=== PATIENT | female | born 2000 | race African-American/Black ===

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

== ENCOUNTER 2023-11-17 08:25 | Emergency (ER) | payer BC, OTHER, SELFPAY ==
[2023-11-17] MEDS ORDERED: NA CHLORIDE 0.9% 1,000 ML ONE (09:22)
[2023-11-17] MEDS ORDERED: ONDANSETRON 4 MG/2 ML VIAL ONE (09:22)
[2023-11-17 09:38] LABS: Absolute Basophils 0.1 K/uL (0-0.5); Absolute Lymphocytes (CBC) 1.7 K/uL (0.7-4.9); Absolute Monocytes 0.8 K/uL (0.1-1.3); Absolute Neutrophil 21.3 K/uL (1.8-8.0); Basophils % 0.3 % (0-1.3); Eosinophils % 0.1 % (0-4.4); Hematocrit 38.7 % (36.0-45.0); Hemoglobin 12.3 g/dL (12.0-15.0); Lymphocytes % 7.1 % (15.3-44.8); MCH 29.6 pg (27.0-35.0); MCHC 31.8 g/dL (32.0-36.0); MCV 93.2 fL (80-100); Monocytes % 3.4 % (3.3-12.3); Neutrophils % 89.1 % (41.7-73.7); Platelets 292 thou/uL (152-406); RBC Red Blood Cell Count 4.15 M/uL (3.86-4.86); Red Cell Distribution Width 14.1 % (12.1-15.2)
[2023-11-17 09:39] LABS: Sqamous Epithelial <5 /HPF (None Seen); Urine Bacteria None Seen /HPF (<20); Urine Bilirubin NEGATIVE (Negative); Urine Blood Negative (Negative); Urine Clarity Clear (Clear); Urine Color Light-Yellow (Yellow); Urine Culture Reflex Order NOT NEEDED; Urine Glucose NEGATIVE (Negative); Urine Ketones 4+ (Negative); Urine Microscopic Reflex YN ORDER UMIC; Urine Mucus Slight /HPF (None Seen); Urine Nitrite NEGATIVE (Negative); Urine Protein 1+ (Negative); Urine RBC None Seen /HPF (None Seen); Urine Urobilinogen Normal (Normal); Urine WBC <5 /HPF (<5)
[2023-11-17 09:52] LABS: Albumin 4.1 g/dL (3.4-5.0); Albumin/Globulin Ratio 1.2 (1.1-1.8); Anion Gap 13.9 mEq/L (5.0-15.0); Bilirubin Total 0.6 mg/dL (0.2-1.0); Globulin 3.5 g/dL (2.3-3.5); Potassium 3.9 mEq/L (3.5-5.1); Protein, Total 7.6 g/dL (6.4-8.2)
[2023-11-17 10:04] LABS: SARS-CoV-2 Antigen CONTROL BLUE LINE VIS/BG OK; SARS-CoV-2 Antigen Rapid Res Negative (Negative)
[2023-11-17 10:18] LABS: Differential Total Cells Count 100
[2023-11-17 10:19] LABS: Blood Morphology Comment NOT SEEN (NOT SEEN); Eosinophils 1 % (0-3); Lymphocytes 7 % (15-42); Monocytes 4 % (0-10); Platelet Estimate ADEQ; Segmented Neutrophils 87 % (40-80)
--- NOTE | 2023-11-17 10:19 | RAD REPORT ---
EXAM DESCRIPTION: CT - Abdomen Pelvis W Contrast - 11/17/2023 9:52 am CLINICAL HISTORY: Abdominal pain COMPARISON: none. TECHNIQUE: Computed axial tomography of the abdomen pelvis was obtained. 100 cc Isovue-300 was admin istered intravenously. Oral contrast was not requested which limits evaluation of bowel and appendix All CT scans are performed using dose optimization technique as appropriate and may include automated exposure control or mA/KV adjustment according to patient size. FINDINGS: The liver, spleen, pancreas, adrenal and kidneys appear unremarkable. There is no evidence of diverticulitis. The appendix is not clearly visualized. 3.9 centimeter left ovarian cystic mass. Small amount of free fluid Diastases of the rectus abdominis muscles 3 centimeters. Laxity of the abdominal wall at this region. Small bowel abuts linea alba above the level of the iliac crests IMPRESSION: 3.9 centimeter left ovarian cystic mass probably an ovarian cyst. Small amount of free f luid. The appendix is not clearly visualized. If the patient has clinical symptoms to suggest appendicitis then a CT scan with oral contrast and opacification of terminal ileum/cecum would be recommended
[2023-11-17] MEDS ORDERED: PROMETHAZINE INJ 25 MG/ML AMP ONE (10:41)
--- NOTE | 2023-11-17 13:17 | RAD REPORT ---
EXAM DESCRIPTION: CT - Abdomen Pelvis Wo Contrast - 11/17/2023 1:07 pm CLINICAL HISTORY: Abdominal pain. rule out appendicitis;Abd pain COMPARISON: <Comparisons> TECHNIQUE: CT imaging of the abdomen and pelvis was performed without contrast. Solid organ, bowel a nd vascular assessment is limited due to lack of IV and oral contrast. All CT scans are performed using dose optimization technique as appropriate and may include automated exposure control or mA/KV adjustment according to patient size. FINDINGS: The lower lung pollack are clear. The liver, spleen, pancreas, adrenal glands and kidneys are within normal limits for a limited non-co ntrast examination. No bowel obstruction, free air, free fluid or abscess. The appendix is normal. 4 cm left ovarian cys t. The osseous structures are within normal limits. IMPRESSION: Normal appendix. 4 cm left ovarian cyst. A limited non-contrast examination was performed as detailed.
--- NOTE | 2023-11-17 13:26 | ER ---
Nurse's Notes [facility] Name: Federico Conway Age: 23 yrs Sex: Female : 2000 Arrival Date: 11/17/2023 Time: 08:25 Bed 17 Private MD: Diagnosis: Vomiting, unspecified;Dehydration Presentation: 11/16 08:43 Chief complaint: Patient states: n/v, and umbilical pain / since 0300. Coronavirus kc6 screen: At this time, the client does not indicate any symptoms associated with coronavirus-19. Ebola Screen: No symptoms or risks identified at this time. Risk Assessment: Do you want to hurt yourself or someone else? Patient reports no desire to harm self or others. Onset of symptoms was November 17, 2023. 08:43 Method Of Arrival: Wheelchair kc6 08:43 Acuity: BRINDA 3 kc6 08:43 Initial Sepsis Screen: Does the patient meet any 2 criteria? No. Patient's initial kc6 sepsis screen is negative. Does the patient have a suspected source of infection? No. Patient's initial sepsis screen is negative. Triage Assessment: 08:46 General: Appears in no apparent distress. uncomfortable, well groomed, well developed, kc6 Behavior is calm, cooperative, appropriate for age, quiet. Pain: Complains of pain in umbilical area and suprapubic area Pain does not radiate. Pain currently is 9 out of 10 on a pain scale. EENT: No signs and/or symptoms were reported regarding the EENT system. Neuro: Level of Consciousness is awake, alert, obeys commands, Oriented to person, place, time, situation, Appropriate for age Reports headache. Cardiovascular: Capillary refill < 3 seconds. Respiratory: Airway is patent Trachea midline Respiratory effort is even, unlabored, Respiratory pattern is regular, symmetrical. GI: Pt is actively vomiting clear fluid, Bowel sounds present X 4 quads. Abd is soft X 4 quads Abdomen is tender to palpation in umbilical area Reports lower abdominal pain, upper abdominal pain, nausea, vomiting, Patient currently denies diarrhea. : No signs and/or symptoms were reported regarding the genitourinary system. Derm: No signs and/or symptoms reported regarding the dermatologic system. Skin is intact, is healthy with good turgor, Skin is pink, warm \T\ dry. Musculoskeletal: No signs and/or symptoms reported regarding the musculoskeletal system. Circulation, motion, and sensation intact. Capillary refill < 3 seconds, Range of motion: intact in all extremities. 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 - Infectious Disease History:: Denies. - Social history:: Smoking status: Patient denies any tobacco usage or history of. Screenin:48 [facility] ED Fall Risk Assessment (Adult) History of falling in the last 3 months, kc6 including since admission No falls in past 3 months (0 pts) Confusion or Disorientation No (0 pts) Intoxicated or Sedated No (0 pts) Impaired Gait No (0 pts) Mobility Assist Device Used No (0 pt) Altered Elimination No (0 pt) Score/Fall Risk Level 0 - 2 = Low Risk. Abuse screen: Denies threats or abuse. Denies injuries from another. Nutritional screening: No deficits noted. Tuberculosis screening: No symptoms or risk factors identified. Assessment: 08:48 Reassessment: please see triage. [facility] 09:32 Reassessment: Patient appears in no apparent distress at this time. No changes from [facility] previously documented assessment. Patient and/or family updated on plan of care and expected duration. Pain level reassessed. Patient is alert, oriented x 3, equal unlabored respirations, skin warm/dry/pink. 10:50 Reassessment: Patient appears in no apparent distress at this time. No changes from [facility] previously documented assessment. Patient and/or family updated on plan of care and expected duration. Pain level reassessed. Patient is alert, oriented x 3, equal unlabored respirations, skin warm/dry/pink. 11:15 Reassessment: pt reports finishing PO contrast. CT notified. [facility] 13:50 General: Discharge delayed as mother verbalized concern for low bp of 98/51. informed me[address] Dr Davis and he asked for PO Challenge. Water and crackers given. . Vital Signs: 08:43 BP 118 / 67; Pulse 75; Resp 16 S; Temp 97.3(A); Pulse Ox 100% on R/A; Weight 67.13 kg kc6 (R); Height 5 ft. 5 in. (R); Pain 9/10; 10:50 BP 120 / 62; Pulse 72; Resp 19 S; Pulse Ox 100% on R/A; kc6 13:50 BP 95 / 51; me1 13:50 BP 100 / 53; Pulse 92; Resp 16; Pulse Ox 100% on R/A; me1 14:19 BP 100 / 53; Pulse 73; Pulse Ox 100% on R/A; ap3 08:43 Body Mass Index 24.63 (67.13 kg, 165.1 cm) kc6 08:43 Pain Scale: Adult kc6 ED Course: 08:27 Patient arrived in ED. ra3 08:37 Sandor Davis MD is Attending Physician. rn 08:38 Darby Spencer RN is Primary Nurse. kc6 08:46 Triage completed. kc6 08:46 Arm band placed on. kc6 08:48 Patient has correct armband on for positive identification. Bed in low position. Call kc6 light in reach. Side rails up X 1. Adult w/ patient. Pulse ox on. NIBP on. Door closed. Lights dimmed. Pillow given. 08:58 Inserted saline lock: 20 gauge in right antecubital area, using aseptic technique. kc6 Blood collected. Flushed with 10 mL NS. 08:59 Assisted to bathroom. kc6 09:52 CT Abd/Pelvis - IV Contrast Only In Process Unspecified. EDMS 12:09 Report given to Natalie Serrano kc6 13:08 Abdomen In Process Unspecified. EDMS 14:29 Provided Education on: POC. Verbalized understanding. . me1 14:29 No provider procedures requiring assistance completed. me1 14:31 IV discontinued, intact, bleeding controlled, No redness/swelling at site. Pressure me1 dressing applied. Administered Medications: 09:31 Drug: NS 0.9% IV 1000 ml IV at 1 bolus Per protocol; 1000 mL bolus Route: IV; Rate: 1 kc6 bolus; Site: right antecubital; 10:47 Follow up: Response: No adverse reaction; IV Status: Completed infusion; IV Intake: kc6 1000ml 09:31 Drug: Ondansetron IVP 4 mg IVP once; over 2 minutes Route: IVP; Site: right antecubital;kc6 10:47 Follow up: Response: No adverse reaction; Nausea is decreased; Vomiting decreased kc6 10:47 Drug: Promethazine IVP 6.25 mg IVP once Route: IVP; Site: right antecubital; kc6 13:49 Follow up: Response: No adverse reaction; Nausea is decreased me1 Medication: 14:29 VIS not applicable for this client. me1 Intake: 10:47 IV: 1000ml; Total: 1000ml. kc6 Outcome: 13:25 Discharge ordered by . rn 14:31 Discharged to home ambulatory, with family, [facility] 14:31 Condition: stable 14:31 Discharge instructions given to patient, family, Instructed on discharge instructions, follow up and referral plans. medication usage, Demonstrated understanding of instructions, follow-up care, medications, Prescriptions given X 2, 14:33 Patient left the ED. me1 Signatures: Dispatcher [employer] EDSandor Aguila MD MD rn Prokisch, Amanda, RN RN norris3 Darby Spencer RN RN 6 Petra Gonzalez RN RN me1 Anna Garcia 3
--- NOTE | 2023-11-17 13:26 | EDPHYS ---
Physician Documentation [facility] Name: Federico Conway Age: 23 yrs Sex: Female : 2000 Arrival Date: 11/17/2023 Time: 08:25 Bed 17 Private MD: ED Physician Sandor Davis HPI: 11/16 09:22 This 23 yrs old Black Female presents to ER via Wheelchair with complaints of Vomiting. rn 09:22 23-year-old female with no significant past medical history presents to the emergency rn department with complaints of vomiting. The patient reports that she awoke around 3 AM this morning due to abdominal pain and has vomited several times without relief. She states that she was in her usual state of health yesterday and has never experienced the symptoms before. She also reports nausea, chills, and 1 loose bowel movement this morning. Denies sick contacts. Denies chest pain, shortness of breath, dizziness, weakness, urinary symptoms.. 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 - Infectious Disease History:: Denies. - Social history:: Smoking status: Patient denies any tobacco usage or history of. ROS: 09:36 ENT: Negative for injury, pain, and discharge, Cardiovascular: Negative for chest pain, rn palpitations, and edema, Respiratory: Negative for shortness of breath, cough, wheezing, and pleuritic chest pain, Back: Negative for injury and pain, : Negative for injury, bleeding, discharge, and swelling, Neuro: Negative for weakness, numbness, tingling 09:36 Constitutional: Positive for chills, malaise, Negative for fever, 09:36 Abdomen/GI: Positive for abdominal pain, nausea, vomiting, Negative for diarrhea, abdominal distension, dysphagia, hematemesis, 09:42 All other systems are negative, rn Exam: 09:44 Constitutional: This is a well developed, well nourished patient who is awake and rn alert but appears uncomfortable lying in the lateral recumbent position in bed. ENT: Nares patent. No nasal discharge, no septal abnormalities noted. Oropharynx with no redness, swelling, or masses, exudates, or evidence of obstruction, uvula midline. Mucous membranes moist. Neck: No cervical lymphadenopathy. Supple, full range of motion without nuchal rigidity. Cardiovascular: Regular rate and rhythm with a normal S1 and S2. No pulse deficits. Respiratory: Lungs have equal breath sounds bilaterally, clear to auscultation and percussion. No rales, rhonchi or wheezes noted. No increased work of breathing, no retractions or nasal flaring. 09:44 Abdomen/GI: Inspection: abdomen appears normal, Bowel sounds: normal, Palpation: soft, mild abdominal tenderness, in the umbilical area, right upper quadrant and right lower quadrant, rebound tenderness, is not appreciated, 09:44 : Exam negative for dysuria, CVA tenderness, bladder tenderness, Vital Signs: 08:43 BP 118 / 67; Pulse 75; Resp 16 S; Temp 97.3(A); Pulse Ox 100% on R/A; Weight 67.13 kg kc6 (R); Height 5 ft. 5 in. (R); Pain 9/10; 10:50 BP 120 / 62; Pulse 72; Resp 19 S; Pulse Ox 100% on R/A; kc6 13:50 BP 95 / 51; me1 13:50 BP 100 / 53; Pulse 92; Resp 16; Pulse Ox 100% on R/A; me1 14:19 BP 100 / 53; Pulse 73; Pulse Ox 100% on R/A; ap3 08:43 Body Mass Index 24.63 (67.13 kg, 165.1 cm) kc6 08:43 Pain Scale: Adult kc6 MDM: 08:37 Patient medically screened. rn 10:28 ED course: Radiologist unable to visualize appendix. Recommends oral contrast study and rn repeat CT abdomen pelvis. Patient with 23,000 white blood cell count, will obtain CT to definitively rule out appendicitis.. 13:25 Differential diagnosis: Nonspecific abd pain, gastritis, cholecystitis, pancreatitis, rn appendicitis, diverticulitis, viral gastroenteritis, gastroenteritis. Data reviewed: vital signs, nurses notes, lab test result(s), radiologic studies, CT scan, and as a result, I will discharge patient. Counseling: I had a detailed discussion with the patient and/or guardian regarding the historical points, exam findings, and any diagnostic results supporting the discharge/admit diagnosis, lab results, radiology results, the need for outpatient follow up, to return to the emergency department if symptoms worsen or persist or if there are any questions or concerns that arise at home. Response to treatment: the patient's symptoms have markedly improved after treatment, and as a result, I will discharge patient. 11/16 09:18 Order name: SARS RAPID; Complete Time: 10:08 rn 11/16 09:18 Order name: Flu; Complete Time: 10: rn 11/16 09:18 Order name: Urinalysis w/ reflexes; Complete Time: 09:52 rn 11/16 09:18 Order name: Test, Urine; Complete Time: 09:52 rn 11/16 09:18 Order name: CBC with Diff; Complete Time: 10:26 rn 11/16 09:18 Order name: CMP; Complete Time: 10: rn 11/16 09:18 Order name: Lipase; Complete Time: 10: rn 11/16 09:45 Order name: Manual Differential; Complete Time: 10:26 EDMS 11/16 09:18 Order name: CT Abd/Pelvis - IV Contrast Only; Complete Time: 10:26 rn 11/16 11:21 Order name: Abdomen ; Complete Time: 13:17 EDMS 11/16 09:18 Order name: IV Saline Lock; Complete Time: 09:20 rn 11/16 09:18 Order name: Labs collected and sent; Complete Time: 09:20 rn Administered Medications: 09:31 Drug: NS 0.9% IV 1000 ml IV at 1 bolus Per protocol; 1000 mL bolus Route: IV; Rate: 1 kc6 bolus; Site: right antecubital; 10:47 Follow up: Response: No adverse reaction; IV Status: Completed infusion; IV Intake: kc6 1000ml 09:31 Drug: Ondansetron IVP 4 mg IVP once; over 2 minutes Route: IVP; Site: right antecubital;kc6 10:47 Follow up: Response: No adverse reaction; Nausea is decreased; Vomiting decreased kc6 10:47 Drug: Promethazine IVP 6.25 mg IVP once Route: IVP; Site: right antecubital; kc6 13:49 Follow up: Response: No adverse reaction; Nausea is decreased me1 Disposition Summary: 11/17/23 13:25 Discharge Ordered Notes: Location: Home rn Problem: new rn Symptoms: have improved rn Condition: Stable rn Diagnosis - Vomiting, unspecified rn - Dehydration rn Followup: rn - With: Private Physician - When: As needed - Reason: Recheck today's complaints, Re-evaluation by your physician Discharge Instructions: - Discharge Summary Sheet rn - Dehydration, Adult rn - Nausea and Vomiting, Adult rn Forms: - Medication Reconciliation Form rn - Antibiotic improvement rn - Prescription Opioid Use rn - Patient Portal Instructions rn - Leadership Thank You Letter rn Prescriptions: - ondansetron 4 mg Oral Tablet,disintegrating - take 1 tablet ORAL route every 8 to 12 hours As needed as needed for nausea and rn vomiting; 12 tablet; Refills: 0, Product Selection Permitted - Augmentin 875-125 mg Oral Tablet - take 1 tablet ORAL route every 12 hours for 10 days; 20 tablet; Refills: 0, rn Product Selection Permitted Signatures: Dispatcher [employer] EDAL Sandor Davis MD MD rn Campbell, Kaitlyn, RN RN kc6 Petra Gonzalez RN me1 Corrections: (The following items were deleted from the chart) 09:19 09:19 CBC+H.LAB.BRZ ordered. EDAL EDAL 09:19 09:19 COMPREHENSIVE METABOLIC PANEL+C.LAB.BRZ ordered. EDAL EDAL 09:19 09:19 LIPASE+C.LAB.BRZ ordered. [facility] EDAL 09:44 09:36 ENT: Negative for injury, pain, and discharge, Cardiovascular: Negative for chest rn pain, palpitations, and edema, Respiratory: Negative for shortness of breath, cough, wheezing, and pleuritic chest pain, Back: Negative for injury and pain, : Negative for injury, bleeding, discharge, and swelling, Neuro: Negative for weakness, numbness, tingling rn 09:44 09:36 Abdomen/GI: Positive for abdominal pain, nausea, vomiting, Negative for abdominal rn distension, dysphagia, hematemesis, rn 11:21 10:28 Abdomen Pelvis W Con+CT.RAD.BRZ ordered. [facility] EDAL
[2023-11-17 15:00] VITALS: O2SAT 100
[2023-11-17 15:02] VITALS: TEMP 97.3
[2023-11-17 15:04] VITALS: BP 100/53
== END 2023-11-17 14:33 | disposition home or self-care (01) ==
LOC: ER 08:25
DX: E86.0 Dehydration (principal); Z11.52 Encounter for screening for COVID-19
CPT/HCPCS: 36415; 74176; 74177; 80053; 81001; 81025; 83690; 85025; 87804; 87811; 96361; 96374; 96375; 99284; J2405; J2550; J7030; Q9967

== ENCOUNTER 2024-03-14 18:23 | Emergency (ER) | payer OTHER, SELFPAY ==
[2024-03-14 19:17] LABS: Absolute Eosinophils 0.5 K/uL (0-0.5); Absolute Lymphocytes (CBC) 1.1 K/uL (0.7-4.9); Absolute Monocytes 0.5 K/uL (0.1-1.3); Absolute Neutrophil 10.6 K/uL (1.8-8.0); Basophils % 0.2 % (0-1.3); Eosinophils % 3.7 % (0-4.4); Hemoglobin 12.5 g/dL (12.0-15.0); Lymphocytes % 8.9 % (15.3-44.8); MCH 31.5 pg (27.0-35.0); MCHC 33.8 g/dL (32.0-36.0); MCV 93.3 fL (80-100); MPV 7.9 fL (7.6-11.3); Monocytes % 4.1 % (3.3-12.3); Neutrophils % 83.1 % (41.7-73.7); Platelets 281 thou/uL (152-406); RBC Red Blood Cell Count 3.96 M/uL (3.86-4.86); Red Cell Distribution Width 13.8 % (12.1-15.2)
[2024-03-14 19:36] LABS: SARS-CoV-2 Antigen CONTROL BLUE LINE VIS/BG OK; SARS-CoV-2 Antigen Rapid Res Negative (Negative)
[2024-03-14 19:51] LABS: Anion Gap 8.9 mEq/L (5.0-15.0); Potassium 3.9 mEq/L (3.5-5.1)
[2024-03-14] MEDS ORDERED: NA CHLORIDE 0.9% 1,000 ML ONE (19:57)
--- NOTE | 2024-03-14 20:12 | RAD REPORT ---
EXAM:OB Limited CLINICAL HISTORY: with vaginal bleeding TECHNIQUE: Limited OB ultrasound performed FINDINGS: Single live intrauterine in transverse presentation. Femur length 2 cm The placenta is anterior. No subchorionic/retroplacental bleed seen. Amniotic fluid normal Cervix 4.7 cm. The right and left adnexa are unremarkable. Cardiac activity 155 bpm. A myometrial contraction is suspected IMPRESSION: Single live intrauterine in transverse presentation. Estimated gestational 15 weeks 6 days JIMYM 08/30/2024. Normal amniotic fluid. If a survey is desired it should be performed in approximately 2-3 weeks
--- NOTE | 2024-03-14 20:29 | EDPHYS ---
Physician Documentation [facility] Name: Federico Conway Age: 23 yrs Sex: Female : 2000 Arrival Date: 03/14/2024 Time: 18:23 Bed 7 Private MD: ED Physician Elba Bell HPI: 03/14 18:51 This 23 yrs old Black Female presents to ER via Ambulatory with complaints of 15 wks dr5 , vomiting blood. 18:51 Patient is a 23-year-old female with no past medical history coming in with 1 episode dr5 of vomiting with small amount of blood in it. Patient also reports that she wiped once earlier with small amount of blood in it that has since resolved. Patient denies any pain. Patient reports that she has not vomited for 2 months. Patient currently denies any nausea, vomiting, diarrhea. Patient reports that her son at home was sent home from daycare with a fever. Patient reports she had a fever earlier this morning for approximately 2 hours that has resolved.. 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 - Infectious Disease History:: Denies. - Social history:: Smoking status: Patient denies any tobacco usage or history of. ROS: 18:51 Constitutional: as per hpi dr5 Exam: 18:51 Constitutional: This is a well developed, well nourished patient who is awake, alert, dr5 and in no acute distress. Head/Face: Normocephalic, atraumatic. Eyes: Pupils equal round and reactive to light, extra-ocular motions intact. Lids and lashes normal. Conjunctiva and sclera are non-icteric and not injected. Cornea within normal limits. Periorbital areas with no swelling, redness, or edema. Neck: Trachea midline, no thyromegaly or masses palpated, and no cervical lymphadenopathy. Supple, full range of motion without nuchal rigidity, or vertebral point tenderness. No Meningismus. Chest/axilla: Normal chest wall appearance and motion. Nontender with no deformity. No lesions are appreciated. Cardiovascular: Regular rate and rhythm with a normal S1 and S2. Normal PMI, no JVD. No pulse deficits. Respiratory: Lungs have equal breath sounds bilaterally, clear to auscultation. No rales, rhonchi or wheezes noted. No increased work of breathing, no retractions or nasal flaring. Abdomen/GI: Soft, non-tender, non-distended Skin: Warm, dry with normal turgor. Normal color with no rashes, no lesions, and no evidence of cellulitis. Neuro: Awake and alert, GCS 15, oriented to person, place, time, and situation. Cranial nerves II-XII grossly intact. Motor strength 5/5 in all extremities. Sensory grossly intact. Cerebellar exam normal. Normal gait. Vital Signs: 18:40 BP 122 / 84; Pulse 106; Resp 16; Temp 99.1; Pulse Ox 98% ; Weight 58.97 kg; Height 5 db ft. 5 in. ; 19:27 BP 117 / 82; Pulse 99; Resp 16; Pulse Ox 100% on R/A; al5 19:30 BP 117 / 75; Pulse 91; Resp 16; Pulse Ox 100% on R/A; al5 20:00 BP 108 / 71; Pulse 93; Resp 15; Pulse Ox 100% on R/A; al5 20:30 BP 104 / 73; Pulse 95; Resp 15; Pulse Ox 97% ; al5 18:40 Body Mass Index 21.63 (58.97 kg, 165.1 cm) db MDM: 18:35 Medical Screening Exam initiated dr5 03/15 00:09 Differential diagnosis: viral Infection, Spontaneous , Threatened . dr5 Data reviewed: vital signs, nurses notes. I considered the following discharge prescriptions or medication management in the emergency department Medications were administered in the Emergency Department. See MAR. Care significantly affected by the following Social Determinants of Health: Poor access to healthcare and/or lack of insurance, Poor access to transportation, Problems related to employment. Counseling: I had a detailed discussion with the patient and/or guardian regarding the historical points, exam findings, and any diagnostic results supporting the discharge/admit diagnosis, lab results, radiology results, the need for outpatient follow up, for definitive care, a family practitioner, an OB/Gyne specialist, to return to the emergency department if symptoms worsen or persist or if there are any questions or concerns that arise at home. Medication response: Improved pain. ED course: Explained all blood work and ultrasound results to patient. Printed out all results and handed to patient to take to OB. All questions answered. Patient is feeling much better. Negative COVID, flu. Increase hydration and take Tylenol every 6 hours as needed for pain.. 03/14 18:45 Order name: Influenza Screen (a \T\ B); Complete Time: 20:03 [facility] 03/14 18:45 Order name: SARS RAPID; Complete Time: 20:03 [facility] 03/14 18:45 Order name: Abo/rh Typing; Complete Time: 20:03 [facility] 03/14 18:45 Order name: Basic Metabolic Panel; Complete Time: 20:03 dr5 03/14 18:45 Order name: CBC with Diff; Complete Time: 20:03 [facility] 03/14 18:45 Order name: Quantitative Hcg; Complete Time: 20:03 [facility] 03/14 18:45 Order name: US OB Limited; Complete Time: 20:24 [facility] 03/14 18:45 Order name: IV Saline Lock; Complete Time: 19:27 [facility] 03/14 18:45 Order name: Labs collected and sent; Complete Time: 18:57 [facility] 03/14 18:45 Order name: NPO; Complete Time: 18:57 dr5 Administered Medications: 03/14 19:59 Drug: NS 0.9% IV 1000 ml IV at 1000 ml once; to be given as a bolus over 60 minutes al5 Route: IV; Rate: 1000 ml; Site: left antecubital; 20:36 Follow up: Response: No adverse reaction; IV Status: Order to discontinue infusion; IV al5 Intake: 200ml 20:36 Drug: Acetaminophen PO 1000 mg PO once Route: PO; al5 20:42 Follow up: Response: No adverse reaction; Medication administered at discharge. al5 Disposition Summary: 03/14/24 20:29 Discharge Ordered Notes: Location: Home dr5 Condition: Stable dr5 Diagnosis - Vomiting dr5 - 15 weeks gestation of dr5 Followup: dr5 - With: Emergency Department - When: As needed - Reason: Worsening of condition Followup: dr5 - With: Private Physician - When: 1 - 2 days - Reason: Recheck today's complaints, Continuance of care, Re-evaluation by your physician Discharge Instructions: - Discharge Summary Sheet dr5 - Vaginal Bleeding During , Second Trimester dr5 Forms: - Medication Reconciliation Form dr5 - Patient Portal Instructions dr5 - Leadership Thank You Letter dr5 Signatures: Dispatcher [employer] EDMS Jennifer Gipson, RN RN db Sherry Alcantara RN RN al5 Ilda Florence cc6 Benson Avila, BRADLEY-C JUDICIAL ASSISTANT-Cdr5 Corrections: (The following items were deleted from the chart) 18:45 18:45 OB Limited+US.RAD.BRZ ordered. EDMS EDMS 18:59 18:59 Urinalysis+U.LAB.BRZ ordered. EDMS EDMS 19:12 19:07 Misc. Order ordered. cc6 cc6
--- NOTE | 2024-03-14 20:29 | ER ---
Nurse's Notes [facility] Name: Federico Conway Age: 23 yrs Sex: Female : 2000 Arrival Date: 03/14/2024 Time: 18:23 Bed 7 Private MD: Diagnosis: Vomiting;15 weeks gestation of Presentation: 03/14 18:40 Chief complaint: Patient states: 15 WEEKS VOMITING A LOT THEN STARTED VOMITING db BLOOD. STARTED SPOTTING TODAY. Coronavirus screen: Client denies travel out of the [place] in the last 14 days. At this time, the client does not indicate any symptoms associated with coronavirus-19. Ebola Screen: Patient negative for fever greater than or equal to 101.5 degrees Fahrenheit, and additional compatible Ebola Virus Disease symptoms Patient denies exposure to infectious person. Patient denies travel to an Ebola-affected area in the 21 days before illness onset. No symptoms or risks identified at this time. Initial Sepsis Screen: Does the patient meet any 2 criteria? No. Patient's initial sepsis screen is negative. Does the patient have a suspected source of infection? No. Patient's initial sepsis screen is negative. Risk Assessment: Do you want to hurt yourself or someone else? Patient reports no desire to harm self or others. Onset of symptoms was March 14, 2024. 18:40 Method Of Arrival: Ambulatory db 18:40 Acuity: BRINDA 3 db Triage Assessment: 18:40 General: Appears in no apparent distress. comfortable, Behavior is calm, cooperative. db Neuro: Level of Consciousness is awake, alert, obeys commands, Oriented to person, place, time, situation. Respiratory: Airway is patent Respiratory effort is even, unlabored, Respiratory pattern is regular, symmetrical. GI: Reports nausea, vomiting. : Reports vaginal bleeding that is. 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 - Infectious Disease History:: Denies. - Social history:: Smoking status: Patient denies any tobacco usage or history of. Screenin:00 [facility] ED Fall Risk Assessment (Adult) History of falling in the last 3 months, ll1 including since admission No falls in past 3 months (0 pts) Confusion or Disorientation No (0 pts) Intoxicated or Sedated No (0 pts) Impaired Gait No (0 pts) Mobility Assist Device Used No (0 pt) Altered Elimination No (0 pt) Score/Fall Risk Level 0 - 2 = Low Risk Maintained a safe environment, Hourly rounding (assess needs \T\ fall precautionary measures) done. Abuse screen: Denies threats or abuse. Nutritional screening: No deficits noted. Tuberculosis screening: No symptoms or risk factors identified. Assessment: 19:00 General: Appears in no apparent distress. Behavior is calm, cooperative, appropriate ll1 for age. Pain: Denies pain. Respiratory: Reports cough that is. GI: Reports nausea, vomiting. EENT: Reports nasal congestion. 19:26 General: Appears in no apparent distress. comfortable, Behavior is calm, cooperative. al5 Pain: Denies pain. Neuro: Level of Consciousness is awake, alert, obeys commands, Oriented to person, place, time, situation. Cardiovascular: Capillary refill < 3 seconds Patient's skin is warm and dry. Respiratory: Airway is patent Respiratory effort is even, unlabored, Respiratory pattern is regular, symmetrical. GI: Reports nausea. : No signs and/or symptoms were reported regarding the genitourinary system. EENT: No signs and/or symptoms were reported regarding the EENT system. Derm: Skin is intact, is healthy with good turgor, Skin is pink, warm \T\ dry. normal. Musculoskeletal: No signs and/or symptoms reported regarding the musculoskeletal system. 20:43 Reassessment: Patient appears in no apparent distress at this time. Patient and/or al5 family updated on plan of care and expected duration. Pain level reassessed. Patient is alert, oriented x 3, equal unlabored respirations, skin warm/dry/pink. Patient states feeling better. Vital Signs: 18:40 BP 122 / 84; Pulse 106; Resp 16; Temp 99.1; Pulse Ox 98% ; Weight 58.97 kg; Height 5 db ft. 5 in. ; 19:27 BP 117 / 82; Pulse 99; Resp 16; Pulse Ox 100% on R/A; al5 19:30 BP 117 / 75; Pulse 91; Resp 16; Pulse Ox 100% on R/A; al5 20:00 BP 108 / 71; Pulse 93; Resp 15; Pulse Ox 100% on R/A; al5 20:30 BP 104 / 73; Pulse 95; Resp 15; Pulse Ox 97% ; al5 18:40 Body Mass Index 21.63 (58.97 kg, 165.1 cm) db ED Course: 18:25 Patient arrived in ED. mr 18:34 Benson Avila, METAL CONTROL COORDINATOR-C [facility]. dr5 18:34 Elba Bell MD is Attending Physician. dr5 18:40 Matt Aguila, RONNY is Primary Nurse. ll1 18:40 Arm band placed on Patient placed in an exam room, on a stretcher. ll1 18:46 Triage completed. db 18:57 SARS RAPID Sent. hb 18:57 Influenza Screen (a \T\ B) Sent. hb 18:59 Missed attempt(s): 22 gauge in left antecubital area. Bleeding controlled, band aid ll1 applied, catheter tip intact. 18:59 Initial lab(s) drawn, by va, sent to lab. Urine collected: clean catch specimen, ll1 cloudy, tea colored, Amount Voided: 200mL COVID swab sent to lab. Flu and/or RSV swab sent to lab. 19:26 Patient has correct armband on for positive identification. Bed in low position. Call al5 light in reach. Side rails up X 1. Provided Education on: plan of care. 19:27 No provider procedures requiring assistance completed. Inserted saline lock: 22 gauge al5 in left antecubital area, using aseptic technique. Flushed with 10 mL NS. 19:36 US OB Limited In Process Unspecified. EDMS 20:43 IV discontinued, intact, bleeding controlled, No redness/swelling at site. Pressure al5 dressing applied. Administered Medications: 19:59 Drug: NS 0.9% IV 1000 ml IV at 1000 ml once; to be given as a bolus over 60 minutes al5 Route: IV; Rate: 1000 ml; Site: left antecubital; 20:36 Follow up: Response: No adverse reaction; IV Status: Order to discontinue infusion; IV al5 Intake: 200ml 20:36 Drug: Acetaminophen PO 1000 mg PO once Route: PO; al5 20:42 Follow up: Response: No adverse reaction; Medication administered at discharge. al5 Medication: 19:26 VIS not applicable for this client. al5 Intake: 20:36 IV: 200ml; Total: 200ml. al5 Outcome: 20:29 Discharge ordered by . frida 20:43 Discharged to home ambulatory, with family, al5 20:43 Condition: good 20:43 Discharge instructions given to patient, Instructed on discharge instructions, follow up and referral plans. Demonstrated understanding of instructions, follow-up care, 20:43 Patient left the ED. al5 Signatures: Dispatcher [employer] EDAK Samantha Kelly, Reg Reg mr VillarrealCarlene, RN RN hb Matt Aguila RN RN ll1 Jennifer Gipson, RONNY RN db Sherry Alcantara RN RN al5 Benson Avila, METAL CONTROL COORDINATOR-C METAL CONTROL COORDINATOR-Cdr5 Corrections: (The following items were deleted from the chart) 18:47 18:40 BP 122 / 84; Pulse 106bpm; Resp 16bpm; Pulse Ox 98%; Temp 99.1F; 58.97 kg; Height db 5 ft. 5 in.; BMI: 21.6; db
[2024-03-14] MEDS ORDERED: ACETAMINOPHEN 500 MG TAB ONE (20:34)
[2024-03-14 21:40] VITALS: TEMP 99.1
[2024-03-14 21:47] VITALS: BP 104/73; O2SAT 97
== END 2024-03-14 20:43 | disposition home or self-care (01) ==
LOC: ER 18:23
DX: O21.9 Vomiting of pregnancy, unspecified (principal); Z3A.15 15 weeks gestation of pregnancy; Z11.52 Encounter for screening for COVID-19
CPT/HCPCS: 85025; 80048; 36415; 86900; 86901; 84702; 87804 ×2; 76815; 96360; 99284; 87811; J7030

== ENCOUNTER 2024-04-09 19:17 | Emergency (ER) | payer OTHER ==
[2024-04-09 20:32] LABS: Specific Gravity 1.024 (1.005-1.030)
[2024-04-09 20:39] LABS: Specific Gravity 1.025 (1.005-1.030); Sqamous Epithelial <5 /HPF (None Seen); Urine Bacteria <20 /HPF (<20); Urine Bilirubin NEGATIVE (Negative); Urine Blood Negative (Negative); Urine Clarity Clear (Clear); Urine Color Light-Yellow (Yellow); Urine Culture Reflex Order NOT NEEDED; Urine Glucose NEGATIVE (Negative); Urine Ketones NEGATIVE (Negative); Urine Micro Reflex YN NO BILL MICROSCOPIC; Urine Mucus Slight /HPF (None Seen); Urine Nitrite NEGATIVE (Negative); Urine Protein NEGATIVE (Negative); Urine RBC <5 /HPF (None Seen); Urine Urobilinogen Normal (Normal); Urine WBC <5 /HPF (<5); Urine pH 6.5 (5.0-7.0)
--- NOTE | 2024-04-09 22:30 | EDPHYS ---
Physician Documentation [facility] Name: Federico Conway Age: 23 yrs Sex: Female : 2000 Arrival Date: 04/09/2024 Time: 19:17 Bed 19 Private MD: ED Physician Dilshad Ruelas HPI: 04/09 20:05 This 23 yrs old Black Female presents to ER via Unassigned with complaints of Headache, sp4 Fever, 10 weeks . 20:16 23-year-old female presents with complaint of acute onset of fever 104 at home, sp4 starting at 10 AM today. Patient reported headache. Patient states she took Tylenol 2 hours prior to arrival. Patient is -0-0-1 at 18 weeks 6 days by LMP. LMP 11/29/2023. Patient is getting her obstetrical care at [place].. 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 - Infectious Disease History:: Denies. - Social history:: Smoking status: Patient denies any tobacco usage or history of. - Family history:: not pertinent. ROS: 20:16 Constitutional: Positive fever and hedache sp4 20:16 All other systems are negative, Exam: 20:16 Constitutional: This is a well developed, well nourished patient who is awake, alert, sp4 and in no acute distress. Head/Face: Normocephalic, atraumatic. Eyes: Pupils equal round and reactive to light, extra-ocular motions intact. Lids and lashes normal. Conjunctiva and sclera are not injected. Cornea within normal limits. Periorbital areas with no swelling, redness, or edema. ENT: Nares patent. No nasal discharge, no septal abnormalities noted. Tympanic membranes are normal and external auditory canals are clear. Oropharynx with no redness, swelling, or masses, exudates, or evidence of obstruction, uvula midline. Mucous membranes moist. Neck: Trachea midline, no thyromegaly or masses palpated, and no cervical lymphadenopathy. Supple, full range of motion without nuchal rigidity, or vertebral point tenderness. Chest/axilla: Normal chest wall appearance and motion. Nontender with no deformity. No lesions are appreciated. Cardiovascular: Regular rate and rhythm with a normal S1 and S2. No gallops, murmurs, or rubs. Normal PMI, no JVD. No pulse deficits. Respiratory: Lungs have equal breath sounds bilaterally, clear to auscultation and percussion. No rales, rhonchi or wheezes noted. No increased work of breathing, no retractions or nasal flaring. Abdomen/GI: Soft, with normal bowel sounds. No distension or tympany. No guarding or rebound. No evidence of tenderness throughout. Back: No spinal tenderness. No costovertebral tenderness. Skin: Warm, dry with normal turgor. Normal color with no rashes, no lesions, and no evidence of cellulitis. MS/ Extremity: Pulses equal, no cyanosis. Neurovascular intact. Full, normal range of motion. Neuro: Awake and alert, GCS 15, oriented to person, place, time, and situation. Cranial nerves II-XII grossly intact. Motor strength 5/5 in all extremities. Sensory grossly intact. Psych: Awake, alert, with orientation to person, place and time. Behavior, mood, and affect are within normal limits Vital Signs: 20:08 BP 109 / 66; Pulse 62; Resp 15; Temp 98.4(O); Pulse Ox 96% on R/A; Weight 63.05 kg; cm10 Height 5 ft. 5 in. ; Pain 7/10; 22:34 BP 118 / 72; Pulse 70; Resp 18; Temp 98; Pulse Ox 100% on R/A; kj2 20:08 Body Mass Index 23.13 (63.05 kg, 165.1 cm) cm10 20:08 Pain Scale: Adult cm10 [place] Coma Score: 20:16 Eye Response: spontaneous(4). Motor Response: obeys commands(6). Verbal Response: sp4 oriented(5). Total: 15. 20:16 Eye Response: spontaneous(4). Motor Response: obeys commands(6). Verbal Response: sp4 oriented(5). Total: 15. MDM: 20:06 Medical Screening Exam initiated sp4 20:16 Differential diagnosis: migraine, sinusitis, tension headache, vasomotor headache. Data sp4 reviewed: vital signs, nurses notes, old medical records, lab test result(s), Flu:. 04/09 20:06 Order name: Urinalysis W/Microscopic; Complete Time: 20:42 sp4 04/09 20:06 Order name: Test, Urine; Complete Time: 20:42 sp4 04/09 20:06 Order name: Influenza Screen (a \T\ B); Complete Time: 22:25 sp4 Administered Medications: No medications were administered Disposition Summary: 04/09/24 22:30 Discharge Ordered Notes: Location: Home sp4 Problem: new sp4 Symptoms: have improved sp4 Condition: Stable sp4 Diagnosis - Acute Viral Illness, Acute Fever sp4 Followup: sp4 - With: Private Physician - When: 7 - 10 days - Reason: Recheck today's complaints Discharge Instructions: - Discharge Summary Sheet sp4 - Viral Illness, Adult sp4 Forms: - Patient Portal Instructions sp4 - Work release form [facility] Prescriptions: - promethazine 25 mg Oral tablet - take 1 tablet ORAL route every 8 hours As needed PRN nausea; 30 tablet; sp4 Refills: 0, Product Selection Permitted Signatures: Dispatcher [employer] Dilshad Fernandez MD MD sp4 Lora Chua RN RN cm10 Corrections: (The following items were deleted from the chart) 20:14 20:08 Respiratory Syncytial Virus Ag+BA.LAB.BRZ ordered. EDMS EDMS 20:14 20:08 SARS-COV-2 Antigen Rapid+I.LAB.BRZ ordered. EDMS EDMS
--- NOTE | 2024-04-09 22:30 | ER ---
Nurse's Notes [facility] Name: Federico Conway Age: 23 yrs Sex: Female : 2000 Arrival Date: 04/09/2024 Time: 19:17 Bed 19 Private MD: Diagnosis: Acute Viral Illness, Acute Fever Presentation: 04/09 20:08 Chief complaint: Patient states: fever and headache onset today. 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 Coronavirus screen: Client denies travel out of the [place] in the last 14 days. Ebola Screen: Patient denies travel to an Ebola-affected area in the 21 days before illness onset. Initial Sepsis Screen: Does the patient meet any 2 criteria? No. Patient's initial sepsis screen is negative. Does the patient have a suspected source of infection? No. Patient's initial sepsis screen is negative. Risk Assessment: Do you want to hurt yourself or someone else? Patient reports no desire to harm self or others. Onset of symptoms was April 09, 2024. 20:08 Method Of Arrival: Ambulatory cm10 20:08 Acuity: BRINDA 4 cm10 Triage Assessment: 20:09 Headache History: Denies prior headaches. General: Appears in no apparent distress. cm10 uncomfortable, Behavior is calm, cooperative, appropriate for age. Neuro: No deficits noted. Level of Consciousness is awake, alert, obeys commands, Oriented to person, place, time, situation, Appropriate for age. Respiratory: No deficits noted. Airway is patent Respiratory effort is even, unlabored, Respiratory pattern is regular, symmetrical. 22:35 Pain: Pain began 1 day ago. Also complains of no other associated symptoms. 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 - Infectious Disease History:: Denies. - Social history:: Smoking status: Patient denies any tobacco usage or history of. - Family history:: not pertinent. Screenin:00 [facility] ED Fall Risk Assessment (Adult) History of falling in the last 3 months, kj2 including since admission No falls in past 3 months (0 pts) Confusion or Disorientation No (0 pts) Intoxicated or Sedated No (0 pts) Impaired Gait No (0 pts) Mobility Assist Device Used No (0 pt) Altered Elimination No (0 pt) Score/Fall Risk Level 0 - 2 = Low Risk Maintained a safe environment, Hourly rounding (assess needs \T\ fall precautionary measures) done. Abuse screen: Denies threats or abuse. Denies injuries from another. Nutritional screening: No deficits noted. Tuberculosis screening: No symptoms or risk factors identified. Assessment: 22:00 Reassessment: Patient appears in no apparent distress at this time. Patient and/or kj2 family updated on plan of care and expected duration. Pain level reassessed. Patient is alert, oriented x 3, equal unlabored respirations, skin warm/dry/pink. General: Appears Behavior is calm, cooperative. Pain: Complains of pain in headache Pain currently is 4 out of 10 on a pain scale. Neuro: Level of Consciousness is awake, alert, obeys commands, Oriented to person, place, time, situation. Cardiovascular: Patient's skin is warm and dry. Respiratory: Airway is patent Respiratory effort is even, unlabored. GI: No signs and/or symptoms were reported involving the gastrointestinal system. : No signs and/or symptoms were reported regarding the genitourinary system. 22:36 Reassessment: Patient appears in no apparent distress at this time. Patient and/or kj2 family updated on plan of care and expected duration. Pain level reassessed. Patient is alert, oriented x 3, equal unlabored respirations, skin warm/dry/pink. Vital Signs: 20:08 BP 109 / 66; Pulse 62; Resp 15; Temp 98.4(O); Pulse Ox 96% on R/A; Weight 63.05 kg; cm10 Height 5 ft. 5 in. ; Pain 7/10; 22:34 BP 118 / 72; Pulse 70; Resp 18; Temp 98; Pulse Ox 100% on R/A; kj2 20:08 Body Mass Index 23.13 (63.05 kg, 165.1 cm) cm10 20:08 Pain Scale: Adult cm10 [place] Coma Score: 20:16 Eye Response: spontaneous(4). Motor Response: obeys commands(6). Verbal Response: sp4 oriented(5). Total: 15. 20:16 Eye Response: spontaneous(4). Motor Response: obeys commands(6). Verbal Response: sp4 oriented(5). Total: 15. ED Course: 19:37 Patient arrived in ED. im 20:05 Dilshad Ruelas MD is Attending Physician. sp4 20:09 Triage completed. cm10 20:09 Arm band placed on right wrist. Patient placed in waiting room. cm10 22:00 Patient has correct armband on for positive identification. Call light in reach. Adult kj2 w/ patient. Provided Education on: call light. 22:32 Maryann Mora, RONNY is Primary Nurse. kj2 22:36 No provider procedures requiring assistance completed. Patient did not have IV access kj2 during this emergency room visit. Administered Medications: No medications were administered Medication: 22:35 VIS not applicable for this client. kj2 Outcome: 22:30 Discharge ordered by . sp4 22:36 Discharged to home kj2 22:36 Condition: stable 22:36 Discharge instructions given to patient, Instructed on discharge instructions, follow up and referral plans. 22:44 Patient left the ED. kj2 Signatures: Dilshad Ruelas MD MD sp4 Kusum Bingham Clarissa RN RN cm10 Maryann Mora RN RN kj2
[2024-04-12 01:46] VITALS: BP 118/72; TEMP 98; O2SAT 100
== END 2024-04-09 22:44 | disposition home or self-care (01) ==
LOC: ER 19:17
DX: O98.512 Other viral diseases complicating pregnancy, second trimester (principal); Z3A.18 18 weeks gestation of pregnancy
CPT/HCPCS: 81001; 81025; 87804; 99283

== ENCOUNTER 2024-05-29 21:08 | Emergency (ER) | payer OTHER ==
[2024-05-29 23:23] LABS: Absolute Basophils 0.1 K/uL (0-0.5); Absolute Eosinophils 0.4 K/uL (0-0.5); Absolute Lymphocytes (CBC) 2.1 K/uL (0.7-4.9); Absolute Monocytes 0.9 K/uL (0.1-1.3); Absolute Neutrophil 6.9 K/uL (1.8-8.0); Basophils % 0.6 % (0-1.3); Hematocrit 26.3 % (36.0-45.0); Hemoglobin 8.9 g/dL (12.0-15.0); MCH 31.7 pg (27.0-35.0); MCHC 33.7 g/dL (32.0-36.0); MPV 8.8 fL (7.6-11.3); Monocytes % 8.4 % (3.3-12.3); Platelets 182 thou/uL (152-406); Red Cell Distribution Width 13.7 % (12.1-15.2)
[2024-05-29 23:45] LABS: Albumin 2.7 g/dL (3.4-5.0); Albumin/Globulin Ratio 0.7 (1.1-1.8); Alkaline Phosphatase 79 U/L (45-117); Anion Gap 8.7 mEq/L (5.0-15.0); BUN Blood Urea Nitrogen 5 mg/dL (7-18); Bicarbonate 25 mEq/L (21-32); Glomerular Filtration Rate 131 ml/min (=/>90); Glucose Level 72 mg/dL (74-106); Magnesium 1.9 mg/dL (1.6-2.4); Potassium 3.7 mEq/L (3.5-5.1); Protein, Total 6.7 g/dL (6.4-8.2); Sodium Level 139 mEq/L (136-145)
[2024-05-29] MEDS ORDERED: NA CHLORIDE 0.9% 1,000 ML ONE (23:46)
[2024-05-29 23:51] LABS: ALT/SGPT < 14 U/L (13-56); AST/SGOT < 10 U/L (15-37); Bilirubin Direct < 0.2 mg/dL (0-0.2); Bilirubin Total < 0.2 mg/dL (0.2-1.0); Troponin High Sensitivity < 3.0 pg/mL (<58.9)
[2024-05-30 00:06] LABS: Specific Gravity 1.018 (1.005-1.030); Sqamous Epithelial <5 /HPF (None Seen); Urine Bacteria None Seen /HPF (<20); Urine Bilirubin NEGATIVE (Negative); Urine Blood Negative (Negative); Urine Clarity Turbid (Clear); Urine Color Light-Yellow (Yellow); Urine Culture Reflex Order NOT NEEDED; Urine Glucose NEGATIVE (Negative); Urine Ketones TRACE (Negative); Urine Microscopic Reflex YN ORDER UMIC; Urine Mucus Slight /HPF (None Seen); Urine Nitrite NEGATIVE (Negative); Urine Protein NEGATIVE (Negative); Urine RBC <5 /HPF (None Seen); Urine Urobilinogen Normal (Normal); Urine WBC <5 /HPF (<5)
--- NOTE | 2024-05-30 00:26 | ER ---
Nurse's Notes [facility] Name: Federico Conway Age: 23 yrs Sex: Female : 2000 Arrival Date: 05/29/2024 Time: 21:08 Bed 5 Private MD: Diagnosis: Headache Presentation: 05/29 21:26 Chief complaint: Patient states: Headache onset this morning. Pt states that around cm10 1800 today she felt light headed and stumbled. Pt states that her headache is now worse. pt is approximately 25 weeks . Coronavirus screen: Client denies travel out of the [place] in the last 14 days. Ebola Screen: Patient denies travel to an Ebola-affected area in the 21 days before illness onset. Initial Sepsis Screen: Does the patient meet any 2 criteria? No. Patient's initial sepsis screen is negative. Does the patient have a suspected source of infection? No. Patient's initial sepsis screen is negative. Risk Assessment: Do you want to hurt yourself or someone else? Patient reports no desire to harm self or others. Onset of symptoms was May 29, 2024. 21:26 Method Of Arrival: Ambulatory cm10 21:26 Acuity: BRINDA 3 cm10 Triage Assessment: 21:29 Headache History: Denies prior headaches. General: Appears in no apparent distress. cm10 comfortable, Behavior is calm, cooperative. Pain: Complains of pain in back of head Pain currently is 7 out of 10 on a pain scale. Quality of pain is described as throbbing, Pain began suddenly. Neuro: No deficits noted. Level of Consciousness is awake, alert, obeys commands, Oriented to person, place, time, situation, Appropriate for age. Respiratory: No deficits noted. Airway is patent Respiratory effort is even, unlabored, Respiratory pattern is regular, symmetrical. 23:50 Pain: Also complains of no other associated symptoms. 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 - Infectious Disease History:: Denies. - Social history:: Smoking status: Patient denies any tobacco usage or history of. Screenin:50 [facility] ED Fall Risk Assessment (Adult) History of falling in the last 3 months, al5 including since admission No falls in past 3 months (0 pts) Confusion or Disorientation No (0 pts) Intoxicated or Sedated No (0 pts) Impaired Gait No (0 pts) Mobility Assist Device Used No (0 pt) Altered Elimination No (0 pt) Score/Fall Risk Level 0 - 2 = Low Risk Oriented to surroundings, Maintained a safe environment, Hourly rounding (assess needs \T\ fall precautionary measures) done. Abuse screen: Denies threats or abuse. Denies injuries from another. Nutritional screening: No deficits noted. Tuberculosis screening: No symptoms or risk factors identified. Assessment: 23:50 Reassessment: assumed care of patient at this time. patient about 26 weeks al5 with 2nd child. General: Appears in no apparent distress. comfortable, Behavior is calm, cooperative. Pain: Denies pain. Neuro: Level of Consciousness is awake, alert, obeys commands, Oriented to person, place, time, situation. Cardiovascular: Capillary refill < 3 seconds Patient's skin is warm and dry. Respiratory: Airway is patent Respiratory effort is even, unlabored, Respiratory pattern is regular, symmetrical. GI: No signs and/or symptoms were reported involving the gastrointestinal system. : No signs and/or symptoms were reported regarding the genitourinary system. EENT: No signs and/or symptoms were reported regarding the EENT system. Derm: Skin is intact, is healthy with good turgor, Skin is pink, warm \T\ dry. normal. Musculoskeletal: No signs and/or symptoms reported regarding the musculoskeletal system. 05/30 01:00 Reassessment: Patient appears in no apparent distress at this time. Patient and/or al5 family updated on plan of care and expected duration. Pain level reassessed. Patient is alert, oriented x 3, equal unlabored respirations, skin warm/dry/pink. Patient states feeling better. Vital Signs: 05/29 21:26 BP 107 / 68; Pulse 80; Resp 16; Temp 97.9(O); Pulse Ox 100% ; Weight 63.5 kg; Height 5 cm10 ft. 5 in. ; Pain 7/10; 23:48 BP 96 / 51; Pulse 74; Resp 16; Pulse Ox 99% on R/A; al5 05/30 00:00 BP 94 / 57; Pulse 71; Resp 15; Pulse Ox 99% on R/A; al5 00:30 BP 96 / 56; Pulse 73; Resp 16; Pulse Ox 98% on R/A; al5 01:15 BP 91 / 58; Pulse 75; Resp 15; Pulse Ox 99% ; al5 05/29 21:26 Body Mass Index 23.30 (63.50 kg, 165.1 cm) cm10 05/29 21:26 Pain Scale: Adult cm10 Vitals: 00:30 Heart Tones FHT 152 bpm. al5 ED Course: 05/29 21:10 Patient arrived in ED. jj6 21:16 Kiley Marques FNP-C is PHCP. kb 21:16 Kris Jimenes MD is Attending Physician. kb 21:16 Dilshad Ruelas MD is Attending Physician. kb 21:28 Triage completed. cm10 21:30 Arm band placed on left wrist. Patient placed in waiting room. cm10 23:12 Inserted saline lock: 20 gauge in left antecubital area, using aseptic technique. Blood hw collected. Flushed with 10 mL NS. 23:50 Sherry Alcantara, RONNY is Primary Nurse. al5 23:50 Patient has correct armband on for positive identification. Bed in low position. Call al5 light in reach. Side rails up X2. Provided Education on: plan of care. 23:50 No provider procedures requiring assistance completed. al5 05/30 01:32 IV discontinued, intact, bleeding controlled, No redness/swelling at site. Pressure al5 dressing applied. Administered Medications: 05/29 23:50 Drug: NS 0.9% IV 1000 ml IV at 1000 ml once; to be given as a bolus over 60 minutes al5 Route: IV; Rate: 1000 ml; Site: left antecubital; 05/30 01:24 Follow up: Response: No adverse reaction; IV Status: Completed infusion; IV Intake: al5 1000ml Medication: 05/29 23:50 VIS not applicable for this client. al5 Intake: 05/30 01:24 IV: 1000ml; Total: 1000ml. al5 Outcome: 00:25 Discharge ordered by . mariam 01:32 Discharged to home ambulatory, with family, al5 01:32 Condition: good 01:32 Discharge instructions given to patient, Instructed on discharge instructions, follow up and referral plans. Demonstrated understanding of instructions, follow-up care, :32 Patient left the ED. al5 Signatures: Kiley Marques, CHEF INSTRUCTOR-C CHEF INSTRUCTOR-Ckb EladiaEduarda martinez jj6 Lora Chua, RN RN cm10 Sherry Alcantara RN RN al5 Nancy Devlin Corrections: (The following items were deleted from the chart) : 00:23 General: Appears in no apparent distress. comfortable, Behavior is calm, al5 cooperative, al5 00: Pain: Denies pain. al5 al5 : 00: Neuro: Level of Consciousness is awake, alert, obeys commands, Oriented to al5 person, place, time, situation, al5 00:23 Cardiovascular: Capillary refill < 3 seconds Patient's skin is warm and dry. al5 al5 : 00: Respiratory: Airway is patent Respiratory effort is even, unlabored, Respiratory al5 pattern is regular, symmetrical, al5 00: GI: No signs and/or symptoms were reported involving the gastrointestinal system. al5 al5 : 00: : No signs and/or symptoms were reported regarding the genitourinary system. al5al5 : 00:23 EENT: No signs and/or symptoms were reported regarding the EENT system. al5 al5 :: Derm: Skin is intact, is healthy with good turgor, Skin is pink, warm \T\ dry. al5 normal, al5 00:23 Musculoskeletal: No signs and/or symptoms reported regarding the musculoskeletal al5 system. al5 00:23 Reassessment: assumed care of patient at this time. patient about 26 weeks al5 with 2nd child al5
--- NOTE | 2024-05-30 00:26 | EDPHYS ---
Physician Documentation [facility] Name: Federico Conway Age: 23 yrs Sex: Female : 2000 Arrival Date: 05/29/2024 Time: 21:08 Bed 5 Private MD: ED Physician Dilshad Ruelas HPI: 05/29 21:24 This 23 yrs old Black Female presents to ER via Unassigned with complaints of kb Dizziness, Headache. 21:24 Pt is a 23 year old female who presents for headache and lightheadedness. Reports kb headache started this morning. States she was getting ready for work at 1800, got lightheaded and has had worsening headache since then. Denies nausea, vomiting. . 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 - Infectious Disease History:: Denies. - Social history:: Smoking status: Patient denies any tobacco usage or history of. ROS: 21:26 Constitutional: As per HPI kb Exam: 21:26 Constitutional: This is a well developed, well nourished patient who is awake, alert, kb and in no acute distress. Head/Face: Normocephalic, atraumatic. Eyes: Pupils equal round and reactive to light, extra-ocular motions intact. Lids and lashes normal. Conjunctiva and sclera are non-icteric and not injected. Cornea within normal limits. Periorbital areas with no swelling, redness, or edema. ENT: Moist Mucous membranes Cardiovascular: Regular rate Respiratory: Respirations even and unlabored. No increased work of breathing. Talking in full sentences Abdomen/GI: Soft, non-tender. No distention Skin: Warm, dry with normal turgor. Normal color. MS/ Extremity: Pulses equal, no cyanosis. Neurovascular intact. Full, normal range of motion. Neuro: Awake and alert, GCS 15, oriented to person, place, time, and situation. 05/30 00:22 ECG was reviewed by the Attending Physician. Vital Signs: 05/29 21:26 BP 107 / 68; Pulse 80; Resp 16; Temp 97.9(O); Pulse Ox 100% ; Weight 63.5 kg; Height 5 cm10 ft. 5 in. ; Pain 7/10; 23:48 BP 96 / 51; Pulse 74; Resp 16; Pulse Ox 99% on R/A; al5 05/30 00:00 BP 94 / 57; Pulse 71; Resp 15; Pulse Ox 99% on R/A; al5 00:30 BP 96 / 56; Pulse 73; Resp 16; Pulse Ox 98% on R/A; al5 01:15 BP 91 / 58; Pulse 75; Resp 15; Pulse Ox 99% ; al5 05/29 21:26 Body Mass Index 23.30 (63.50 kg, 165.1 cm) cm10 05/29 21:26 Pain Scale: Adult cm10 MDM: 05/29 21:16 Medical Screening Exam initiated 05/30 00:25 Differential diagnosis: cardiac arrhythmia, generalized weakness, idiopathic dizziness, kb near-syncope, . Data reviewed: vital signs, nurses notes. Counseling: I had a detailed discussion with the patient and/or guardian regarding the historical points, exam findings, and any diagnostic results supporting the discharge/admit diagnosis, lab results, the need for outpatient follow up, a family practitioner, an OB/Gyne specialist, to return to the emergency department if symptoms worsen or persist or if there are any questions or concerns that arise at home. 00:26 ED course: Pt reports headache has improved after IV fluids. Reports good kb movement.. 05/29 21:29 Order name: Basic Metabolic Panel; Complete Time: 23:51 kb 05/29 21:29 Order name: CBC with Diff; Complete Time: 23:47 kb 05/29 21:29 Order name: Hepatic Function; Complete Time: 23:51 kb 05/29 21:29 Order name: Magnesium; Complete Time: 23:51 kb 05/29 21:29 Order name: Troponin High Sensitivity; Complete Time: 23:51 kb 05/29 21:29 Order name: Urinalysis w/ reflexes; Complete Time: 00:09 kb 05/29 21:29 Order name: EKG; Complete Time: 21:29 kb 05/29 21:29 Order name: EKG - Nurse/Tech; Complete Time: 00:22 kb 05/29 21:29 Order name: IV Saline Lock; Complete Time: 23:41 kb 05/29 21:29 Order name: Labs collected and sent; Complete Time: 23:41 kb 05/29 21:29 Order name: NPO; Complete Time: 23:41 kb 05/29 21:29 Order name: O2 Per Protocol; Complete Time: 23:41 kb 05/29 21:29 Order name: O2 Sat Monitoring; Complete Time: 23:41 kb 05/29 21:29 Order name: FHT's; Complete Time: 00:30 kb EC:22 Rate is 59 beats/min. Rhythm is regular. QRS Basco is Normal. OH interval is normal at kb 164 msec. QRS interval is normal at 76 msec. QT interval is normal at 388 msec. Administered Medications: 05/29 23:50 Drug: NS 0.9% IV 1000 ml IV at 1000 ml once; to be given as a bolus over 60 minutes al5 Route: IV; Rate: 1000 ml; Site: left antecubital; 05/30 01:24 Follow up: Response: No adverse reaction; IV Status: Completed infusion; IV Intake: al5 1000ml Disposition: 22:32 Co-signature as Attending Physician, Dilshad Ruelas MD I agree with the assessment sp4 and plan of care. I reviewed the patient's care provided by the Advanced Practice Provider and agree with the diagnosis and treatment plan. Disposition Summary: 05/30/24 00:25 Discharge Ordered Notes: Location: Home kb Condition: Stable kb Diagnosis - Headache kb Followup: kb - With: Emergency Department - When: As needed - Reason: Worsening of condition Followup: kb - With: Private Physician - When: 2 - 3 days - Reason: Recheck today's complaints, Continuance of care, Re-evaluation by your physician Discharge Instructions: - Discharge Summary Sheet kb - General Headache Without Cause, [id number] kb Forms: - Medication Reconciliation Form kb - Antibiotic Education kb - Prescription Opioid Use kb - Patient Portal Instructions kb - Leadership Thank You Letter kb - Work release form al5 Signatures: Dispatcher [employer] EDKiley Robles FNP-C FNP-Ckb Potepalov, Sergey, MD MD sp4 Lora Chua RN RN cm10 Sherry Alcantara, RN RN al5
[2024-05-30 01:47] VITALS: TEMP 97.9
[2024-05-30 02:00] VITALS: BP 91/58; O2SAT 99
== END 2024-05-30 01:32 | disposition home or self-care (01) ==
LOC: ER 21:08
DX: O26.892 Other specified pregnancy related conditions, second trimester (principal); R51.9 Headache, unspecified; Z3A.26 26 weeks gestation of pregnancy
CPT/HCPCS: 96361; 93005; 85025; 81001; 80048; 36415; 83735; 80076; 84484; 96360; 99284; J7030

== ENCOUNTER 2024-11-13 16:08 | Emergency (ER) | payer BC, OTHER ==
[2024-11-13] MEDS ORDERED: ACETAMINOPHEN 500 MG TAB ONE (16:13)
--- OUTSIDE RECORDS SUMMARY | 2024-11-13 16:16 | XMS REPORT | Continuity of Care Document ---
Author Name Unknown Address [address] [facility] [place] [address] [facility] Address [address] [facility] [place] [address] Care Team Providers Care Smokehouse Operator Name Role Phone PCP, NO Primary Care Physician Unavailab DR FREDI Read Attending Clinician Unavailabl e [phone] Attending Clinician Unavailable LOYD PERALTA Attending Clinician Unavaila LOYD Cruz Attending Clinician Unavailable PAUL FERGUSON Attending Clinician Unavailab le LAB90 Attending Clinician Unavailable Steve Hughes Attending Clinician Resource, V Ecg Gen Ecg Attending Clinician U sammy Guerrero MD, Olaf Lopez Attending Clinician +- [phone] OLAF GUERRERO Attending Clinician Unavailabl e Doctor Unassigned, [place] Attending Clinician U RAINA Mcfarland Attending Clinician Unavaila TE Bryan Attending Clinician Unavailabl Julianna French Attending Clinician Unavailable MICHELLE DAMIAN Attending Clinician Unavailable Emergency, Pl Ecg Attending Clinician Unavailabl Jeanne Agudelo Attending Clinician Unavailable Gamaliel RUIZ, Raina Gallo Attending Clinician [phone] XIN MORRIS Attending Clinician Unavail able KELSI PARISH Attending Clinician Unavailable Carol Ann Calles APRN Attending Cli nician Nguyen_Tho Attending Clinician Unavailable JOSIE Attending Clinician Unavailable LORRAINE, DR NEAL Attending Clinician Unavailable Layne De La O RN Attending Clinician Unavailab MATILDE GarciaA Carlos Attending Clinician Unavailab ron Brown AIR QUALITY CONSULTANT, Roshunda R Attending Clinician + [phone] LUIS FERNANDO, DR CANO Attending Clinician Unavailable JORDI, DR CESAR Jesus Attending Clinician Unavailabl e JORDI, DR ARTIS Attending Clinician Unavailable ALEN, DR FORD Attending Clinician Unavailable MALDONADO YU Attending Clinician Shaila BREWER, DR HITCHCOCK Attending Clinician Unavailable DR NEGRITO DOWLING Attending Clinician Unavailable DR ANNITA NEFF Attending Clinician Unava nabila BACON, DR RAI Admitting Clinician Unavailabl LOYD Conroy Admitting Clinician Unavaila ayanna Guerrero MD, Olaf Lopez Admitting Clinician [phone]- [phone] OLAF GUERRERO Admitting Clinician Unavailabl andreas WOODRUFF Admitting Clinician Unavailable Nguyen_Tho Admitting Clinician Unavailable JOSIE Admitting Clinician Unavailable DR VAL PETERS Admitting Clinician Unavailable DR JEROME GOULD Admitting Clinician Unavailable DR CESAR BACON Admitting Clinician Unavaildebra BACON, DR ARTIS Admitting Clinician Unavailable ALEN, DR FORD Admitting Clinician Unavailable MALDONADO YU Admitting Clinician DR NALDO Rasmussen Admitting Clinician Unavailable DR NEGRITO DOWLING Admitting Clinician DR ANNITA Perry Admitting Clinician Annamarie dahl Payers Payer Name Policy Type Policy Number Effective Date Expirati on Date Source [facility] CHIP [id number] 2015 00:00:00 2021 00:00:00 [facility] [id number] BCBS 2 [id number] 2024 00:00:00 BCBS COMM [id number] 2024 00:00:00 [facility] Medicaid [id number] 2023 00:00:00 [facility]LY [facility] [id number] 2024 00:00:00 [facility] [place] [facility] [id number] 00:00:00 [facility] (ERS-BCBS CAPITATED) 9 [id number] 2023 00:00:00 [facility] [place]ICA[place] [id number] 2022 00:00:00 [facility] [place] [facility] [id number] 2022 00:00:00 [facility] [id number] 0732 [id number] 2022 00:00:00 [facility] [id number] 00:00:00 0775 [id number] 2018 00:00:00 Problems Condition Name Condition Details Condition Category Status Onset Date Resolution Date Last Treatment Date Treating Clinician Comments Source Well adult exam Well adult exam Disease Active 11-07 00:00: 00 Kristen Seybold - Externa l Coccygeal pain Coccygeal pain Disease Active 11-07 00:00: 00 Kristen Seybold - Externa l Preeclamps ia in period Preeclamps ia in period Disease Active 08-26 00:00: 00 Rossi Naidu [facility] Encounter for visit Encounter for visit Disease Active 08-26 00:00: 00 [facility] Encounter for care or examinatio n of mother immediatel y after delivery Encounter for care or examinatio n of mother immediatel y after delivery Disease Active 5-23 00:00: 00 Rossi Trujillo Flu vaccine refused Flu vaccine refused Disease Active 2023-03 030 00:00: 00 [facility] History of anxiety and depression History of anxiety and depression Disease Active 2023-03 0 00:00: 00 [facility] Iron deficiency anemia Iron deficiency anemia Disease Active 2022-03 1 00:00: 00 Kristen Combs - Licoa karlee Vulvar lesion Vulvar lesion Disease Active 2021-03 0-13 00:00: 00 [facility] ANATOMY US ANATOMY US Active 09/01/2021 [place] Diagnosis Active 6-08 00:00: 00 2021-09-02 11:25:00 Rossi Naidu Supervisio n of normal first teen , unspecifie d trimester Supervisio n of normal first teen , unspecifie d trimester Disease Active 3-21 00:00: 00 [facility] VAGINAL VAGINAL Active 01/25/2021 [place] Diagnosis Active 2020-03 1 08:00: 00 2021-10-19 21:27:00 Rossi Naidu Delivery normal (disorder) Delivery normal (disorder) Active Problem 12/11/2021 [facility] [place] Problem Active 2021-12-11 23:02:48 Rossi Naidu Current moderate episode of major depressive disorder without prior episode Current moderate episode of major depressive disorder without prior episode Disease Resolve d 2022-03 00:00: 00 2024-11-07 00:00:00 2024-11-07 09:46:43 Kristen desir Encounter for vaginal delivery Encounter for vaginal delivery Disease Resolve d 5- 00:00: 00 2024-08-16 00:00:00 2024-08-16 10:08:06 Rossi Trujillo Maternal varicella, non-immune Maternal varicella, non-immune Disease Resolve d 2-02 00:00: 00 2024-01-24 00:00:00 2024-01-24 08:48:01 Overview: Formatsophia g of this note might be different from the original. Address in PP [facility] Supervisio n of high risk , antepartum Supervisio n of high risk , antepartum Disease Resolve d 2- 00:00: 00 2024-01-24 00:00:00 2024-01-24 08:48:03 [facility] High risk teen in second trimester High risk teen in second trimester Disease Resolve d 2- 00:00: 00 2024-01-24 00:00:00 2024-01-24 08:48:04 [facility] Primigravi da in first trimester Primigravi da in first trimester Disease Resolve d 2- 00:00: 00 2024-01-24 00:00:00 2024-01-24 08:48:05 [facility] Patient currently (finding) Patient currently (finding) Resolved 01/18/2021 Problem 12/11/2021 [facility] [place] Problem Resolve d 2020-03 0 00:00: 00 2021-12-11 23:02:48 2021-12-11 23:02:48 Rossi Naidu History of Past Illness Condition Name Condition Details Condition Category Status Onset Date Resolution Date Last Treatment Date Treating Clinician Comments Source state, incidental state, incidental 2 10/25/2021 [place] Problem 7-30 14:39: 00 2021-10-25 22:39:35 2021-10-25 22:39:35 Rossi Naidu Allergies, Adverse Reactions, Alerts Allergy Name Allergy Type Status Severity Reaction(s) Onset Date Inactive Date Treating Clinician Comments Source No Known Allergie s DA Active U 08-16 00:00: 00 [facility] No Known Allergie s DA Active U 08-16 00:00: 00 [facility] No Known Drug Allergie s DA Active Unknown 15 00:00: 00 [facility] NO KNOWN ALLERGIE S Drug Class Active [facility] Social History Social Habit Start Date Stop Date Quantity Comments Source Sexual orientation 2024-08-15 04:00:21 Heterosexual (finding) [facility] History of tobacco use Passive smoker [facility] ASSERTION Not Kristen Combs - External Gender identity Tracy kiersten Combs - External History SDOH Alcohol Std Drinks [facility] History SDOH Alcohol Binge [facility] History SDOH Alcohol Comment [facility] Alcoholic beverage intake 2024-11-07 00:00:00 2024-11-07 00:00:00 Lifetime non-drinker (finding) Kristen Combs - External History of Social function 2024-08-26 00:00:00 2024-08-26 00:00:00 [facility] Tobacco use and exposure 2024-08-14 00:00:00 2024-08-14 00:00:00 Smokeless tobacco non-user [facility] Alcohol intake 2023-02-20 00:00:00 2023-02-20 00:00:00 Lifetime non-drinker (finding) Kristen Combs - External Sex 2023-01-31 09:05:47 2023-01-31 09:05:47 Female (finding) Kristen Combs - External Social History 2021-10-20 04:26:59 2021-10-20 04:26:59 [facility] History SDOH Alcohol Frequency 2021-06-14 00:00:00 2021-06-14 00:00:00 1 [facility] Exposure to SARS-CoV-2 (event) 2021-03-28 00:00:00 2021-04-27 10:12:00 Not sure [facility] Sex assigned at 2002 00:00:00 2000 00:00:00 F [facility] Smoking Status Start Date Stop Date Source Never smoked tobacco Kristen Combs - External Medications Ordered Medication Name Filled Medication Name Start Date Stop Date Current Medication? Ordering Clinician Indication Dosage Frequency Signature (SIG) Comments Components Source Ferrous Sulfate 27 MG oral Tablet Ferrous Sulfate 27 MG oral Tablet 11-07 09:33: 05 11-07 00:00 :00 No [id number] Take by mouth. Kristen Combs - Externa l ibuprofen tablet 600 mg ibuprofen tablet 600 mg 08-26 16:15: 00 08-26 16:28 :00 No 600mg 600 mg, Oral, Once, On Mon08/26/24 at 1615, For 1 dose Rossi Trujillo acetaminoph en (Tylenol) tablet 1,000 mg acetaminoph en (Tylenol) tablet 1,000 mg 08-26 16:15: 00 08-26 16:28 :00 No 1000mg 1,000 mg, Oral, Once, On Mon08/26/24 at 1615, For 1 dose Rossi Trujillo ferrous sulfate 27 MG tablet ferrous sulfate 27 MG tablet 08-16 18:38: 44 08-16 00:00 :00 No 27mg Take 27 mg by mouth 1 time. Rossi Trujillo VIT-DSS-FE FUM-FA PO VIT-DSS-FE FUM-FA PO 08-16 18:38: 40 Yes 1{tbl} Take 1 tablet by mouth 1 time. Rossi Trujillo acetaminoph en (Tylenol) 500 MG tablet acetaminoph en (Tylenol) 500 MG tablet 08-16 00:00: 00 08-26 23:59 :00 No 1000mg Q6H Take 2 tablets by mouth in the morning and 2 tablets at noon and 2 tablets in the evening and 2 tablets before bedtime. Do all this for 10 days. Rossi Trujillo ibuprofen 600 MG tablet ibuprofen 600 MG tablet 08-16 00:00: 00 08-26 23:59 :00 No 600mg Q6H Take 1 tablet by mouth in the morning and 1 tablet at noon and 1 tablet in the evening and 1 tablet before bedtime. Do all this for 10 days. Rossi Trujillo hydrocortis one 1 % cream hydrocortis one 1 % cream 08-15 10:30: 00 Yes Q.5D Topical, 2 times daily, First dose on Mon08/15/24 at 1030 Rossi Trujillo multivitami n () 1 tablet multivitami n () 1 tablet 08-15 09:00: 00 Yes 1{tbl} QD 1 tablet, Oral, Daily, First dose on Mon08/15/24 at 0900, - Vaginal, provides 0.8 mg folic acid Rossi Trujillo acetaminoph en (Tylenol) tablet 1,000 mg acetaminoph en (Tylenol) tablet 1,000 mg 08-14 22:15: 00 Yes 1000mg Q6H 1,000 mg, Oral, Every 6 hours, First dose on Mon08/14/24 at 2215, - Vaginal, DO NOT GIVE IF PATIENT HAS RECEIVED ACETAMINOP HEN IN THE PAST SIX HOURS. Max acetaminop hen from all sources = 4 grams in 24 hours Rossi Trujillo ibuprofen tablet 600 mg ibuprofen tablet 600 mg 08-14 22:15: 00 Yes 600mg Q6H 600 mg, Oral, Every 6 hours, First dose on Mon08/14/24 at 2215, - Vaginal, Not to be given within 6 hours of Ketorolac. Maximum ibuprofen from all sources = 3,200 mg in 24 hours Rossi Trujillo lactated Ringer's infusion lactated Ringer's infusion 08-14 22:15: 00 Yes 125mL/h 125 mL/hr, Intravenou s, Continuous , Starting on Mon08/14/24 at 2215, - Vaginal, Decrease rate to 30 ml/hr while infusing the post delivery 20 Units of Oxytocin Rossi Trujillo naloxone (Narcan) injection 0.1 mg naloxone (Narcan) injection 0.1 mg 08-14 22:00: 51 Yes .1mg Q6H 0.1 mg, Subcutaneo us, Every 6 hours PRN, itching, Starting on Mon08/14/24 at 2200, - Vaginal, Administer Naloxone for itching/pr uritus only if Nalbuphine is unavailabl e Rossi Trujillo nalbuphine (Nubain) injection 2 mg nalbuphine (Nubain) injection 2 mg 08-14 22:00: 51 Yes 2mg 2 mg, Intravenou s, Every 2 hour PRN, moderate pain (4-6), itching, Starting on Mon08/14/24 at 2200, For 5 doses, - Vaginal, Primary medication to be used for itching/ pruritus Rossi Trujillo ondansetron (Zofran) injection 4 mg ondansetron (Zofran) injection 4 mg 08-14 22:00: 51 Yes 4mg Q8H 4 mg, Intravenou s, Every 8 hours PRN, nausea, vomiting, Starting on Mon08/14/24 at 2200, - Vaginal, (Slow IV push over 2-5 minutes). If nausea and vomiting uncontroll ed with Ondansetro n, give Promethazi ne Rossi Trujillo tranexamic acid (Cyklokapro n) 1,000 mg in sodium chloride 0.9 % 100 mL IVPB-MB+ tranexamic acid (Cyklokapro n) 1,000 mg in sodium chloride 0.9 % 100 mL IVPB-MB+ 08-14 22:00: 51 Yes 1000mg 1,000 mg, Intravenou s, at 660 mL/hr, Administer over 10 Minutes, Oncall, Starting on Mon08/14/24 at 2200, For 1 dose, - Vaginal, For OB hemorrhage per physician direction: ? 1 gm in 100 mL NS and infuse over 10 mins. Give within 3 hrs of delivery. Mini-Bag Plus bag. Break seal and mix before use, as follows: For liquid drug vials, skip to step 2. 1. Hold bag with vial down. Squeeze solution into vial until half-full. Shake to suspend drug in solution. 2. Hold bag with vial upside down. Squeeze bag to force air into vial, then release to drain suspended drug from vial into bag. 3. Repeat above until vial is empty of drug and solution is thoroughly mixed. Ensure drug is completely dissolved. Do not remove drug vial. 4. Remove port protector, attach admin set per its instructio ns, then hang container from IV pole and prime set per directions . Do not use in series connection s. 5. Ensure the vial is empty of drug and in solution, then administer medication as ordered. Use within specified BUD., Tranexamic Acid Indication : Hemorrhage : BODY HANGER Rossi Trujillo carboprost (Hemabate) injection 250 mcg carboprost (Hemabate) injection 250 mcg 08-14 22:00: 51 Yes 250ug 250 mcg, Intramuscu lar, Oncall, Starting on Mon08/14/24 at 2200, For 1 dose, - Vaginal, For post hemorrhage ONLY per physician direction. Hold for Asthmatic patients Rossi Trujillo diphenoxyla te-atropine (Lomotil) 2.5-0.025 MG per tablet 2 tablet diphenoxyla te-atropine (Lomotil) 2.5-0.025 MG per tablet 2 tablet 08-14 22:00: 51 Yes 2{tbl} 2 tablet, Oral, Oncall, Starting on Mon08/14/24 at 2200, For 1 dose, - Vaginal, GIVE WITH Carboprost Rossi Trujillo methylergon ovine (Methergine ) injection 200 mcg methylergon ovine (Methergine ) injection 200 mcg 08-14 22:00: 51 Yes [id number] 200ug 200 mcg, Intramuscu lar, Oncall, Starting on Mon08/14/24 at 2200, For 1 dose, - Vaginal, For post hemorrhage ONLY per physician direction. Hold if BP > 140/90 mmHg Hazardous Drug Group 3: Reproducti ve risk Hazardous Drug -- Refer to safe handling procedure PPE Matrix, Indication s: Hemorrhage Rossi Trujillo miSOPROStol (Cytotec) tablet 1,000 mcg miSOPROStol (Cytotec) tablet 1,000 mcg 08-14 22:00: 51 Yes 1000ug 1,000 mcg, Rectal, Oncall, Starting on Mon08/14/24 at 2200, For 1 dose, - Vaginal, For post hemorrhage per physician direction up to 1000 micrograms Hazardous Drug Group 3: Reproducti ve risk Hazardous Drug -- Refer to safe handling procedure PPE Matrix Rossi Trujillo lactated Ringer's bolus 1,000 mL lactated Ringer's bolus 1,000 mL 08-14 22:00: 51 Yes 1000mL 1,000 mL, Intravenou s, at 1,000 mL/hr, Administer over 1 Hours, Oncall, Starting on Mon08/14/24 at 2200, For 1 dose, - Vaginal, For OB hemorrhage per physician direction Rossi Trujillo witch kalpana-glyce rin (Tucks) pad witch kalpana-glyce rin (Tucks) pad 08-14 22:00: 51 Yes Topical, As needed, irritation , Perineal Care, Starting on Mon08/14/24 at 2200, - Vaginal, Keep at bedside Rossi Trujillo simethicone (Mylicon) chewable tablet 160 mg simethicone (Mylicon) chewable tablet 160 mg 08-14 22:00: 51 Yes 160mg Q8H 160 mg, Oral, Every 8 hours PRN, flatulence , Gas prior to discharge, Starting on Mon08/14/24 at 2200, - Vaginal Rossi Trujillo benzocaine- menthol (Dermoplast ) 20-0.5 % topical spray 1 spray benzocaine- menthol (Dermoplast ) 20-0.5 % topical spray 1 spray 08-14 22:00: 51 Yes 1{spray } Topical, As needed, mild pain (1-3), to Perineal area; Leave with patient, Starting on Mon08/14/24 at 220, - Vaginal Rossi Trujillo lanolin (Lansinoh) cream 1 Application lanolin (Lansinoh) cream 1 Application 08-14 22:00: 51 Yes 1{appli cation} 1 Applicatio n, Topical, As needed, dry skin, for nipples, Starting on Mon08/14/24 at 2200, - Vaginal, Patient to apply to nipples after feeding to prevent cracking or for nipple soreness if breast feeding. Leave at bedside. It can be given on the floor. Rossi Trujillo sodium phosphate (Fleets) enema 133 mL sodium phosphate (Fleets) enema 133 mL 08-14 22:00: 51 Yes 1{enema } Q24H 133 mL (1 enema), Rectal, Daily PRN, Constipati on, Starting on Mon08/14/24 at 2200, - Vaginal Rossi Trujillo bisacodyl (Dulcolax) suppository 10 mg bisacodyl (Dulcolax) suppository 10 mg 08-14 22:00: 51 Yes 10mg Q24H 10 mg, Rectal, Daily PRN, constipati on, no flatus, or no bowel movement, Starting on Mon08/14/24 at 2200, - Vaginal, Use if PO med unsuccessf ul Rossi Trujillo bisacodyl (Dulcolax) EC tablet 15 mg bisacodyl (Dulcolax) EC tablet 15 mg 08-14 22:00: 51 Yes 15mg Q24H 15 mg, Oral, Daily PRN, constipati on, constipati on no flatus, or no bowel movement, Starting on Mon08/14/24 at 2200, - Vaginal, Do not give within 1 hour of antacids, milk, or dairy products. Do not crush, chew, or split. Rossi Trujillo oxytocin (Pitocin) injection 10 Units oxytocin (Pitocin) injection 10 Units 08-14 22:00: 51 08-16 21:59 :51 No [id number] 10U 10 Units, Intramuscu lar, Oncall, Starting on Mon08/14/24 at 2200, For 1 dose, - Vaginal, For post HEMORRHAGE ONLY per physician direction Hazardous Drug Group 3: Reproducti ve risk Hazardous Drug -- Refer to safe handling procedure PPE Matrix, Indication s: Hemorrhage Rossi Trujillo oxytocin (Pitocin) 30 units in sodium chloride 0.9 % 500 mL 20 Units oxytocin (Pitocin) 30 units in sodium chloride 0.9 % 500 mL 20 Units 08-14 19:15: 00 08-15 19:18 :00 No 20U 20 Units, Intravenou s, Continuous , Starting on Mon08/14/24 at 1915, For 1 day, Recovery & On Unit, POST OXYTOCIN INFUSION ---?20?uni ts/333 mL to be infused over 3.5 hours. Set infusion pump to 95 ml/hr. decrease LR to 30 ml/hr during this infusion time. [facility] 3: Reproducti ve risk Hazardous Drug -- Refer to safe handling procedure PPE Matrix, Infusion Type: Non-titrat e Rossi desir Lostine Epic measles, mumps and rubella (MMR) vaccine 0.5 mL measles, mumps and rubella (MMR) vaccine 0.5 mL 08-14 19:02: 51 Yes .5mL 0.5 mL, Subcutaneo us, Oncall, Starting on Mon08/14/24 at 1902, For 1 dose, Prior to discharge, IF patient rubella non-immune , developmental training counselor before vaccinatio n. Record lot number and manufactur er name on medication record. Vaccine is a vial of powder. Reconstitu te with the available diluent for this vaccine. Barcode scan vaccine vial for Vaccine Record Rossi Trujillo miSOPROStol (Cytotec) tablet 50 mcg 08-14 12:15: 00 Yes 50ug Q4H 50 mcg, Oral, Every 4 hours, First dose on Mon08/14/24 at 1215, Up to a maximum of 400 micrograms . Do not administer further misoprosto l after the patient enters active phase of labor, or if there is uterine hyperstimu lation, tachysysto le or non-reassu ring heart tracing. [facility] Group 3: Reproducti ve risk Hazardous Drug -- Refer to safe handling procedure PPE Matrix Rossi Trujillo lactated Ringer's infusion lactated Ringer's infusion 08-14 08:45: 00 08-14 21:05 :08 No 125mL/h 125 mL/hr, Intravenou s, Continuous , Starting on Mon08/14/24 at 0845, Delivery, Decrease rate to 30 ml/hr while infusing the post delivery 20 Units of Oxytocin Rossi desir Evangelistarob Trujillo oxytocin (Pitocin) 30 units in sodium chloride 0.9 % 500 mL 30 Units oxytocin (Pitocin) 30 units in sodium chloride 0.9 % 500 mL 30 Units 08-14 08:41: 58 08-14 21:05 :08 No 30U 30 Units, Intravenou s, Oncall, Starting on Mon08/14/24 at 0841, For 1 day, Delivery, For post HEMORRHAGE ONLY per physician direction -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 Each applicator has ~5g of medication . [facility] metroNIDAZO LE (Flagyl) 500 MG tablet 2025-0 4-28 00:00: 00 07-30 04:59 :00 No [id number] 500mg Q.5D Take 1 tablet (500 mg total) by mouth in the morning and 1 tablet (500 mg total) in the evening. Do all this for 7 days. [facility] hydrocortis one 1 % ointment 07-16 00:00: 00 Yes [id number] Q.5D Apply topically 2 (two) times a day. [facility] ursodiol (Actigall) 250 MG tablet ursodiol (Actigall) 250 MG tablet 07-15 00:00: 00 08-16 00:00 :00 No 250mg Q.5D Take 250 mg by mouth in the morning and 250 mg in the evening. Rossi Naidu [facility] hydrocortis one 1 % ointment 07-10 00:00: 00 07-16 00:00 :00 No [id number] Q.5D Apply topically 2 (two) times a day. [facility] PNV 67-iron ps-folate no.1-dha (VITAFOL ULTRA) 29 mg iron- 1 mg-200 mg Cap 2023-03 00:00: 00 Yes [id number] 1{capsu le} Take 1 capsule by mouth in the morning. [facility] proMETHazin e 25 mg tablet 2023-03 00:00: 00 Yes [id number] 25mg Take 1 tablet by mouth every 4 (four) hours as needed for Nausea and Vomiting (N/V). [facility] Prenat-Fe Poly-Methfo l-FA-DHA (Vitafol Ultra) 29-0.6-0.4- 200 MG capsule 2023-03 00:00: 00 Yes 1{capsu le} Take 1 capsule by mouth every morning. [facility] Ferrous Sulfate 27 MG oral Tablet 2022-03 15:30: 10 Yes [id number] Take by mouth. Kristen desir Sertraline HCl 50 MG oral Tablet Sertraline HCl 50 MG oral Tablet 12-14 00:00: 00 11-07 00:00 :00 No [id number] 50mg QD Take 1 tablet (50 mg total) by mouth daily. Kristen desir Ferrous Sulfate (IRON PO) 05-16 10:39: 16 Yes Take by mouth. [facility] medroxyPROG ESTERone (Provera) 5 MG tablet 05-16 00:00: 00 06-16 04:59 :00 No [id number] 100 5mg QD Take 1 tablet (5 mg total) by mouth 1 (one) time each day. [facility] etonogestre l-eluting contracepti ve implant 12-06 16:00: 00 12-06 16:04 :00 No [id number] 1{each} [facility] medroxyPROG ESTERone (Depo-Prove ra) injection syringe 150 mg 11-22 16:00: 00 Yes [id number] 150mg [facility] Vit-Fe Fumarate-FA ( VITAMIN PO) 11-22 10:41: 15 Yes Take by mouth. [facility] ibuprofen 600 mg oral tablet 10-22 14:04: 00 Yes 600 mg = 1 tab, PO, Q6H, PRN Pain, take with food, X 30 day, # 20 tab, 0 Refill(s), Pharmacy: [facility], 165.1, cm, 10/19/21 21:55:00 CDT, Height, 75, kg, 10/19/21 21:55:00 CDT, Weight Rossi Naidu Multivitami ns oral tablet 10-22 14:00: 00 No 1 tab, Route: PO, Drug Form: TAB, Dosing Weight 75, kg, Daily, Start date: 10/22/21 9:00:00 CDT, Duration: 30 day, Stop date: 11/20/21 9:00:00 CDT, 0 Rossi Naidu M-M-R II subcutaneou s injection 10-21 15:00: 00 No Notes: (Same as: M-M-R II) (measles-m umps-rubel la virus vaccine 0.5 ml INJ VL) WASTE: F/P - Red; E -Red GIVE PRIOR TO DISCHARGE Rossi Naidu Saline Flush 0.9% 10-21 14:56: 00 No Notes: (Same as: BD Posiflush) Rossi Naidu naloxone 10-21 14:56: 00 No Notes: Same as Narcan Rossi Naidu Lactated Ringers IV 1,000 mL 10-21 14:56: 00 No 1,000 mL, Rate: 125 ml/hr, Infuse over: 8 hr, Route: IV, Dosing Weight 75 kg, Total Volume: 1,000, see special instructio n for rate while completing infusion from recovery for the 20 Units of Oxytocin., Start date: 10/21/21 9:56:00 CDT, Duration: 30 d... Rossi Naidu bisacodyl 10-21 14:56: 00 No Notes: (Same As: Dulcolax, Correctol) (Do Not Crush) "Do Not Crush" Rossi Naidu lanolin topical 10-21 14:56: 00 No Notes: (Same as:Lanolin ) Rossi Naidu oxytocin 30 units in NS 500 mL (Titrate) IV 30 unit 10-21 14:56: 00 No Notes: Hazardous Drug Group 3:Reproduc tive risk Hazardous Drug -- Refer to safe handling procedure PPE Matrix Rossi Naidu promethazin e 10-21 14:56: 00 No Notes: Do not give IV push. (Same as: Phenergan) Rossi Naidu metoclopram shu 10-21 14:56: 00 No Notes: (Same as: Reglan) Rossi Naidu nalbuphine 10-21 14:56: 00 No Notes: (Same As: Nubain) Rossi Naidu Ropivacaine 0.2% + fentaNYL 2 mcg/ml Epidural CADD 100 mL 10-21 09:59: 00 No Notes: Same as Sublimaze- Naropin Rossi Naidu Ropivacaine 0.2% Epidural CADD 200 mL 10-21 09:59: 00 No Route: EPIDURAL, Continuous Rate: 8, ml/hr, Infusion site: Lumbar, [employer] [employer] dose 3 mL, [employer] dose lockout: 15 minutes, 1 Hour limit: 20 mL, 200, mL, Start date: 10/21/21 4:59:00 CDT, Duration: 30, day, Total volume: 200, mL, Weight 75, kg, Stop date: ... Rossi Naidu oxytocin 30 units in NS 500 mL (Titrate) IV 30 unit 10-21 06:21: 00 No Notes: Hazardous Drug Group 3:Reproduc tive risk Hazardous Drug -- Refer to safe handling procedure PPE Matrix Rossi Naidu Cervidil 10 mg vaginal insert 10-20 17:19: 00 No Notes: (Same as: Cervidil) Hazardous Drug Group 3:Reproduc tive risk Hazardous Drug -- Refer to safe handling procedure PPE Matrix Rossi Naidu Remove - dinoproston e (Cervidil) insert 10-20 15:00: 00 No Notes: Vaginal insert: to be removed 1 hour prior to oxytocin administra tion or 12 hours after insertion. Hazardous Drug Group 3:Reproduc tive risk Hazardous Drug -- Refer to safe handling procedure PPE Matrix Rossi Naidu penicillin G potassium 10-20 13:00: 00 No 2,500,000 unit, 50 mL, Route: IVPB, Drug form: INJ, [id number], Dosing Weight 75, kg, Start date: 10/20/21 8:00:00 CDT, Duration: 30 day, Stop date: 11/19/21 4:00:00 CDT, Infuse over: 30 minutes, 0 Rossi karlee Naidu penicillin G potassium 5,000,000 units injection + Sodium Chloride 0.9% IV 100 mL 10-20 09:00: 00 No Notes: (Same as: Pfizerpen) MEDICATION WASTE Product Size: 5,000,000 unit Product Wasted: ___ unit Rossi Naidu Cervidil 10-20 03:27: 00 No Notes: (Same as: Cervidil) [facility] Group 3:Reproduc tive risk Hazardous Drug -- Refer to safe handling procedure PPE Matrix Rossi Penaann acetaminoph en 10-20 03:00: 00 No Notes: Max acetaminop hen 4000 mg/day (4 gm/day). (Same as: Tylenol Extra Strength) Karissayifan karlee Naidu ibuprofen 10-20 03:00: 00 No Notes: (Same as: Motrin) "Do Not Crush" Take with food. Rossi Naidu misoprostol 10-20 03:00: 00 No Notes: (Same as:Cytotec ) Hazardous Drug Group 3:Reproduc tive risk Hazardous Drug -- Refer to safe handling procedure PPE Matrix Take with food Rossi Naidu methylergon ovine 10-20 03:00: 00 No Notes: (Same as:Metherg ine) Hazardous Drug Group 3:Reproduc tive risk Hazardous Drug -- Refer to safe handling procedure PPE Matrix Rossi Naidu atropine-di phenoxylate 0.025 mg-2.5 mg oral tablet 10-20 03:00: 00 No Notes: (Same As: Lomotil) MAX Adult dose = 8 tabs/day Rossi Naidu carboprost 10-20 03:00: 00 No Notes: (Same As: Hemabate) Rossi Naidu tranexamic acid + Sodium Chloride 0.9% IV 100 mL 10-20 03:00: 00 No Notes: (Same As: Cyklokapro n) Rossi Naidu Lactated Ringers (Bolus) IV 10-20 03:00: 00 No 1,000 mL, 1,000 ml/hr, Infuse Over: 1 hr, Route: IV, 1,000, Drug form: INJ, ONCALL, kg, Start date: 10/19/21 22:00:00 CDT, Duration: 1 doses or times, For OB hemorrhage per physician direction, 0 Rossi Naidu oxytocin 10-20 03:00: 00 No Notes: (Same as: Pitocin) Haz[facility]ous Drug Group 3:Reproduc tive risk Hazardous Drug -- Refer to safe handling procedure PPE Matrix Rossi Naidu Lactated Ringers Injection IV 1,000 mL 10-20 02:51: 00 No 1,000 mL, Rate: 125 ml/hr, Infuse over: 8 hr, Route: IV, Total Volume: 1,000, see special instructio ns when infusing 20 Units of Oxytocin., Start date: 10/19/21 21:51:00 CDT, Duration: 30 day, Stop date: 11/18/21 21:50:00 CDT, 0 Rossi Naidu oxytocin 30 units in NS 500 mL (Titrate) IV 30 unit 10-20 02:51: 00 No Notes: Hazardous Drug Group 3:Reproduc tive risk Hazardous Drug -- Refer to safe handling procedure PPE Matrix Rossi Naidu ondansetron 10-20 02:51: 00 No Notes: (Same as: Zofran) MEDICATION WASTE Product Size: 4 mg Product Wasted: ___ mg Rossi Naidu Dermoplast Pain Relieving 20%-0.5% topical spray 10-20 02:51: 00 No Notes: (Same As: Dermoplast ) WASTE: Aerosol - Return to Pharmacy FOR EXTERNAL USE ONLY Rossi Naidu oxyCODONE immediate release 10-20 02:51: 00 No Notes: (Same as: Roxicodone ) Rossi Naidu oxytocin 30 units in NS 500 mL IV 19.98 unit 10-20 02:51: 00 No Notes: Hazardous Drug Group 3:Reproduc tive risk Hazardous Drug -- Refer to safe handling procedure PPE Matrix Rossi Naidu butorphanol 10-20 02:51: 00 No Notes: (Same As: Stadol) Rossi Naidu lidocaine 1% 10-20 02:51: 00 No Notes: (Same as: Xylocaine) Rossi Naidu terbutaline 10-20 02:51: 00 No Notes: DO NOT USE IN BODY HANGER AREA (Same As: Brethine) Rossi Naidu Vit-FePoly- FA-DHA (Select-OB+ DHA) 29-1 & 250 MG misc 2- 00:00: 00 Yes 1{packe t} QD Take 1 packet by mouth 1 (one) time each day. [facility] Vit-FePoly- FA-DHA (Select-OB+ DHA) 29-1 & 250 MG misc 2- 00:00: 00 Yes 1{packe t} QD Take 1 packet by mouth 1 (one) time each day. [facility] vit 33-iron-fol ic-dha (SELECT-OB + DHA) 29 mg iron-1 mg -250 mg combo pack 2- 00:00: 00 01-23 00:00 :00 No [id number] 1{packe t} Take 1 Packet by mouth daily. [facility] ciprofloxac in 500 mg tablet Take 1 tablet every 12 hours by oral route as directed for 3 days. for infection. separate at least 4 hours from ondansetron ciprofloxac in 500 mg tablet Take 1 tablet every 12 hours by oral route as directed for 3 days. for infection. separate at least 4 hours from ondansetron No 1 Q12H ciprofloxa miriam 500 mg tablet Take 1 tablet every 12 hours by oral route as directed for 3 days. for infection. separate at least 4 hours from ondansetro n [facility] ondansetron 8 mg disintegrat ing tablet Place 1 tablet twice a day by translingua l route as needed for 7 days. for nausea and vomiting. separate at least 4 hours from Ciprofloxac in ondansetron 8 mg disintegrat ing tablet Place 1 tablet twice a day by translingua l route as needed for 7 days. for nausea and vomiting. separate at least 4 hours from Ciprofloxac in No 1 BID ondansetro n 8 mg disintegra ting tablet Place 1 tablet twice a day by translingu al route as needed for 7 days. for nausea and vomiting. separate at least 4 hours from Ciprofloxa miriam [place] Tubersol 5 tub. unit/0.1 mL intradermal injection solution Inject 0.1 mL by intradermal route. Tubersol 5 tub. unit/0.1 mL intradermal injection solution Inject 0.1 mL by intradermal route. No .1mL Tubersol 5 tub. unit/0.1 mL intraderma l injection solution Inject 0.1 mL by intraderma l route. [facility] ciprofloxac in 500 mg tablet Take 1 tablet every 12 hours by oral route as directed for 3 days. for infection. separate at least 4 hours from ondansetron ciprofloxac in 500 mg tablet Take 1 tablet every 12 hours by oral route as directed for 3 days. for infection. separate at least 4 hours from ondansetron No 1 Q12H ciprofloxa miriam 500 mg tablet Take 1 tablet every 12 hours by oral route as directed for 3 days. for infection. separate at least 4 hours from [facility]ro n [facility] ondansetron 8 mg disintegrat ing tablet Place 1 tablet twice a day by translingua l route as needed for 7 days. for nausea and vomiting. separate at least 4 hours from Ciprofloxac in ondansetron 8 mg disintegrat ing tablet Place 1 tablet twice a day by translingua l route as needed for 7 days. for nausea and vomiting. separate at least 4 hours from Ciprofloxac in No 1 BID ondansetro n 8 mg disintegra ting tablet Place 1 tablet twice a day by translingu al route as needed for 7 days. for nausea and vomiting. separate at least 4 hours from Ciprofloxa miriam [facility] Tubersol 5 tub. unit/0.1 mL intradermal injection solution Inject 0.1 mL by intradermal route. Tubersol 5 tub. unit/0.1 mL intradermal injection solution Inject 0.1 mL by intradermal route. No .1mL Tubersol 5 tub. unit/0.1 mL intraderma l injection solution Inject 0.1 mL by intraderma l route. [facility] clotrimazol e-betametha sone 1 %-0.05 % topical cream APPLY TO THE AFFECTED AND SURROUNDING AREAS OF SKIN BY TOPICAL ROUTE 2 TIMES PER DAY IN THE MORNING AND EVENING FOR 2 WEEKS clotrimazol e-betametha sone 1 %-0.05 % topical cream APPLY TO THE AFFECTED AND SURROUNDING AREAS OF SKIN BY TOPICAL ROUTE 2 TIMES PER DAY IN THE MORNING AND EVENING FOR 2 WEEKS No clotrimazo le-betamet hasone 1 %-0.05 % topical cream APPLY TO THE AFFECTED AND SURROUNDIN G AREAS OF SKIN BY TOPICAL ROUTE 2 TIMES PER DAY IN THE MORNING AND EVENING FOR 2 WEEKS [facility] Immunizations Ordered Immunization Name Filled Immunization Name Date Status Comments Source Tdap- (Boostrix, Adacel) Tdap- (Boostrix, Adacel) 2024-06-13 00:00:00 Completed Kristen Serimmaold - External Tdap 2024-06-13 00:00:00 [facility] 2024-06-13 00:00:00 Completed [facility] 2024-06-13 00:00:00 Completed [facility] 2024-06-13 00:00:00 Completed [facility] 2024-06-13 00:00:00 Completed [facility] T[facility] 2024-06-13 00:00:00 Completed [facility] 2024-06-13 00:00:00 Completed [facility] 2024-06-13 00:00:00 Completed [facility] Meningococcal Polysaccharide (Groups A, C, Y And W-135 TT) conjugate vaccine 2023-01-28 00:00:00 Completed MENINGOCOCCAL VACCINE-CONJUGATE(MEN QUADFI) MENINGOCOCCAL VACCINE-CONJUGATE(M ENQUADFI) 2023-01-28 00:00:00 Completed Kristen Prakashybold - External COVID-19, mRNA, LNP-S, PF, 30 mcg/0.3 mL dose (Proginet-Alma Johns) COVID-19, mRNA, LNP-S, PF, 30 mcg/0.3 mL dose (Proginet-Alma Johns) 2022-05-10 00:00:[address] [facility] COVID-19, mRNA, LNP-S, PF, 30 mcg/0.3 mL dose (Showbieech) COVID-19, mRNA, LNP-S, PF, 30 mcg/0.3 mL dose (Clear Advantage Collar) 2022-05-10 00:00:[address] [facility] COVID-19, mRNA, LNP-S, PF, 30 mcg/0.3 mL dose (Sol[employer]ice MedicalNTech) COVID-19, mRNA, LNP-S, PF, 30 mcg/0.3 mL dose (Solstice MedicalNTJIT Solaire) 2022-05-10 00:00:00 Completed [facility] Covid-19 Vaccine (Proginet), Mrna-lnp, Torres Protein, Pf, 30mcg/0.3ml,IM Covid-19 Vaccine (Pfizer), Mrna-lnp, Torres Protein, Pf, 30mcg/0.3ml,IM 2022-05-10 00:00:00 Completed Kristen Luciaold - External Tdap 2021-08-27 00:00:00 Completed [facility] Tdap 2021-08-27 00:00:00 Completed [facility] Tdap 2021-08-27 00:00:00 Completed [facility] Tdap 2021-08-27 00:00:00 Completed [facility] Tdap 2021-08-27 00:00:00 Completed [facility] Tdap 2021-08-27 00:00:00 Completed [facility] Tdap 2021-08-27 00:00:00 Completed [facility] Tdap 2021-08-27 00:00:00 Completed [facility] Tdap 2021-08-27 00:00:00 Completed [facility] Tdap 2021-08-27 00:00:00 Completed [facility] Tdap 2021-08-27 00:00:00 Completed [facility] Tdap 2021-08-27 00:00:00 Completed [facility] Tdap 2021-08-27 00:00:00 Completed [facility] Tdap 2021-08-27 00:00:00 Completed [facility] TDAP 2021-08-27 00:00:00 Completed Tdap- (Boostrix, Adacel) Tdap- (Boostrix, Adacel) 2021-08-27 00:00:00 Completed Kristen Luciaold - External Tdap 2021-08-27 00:00:00 Completed [facility] Tdap 2021-08-27 00:00:00 Completed [facility] Tdap 2021-08-27 00:00:00 Completed [facility] Tdap 2021-08-27 00:00:00 Completed [facility] Tdap 2021-08-27 00:00:00 Completed [facility] Tdap 2021-08-27 00:00:00 Completed [facility] Tdap 2021-08-27 00:00:00 Completed [facility] Tdap Tdap 2021-08-25 00:00:00 Completed [facility] Meningococcal,NOS 2021-07-19 00:00:00 Completed Meningococcal Acwy, Unspecified Meningococcal Acwy, Unspecified 2021-07-19 00:00:00 Completed Kristen Seybold - External Meningococcal Oligosaccharide (groups A, C, Y and W-135) conjugate vaccine (MCV4O) 2018-10-17 00:00:00 Completed Meningococcal Vaccine- Conjugate(Menveo) Meningococcal Vaccine- Conjugate(Menveo) 2018-10-17 00:00:00 Completed Kristen Luciaold - External HPV9 2015-11-25 00:00:00 Completed HPV 9 (Human Papillomavirus) HPV 9 (Human Papillomavirus) 2015-11-25 00:00:00 Completed Kristen Luciaold - External Meningococcal Vaccine- Conjugate(Menactra) Meningococcal Vaccine- Conjugate(Menactra) 2014-09-19 00:00:00 Completed Kristen Prakashybold - External Meningococcal Polysaccharide (groups A, C, Y and W-135) conjugate vaccine (MCV4P) 2014-09-19 00:00:00 Completed HPV 4 (Human Papillomavirus) HPV 4 (Human Papillomavirus) 2014-08-01 00:00:00 Completed Kristen Combs - External Tdap- (Boostrix, Adacel) Tdap- (Boostrix, Adacel) 2014-08-01 00:00:00 Completed Kristen Luciaold - External HPV 2014-08-01 00:00:00 Completed TDAP 2014-08-01 00:00:00 Completed HEPATITIS A- PEDI/ADOL HEPATITIS A- PEDI/ADOL 2007-11-22 00:00:00 Completed Kristen Combs - External MMR- Measles, Mumps, Rubella MMR- Measles, Mumps, Rubella 2007-11-22 00:00:00 Completed Kristen Hill External IPV- Inactivated Polio Vaccine IPV- Inactivated Polio Vaccine 2007-11-22 00:00:00 Completed Kristen Luciaold - External Varicella Vaccine Varicella Vaccine 2007-11-22 00:00:00 Completed Kristen Combs - External DTaP Unspecified DTaP Unspecified 2007-11-22 00:00:00 Completed Kristen Combs - External DTaP, Unspecified Formulation 2007-11-22 00:00:00 Completed HEPATITIS A 2007-11-22 00:00:00 Completed IPV 2007-11-22 00:00:00 Completed MMR 2007-11-22 00:00:00 Completed Varicella (varivax)(chicken pox) 2007-11-22 00:00:00 Completed HEPATITIS A- PEDI/ADOL HEPATITIS A- PEDI/ADOL 2005-12-30 00:00:00 Completed Kristen Luciaold - External HEPATITIS A 2005-12-30 00:00:00 Completed HEPATITIS A- PEDI/ADOL HEPATITIS A- PEDI/ADOL 2004-12-13 00:00:00 Completed Kristen Luciaold - External HEPATITIS A 2004-12-13 00:00:00 Completed HIB- Haemophilus Influenzae Type B HIB- Haemophilus Influenzae Type B 2004-05-06 00:00:00 Completed Kristen Luciaold - External MMR- Measles, Mumps, Rubella MMR- Measles, Mumps, Rubella 2004-05-06 00:00:00 Completed Kristen Combs - External Pneumococcal Vaccine, Conjugate 7 Pneumococcal Vaccine, Conjugate 7 2004-05-06 00:00:00 Completed Kristen Combs - External IPV- Inactivated Polio Vaccine IPV- Inactivated Polio Vaccine 2004-05-06 00:00:00 Completed Kristen Combs - External Varicella Vaccine Varicella Vaccine 2004-05-06 00:00:00 Completed Kristen Luciaold - External DTaP Unspecified DTaP Unspecified 2004-05-06 00:00:00 Completed Kristen Luciaold - External DTaP, Unspecified Formulation 2004-05-06 00:00:00 Completed Heamophilus Influenza B 2004-05-06 00:00:00 Completed IPV 2004-05-06 00:00:00 Completed MMR 2004-05-06 00:00:00 Completed Pneumococcal 7 Conjugate, PCV7 (Prevnar7) 2004-05-06 00:00:00 Completed Varicella (varivax)(chicken pox) 2004-05-06 00:00:00 Completed Hepatitis B, Adolescent Or Pediatric Hepatitis B, Adolescent Or Pediatric 2003-04-17 00:00:00 Completed Kristen Luciaold - External HIB- Haemophilus Influenzae Type B HIB- Haemophilus Influenzae Type B 2003-04-17 00:00:00 Completed Kristen Luciaold - External Pneumococcal Vaccine, Conjugate 7 Pneumococcal Vaccine, Conjugate 7 2003-04-17 00:00:00 Completed Kristen Luciaold - External DTaP Unspecified DTaP Unspecified 2003-04-17 00:00:00 Completed Kristen Luciaold - External DTaP, Unspecified Formulation 2003-04-17 00:00:00 Completed Hep B, Adol or Pedi Dosage 2003-04-17 00:00:00 Completed Heamophilus Influenza B 2003-04-17 00:00:00 Completed Pneumococcal 7 Conjugate, PCV7 (Prevnar7) 2003-04-17 00:00:00 Completed HIB- Haemophilus Influenzae Type B HIB- Haemophilus Influenzae Type B 2003-03-03 00:00:00 Completed Kristen Seybold - External Pneumococcal Vaccine, Conjugate 7 Pneumococcal Vaccine, Conjugate 7 2003-03-03 00:00:00 Completed Kristen Seybold - External IPV- Inactivated Polio Vaccine IPV- Inactivated Polio Vaccine 2003-03-03 00:00:00 Completed Kristen Seybold - External DTaP Unspecified DTaP Unspecified 2003-03-03 00:00:00 Completed Kristen Seybold - External DTaP, Unspecified Formulation 2003-03-03 00:00:00 Completed Heamophilus Influenza B 2003-03-03 00:00:00 Completed IPV 2003-03-03 00:00:00 Completed Pneumococcal 7 Conjugate, PCV7 (Prevnar7) 2003-03-03 00:00:00 Completed Hepatitis B, Adolescent Or Pediatric Hepatitis B, Adolescent Or Pediatric 2002 00:00:00 Completed Kristen Seybold - External HIB- Haemophilus Influenzae Type B HIB- Haemophilus Influenzae Type B 2002 00:00:00 Completed Kristen Seybold - External Pneumococcal Vaccine, Conjugate 7 Pneumococcal Vaccine, Conjugate 7 2002 00:00:00 Completed Kristen Seybold - External IPV- Inactivated Polio Vaccine IPV- Inactivated Polio Vaccine 2002 00:00:00 Completed Kristen Seybold - External DTaP Unspecified DTaP Unspecified 2002 00:00:00 Completed Kristen Seybold - External DTaP, Unspecified Formulation 2002 00:00:00 Completed Hep B, Adol or Pedi Dosage 2002 00:00:00 Completed Heamophilus Influenza B 2002 00:00:00 Completed IPV 2002 00:00:00 Completed Pneumococcal 7 Conjugate, PCV7 (Prevnar7) 2002 00:00:00 Completed Hepatitis B, Adolescent Or Pediatric Hepatitis B, Adolescent Or Pediatric 2002 00:00:00 Completed Kristen Seybold - External Hep B, Adol or Pedi Dosage 2002 00:00:00 Completed DTaP Unspecified Unknown Completed Duong Combs - External HEPATITIS A- PEDI/ADOL Unknown Completed Kristen Combs - External Hepatitis B, Adolescent Or Pediatric Unknown Completed Kristen Combs - External HIB- Haemophilus Influenzae Type B Unknown Completed Kristen mark - External HPV 4 (Human Papillomavirus) Unknown Completed Kristen patel - External HPV 9 (Human Papillomavirus) Unknown Completed Kristen patel - External Meningococcal Vaccine- Conjugate(Menveo) Unknown Completed Kristen mark - External Meningococcal Vaccine- Conjugate(Menactra) Unknown Completed Kristen burchboamanda - External MENINGOCOCCAL VACCINE-CONJUGATE(MEN QUADFI) Unknown Completed Kristen Combs - External Meningococcal Acwy, Unspecified Unknown Completed Kristen Combs - External MMR- Measles, Mumps, Rubella Unknown Completed Kristen Combs - External Pneumococcal Vaccine, Conjugate 7 Unknown Completed Kristen Combs - External IPV- Inactivated Polio Vaccine Unknown Completed Kristen Hill External Tdap- (Boostrix, Adacel) Unknown Completed Kristen Combs - External Tdap- (Boostrix, Adacel) Unknown Completed Kristen Combs - External Varicella Vaccine Unknown Completed David Combs - External Vital Signs Vital Name Observation Time Observation Value Comments S jenaece Systolic blood pressure 2024-11-07 09:25:00 109 mm[Hg] Kristen Marrufo ld - External Diastolic blood pressure 2024-11-07 09:25:00 76 mm[Hg] Kristen Marrufo ld - External Heart rate 2024-11-07 09:25:00 73 /min Jay beard oni - External Respiratory rate 2024-11-07 09:25:00 16 /min Kristen Combs - External Body height 2024-11-07 09:25:00 165.1 cm Tracy Combs - External Body weight 2024-11-07 09:25:00 68.947 kg Tracy burch Seybold - External BMI 2024-11-07 09:25:00 25.29 kg/m2 Tracy Combs - External Oxygen saturation in Arterial blood by Pulse oximetry 2024-11-07 09:25:00 100 /min Kristen Marrufo ld - External Heart rate 2024-08-26 17:00:00 44 /min [facility] [place] [facility] Oxygen saturation in Arterial blood by Pulse oximetry 2024-08-26 17:00:00 97 /min [facility] Systolic blood pressure 2024-08-26 16:55:00 123 mm[Hg] [facility] Diastolic blood pressure 2024-08-26 16:55:00 84 mm[Hg] [facility] Body temperature 2024-08-26 16:09:[address] [facility] Respiratory rate 2024-08-26 16:09:00 18 /min [facility] Body height 2024-08-26 16:09:00 165.1 cm [facility] Body weight 2024-08-26 16:09:00 69.9 kg [facility] BMI 2024-08-26 16:09:00 25.64 kg/m2 [facility] Heart rate 2024-08-26 17:00:00 44 /min [facility] Oxygen saturation in Arterial blood by Pulse oximetry 2024-08-26 17:00:00 97 /min [facility] Systolic blood pressure 2024-08-26 16:55:00 123 mm[Hg] [facility] Diastolic blood pressure 2024-08-26 16:55:00 84 mm[Hg] [facility] Body temperature 2024-08-26 16:09:[address] [facility] Respiratory rate 2024-08-26 16:09:00 18 /min [facility] Body height 2024-08-26 16:09:00 165.1 cm [facility] Body weight 2024-08-26 16:09:00 69.9 kg [facility] BMI 2024-08-26 16:09:00 25.64 kg/m2 [facility] Systolic blood pressure 2024-08-26 19:59:00 135 mm[Hg] [facility] Diastolic blood pressure 2024-08-26 19:59:00 92 mm[Hg] [facility] Heart rate 2024-08-26 19:59:00 56 /min [facility] Body height 2024-08-26 19:59:00 [facility] 2024-08-26 19:59:00 69.854 [facility] BMI 2024-08-26 19:59:00 25.63 kg/m2 [facility] Heart rate 2024-08-16 07:58:28 62 /min [facility] Respiratory rate 2024-08-16 07:58:28 18 /min [facility] Oxygen saturation in Arterial blood by Pulse oximetry 2024-08-16 07:58:28 95 /min [facility] Systolic blood pressure 2024-08-16 07:58:23 137 mm[Hg] [facility] Diastolic blood pressure 2024-08-16 07:58:23 82 mm[Hg] [facility] Body temperature 2024-08-16 07:58:10 36.61 [facility] Body height 2024-08-14 08:55:00 165.1 cm Tanner rial [facility] Body weight 2024-08-14 08:55:00 74.9 kg [facility]anner [facility] BMI 2024-08-14 08:55:00 27.48 kg/m2 [facility]anner [facility] [place] [facility] Heart rate 2024-08-16 07:58:28 62 /min [facility] Respiratory rate 2024-08-16 07:58:28 18 /min [facility] Oxygen saturation in Arterial blood by Pulse oximetry 2024-08-16 07:58:28 95 /min [facility] Systolic blood pressure 2024-08-16 07:58:23 137 mm[Hg] [facility] Diastolic blood pressure 2024-08-16 07:58:23 82 mm[Hg] [facility] Body temperature 2024-08-16 07:58:10 36.61 [facility] Body height 2024-08-14 08:55:00 165.1 cm Tanner rial [facility] Body weight 2024-08-14 08:55:00 74.9 kg Tanner rial [facility] BMI 2024-08-14 08:55:00 27.48 kg/m2 Tanner rial [facility] Systolic blood pressure 2024-08-02 19:02:00 109 mm[Hg] [facility] Diastolic blood pressure 2024-08-02 19:02:00 73 mm[Hg] [facility] Heart rate 2024-08-02 19:02:00 89 /min [facility] Body temperature 2024-08-02 19:02:00 36.72 [facility] Body weight 2024-08-02 19:02:00 [facility]256 [facility] BMI 2024-08-02 19:02:00 29.53 [facility]m2 [facility] Systolic blood pressure 2024-07-25 20:28:00 110 mm[Hg] [facility] Diastolic blood pressure 2024-07-25 20:28:00 73 mm[Hg] [facility] Heart rate 2024-07-25 20:28:00 69 /min [facility] Body temperature 2024-07-25 20:28:00 36.67 [facility] Body weight 2024-07-25 20:28:00 73.029 [facility] BMI 2024-07-25 20:28:00 29.44 kg/m2 [facility] Systolic blood pressure 2024-07-10 19:49:00 109 mm[Hg] [facility] Diastolic blood pressure 2024-07-10 19:49:00 72 mm[Hg] [facility] Heart rate 2024-07-10 19:49:00 79 /min [facility] Body temperature 2024-07-10 19:49:00 36.78 [facility] Body weight 2024-07-10 19:49:00 [facility].94 [facility] BMI 2024-07-10 19:49:00 29.00 kg/m2 [facility] Systolic blood pressure 2024-06-13 20:35:00 105 mm[Hg] [facility] [facility] Diastolic blood pressure 2024-06-13 20:35:00 70 mm[Hg] [facility] Heart rate 2024-06-13 20:35:00 77 /min [facility] Body temperature 2024-06-13 20:35:00 36.72 Constance [facility] Body weight 2024-06-13 20:35:00 70.308 [facility] BMI 2024-06-13 20:35:00 28.34 [facility]m2 [facility] Systolic blood pressure 2024-05-16 20:24:00 100 mm[Hg] [facility] Diastolic blood pressure 2024-05-16 20:24:00 67 mm[Hg] [facility] Heart rate 2024-05-16 20:24:00 82 /min [facility] Body temperature 2024-05-16 20:24:00 36.61 [facility]stance [facility] Body weight 2024-05-16 20:24:00 66.225 [facility] BMI 2024-05-16 20:24:00 24.30 kg/m2 [facility] Systolic blood pressure 2024-02-20 19:05:00 101 mm[Hg] [facility] Diastolic blood pressure 2024-02-20 19:05:00 60 mm[Hg] [facility] Heart rate 2024-02-20 19:05:00 72 /min [facility] Body temperature 2024-02-20 19:05:00 37.11 Constance [facility] Respiratory rate 2024-02-20 19:05:00 18 /min [facility] Body height 2024-02-20 19:05:00 165.1 cm [facility] Body weight 2024-02-20 19:05:00 60.867 kg [facility] BMI 2024-02-20 19:05:00 22.33 kg/m2 [facility] Systolic blood pressure 2024-01-24 13:56:00 99 mm[Hg] [facility] Diastolic blood pressure 2024-01-24 13:56:00 66 mm[Hg] [facility] Heart rate 2024-01-24 13:56:00 68 /min [facility] Body temperature 2024-01-24 13:56:00 36.56 Constance [facility] Respiratory rate 2024-01-24 13:56:00 18 /min [facility] Body height 2024-01-24 13:56:00 165.1 cm [facility] Body weight 2024-01-24 13:56:00 63.702 kg [facility] BMI 2024-01-24 13:56:00 23.37 kg/m2 [facility] Systolic blood pressure 2023-02-20 21:25:00 98 mm[Hg] Kristen Marrufo ld - External Diastolic blood pressure 2023-02-20 21:25:00 58 mm[Hg] Kristen Marrufo ld - External Body temperature 2023-02-20 21:25:00 36.22 Constance Kristen Combs - External Respiratory rate 2023-02-20 21:25:00 14 /min Kristen Combs - External Body height 2023-02-20 21:25:00 165.1 cm Tracy burch Seybold - External Body weight 2023-02-20 21:25:00 64.864 kg Tracy burch Seybold - External BMI 2023-02-20 21:25:00 23.80 kg/m2 Tracy Luciaold - External Systolic blood pressure 2022-10-20 14:50:00 115 mm[Hg] [facility] Diastolic blood pressure 2022-10-20 14:50:00 84 mm[Hg] [facility] Heart rate 2022-10-20 14:50:00 76 /min [facility] Body temperature 2022-10-20 14:50:00 36.67 Constance [facility] Body weight 2022-10-20 14:50:00 65.772 [facility] BMI 2022-10-20 14:50:00 24.13 kg/m2 [facility] BP Diastolic 2022-10-19 00:00:00 73 mm[Hg] [place] [facility] Height 2022-10-19 00:00:00 65 [in_i] [place] [facility] BMI (Body Mass Index) 2022-10-19 00:00:00 24.3 kg/m2 [place] [facility] BP Systolic 2022-10-19 00:00:00 104 mm[Hg] Crowe donna [facility] Body Weight 2022-10-19 00:00:00 2341 [oz_av] Sandra tagorda [facility] BP Diastolic 2022-06-17 00:00:00 65 mm[Hg] [place] [facility] Height 2022-06-17 00:00:00 65 [in_i] [place] [facility] BMI (Body Mass Index) 2022-06-17 00:00:00 25.1 kg/m2 Ana M [facility] BP Systolic 2022-06-17 00:00:00 105 mm[Hg] Sebastien thompson [facility] Body Weight 2022-06-17 00:00:00 2416 [oz_av] Sandra salazar [facility] Systolic blood pressure 2022-05-16 16:38:00 98 mm[Hg] [facility] Diastolic blood pressure 2022-05-16 16:38:00 66 mm[Hg] [facility] Heart rate 2022-05-16 16:38:00 51 /min [facility] Body temperature 2022-05-16 16:38:00 36.67 Constance [facility] Body height 2022-05-16 16:38:00 165.1 cm [facility] Body weight 2022-05-16 16:38:00 67.132 [facility] BMI 2022-05-16 16:38:00 24.63 kg/m2 [facility] Systolic blood pressure 2022-01-06 20:59:00 113 mm[Hg] [facility] Diastolic blood pressure 2022-01-06 20:59:00 82 mm[Hg] [facility] Heart rate 2022-01-06 20:59:00 75 /min [facility] Body temperature 2022-01-06 20:59:00 36.78 Constance [facility] Body height 2022-01-06 20:59:00 165.1 cm [facility] Body weight 2022-01-06 20:59:00 69.4 kg [facility] BMI 2022-01-06 20:59:00 25.46 kg/m2 [facility] Systolic blood pressure 2021-12-06 15:19:00 106 mm[Hg] [facility] Diastolic blood pressure 2021-12-06 15:19:00 76 mm[Hg] [facility] Heart rate 2021-12-06 15:19:00 72 /min [facility] Body temperature 2021-12-06 15:19:00 36.67 Constance [facility] Body height 2021-12-06 15:19:00 165.1 cm [facility] Body weight 2021-12-06 15:19:00 66.679 [facility] BMI 2021-12-06 15:19:00 24.46 kg/m2 [facility] Systolic blood pressure 2021-11-22 15:40:00 138 mm[Hg] [facility] Diastolic blood pressure 2021-11-22 15:40:00 90 mm[Hg] [facility] Heart rate 2021-11-22 15:40:00 67 /min [facility] Body temperature 2021-11-22 15:40:00 36.83 Constance [facility] Body height 2021-11-22 15:40:00 165.1 cm [facility] Body weight 2021-11-22 15:40:00 66.679 kg [facility] BMI 2021-11-22 15:40:00 24.46 kg/m2 [facility] Systolic blood pressure 2021-10-14 19:04:00 128 mm[Hg] [facility] Diastolic blood pressure 2021-10-14 19:04:00 76 mm[Hg] [facility] Heart rate 2021-10-14 19:04:00 95 /min [facility] Body temperature 2021-10-14 19:04:00 36.78 Constance [facility] Body weight 2021-10-14 19:04:00 74.844 kg [facility] Systolic blood pressure 2021-10-08 19:22:00 125 mm[Hg] [facility] Diastolic blood pressure 2021-10-08 19:22:00 85 mm[Hg] [facility] Heart rate 2021-10-08 19:22:00 86 /min [facility] Body temperature 2021-10-08 19:22:00 36.89 Constance [facility] Body weight 2021-10-08 19:22:00 74.844 [facility] Systolic blood pressure 2021-09-30 20:50:00 107 mm[Hg] [facility] Diastolic blood pressure 2021-09-30 20:50:00 78 mm[Hg] [facility] Heart rate 2021-09-30 20:50:00 83 /min [facility] Body temperature 2021-09-30 20:50:00 36.83 Constance [facility] Body weight 2021-09-30 20:50:00 73.846 [facility] Systolic blood pressure 2021-04-27 16:13:00 105 mm[Hg] [facility] Diastolic blood pressure 2021-04-27 16:13:00 71 mm[Hg] [facility] Heart rate 2021-04-27 16:13:00 91 /min [facility] Body temperature 2021-04-27 16:13:00 36.67 Constance [facility] Respiratory rate 2021-04-27 16:13:00 16 /min [facility] Body height 2021-04-27 16:13:00 165.1 cm [facility] Body weight 2021-04-27 16:13:00 65.681 kg [facility] BMI 2021-04-27 16:13:00 24.10 kg/m2 [facility] Body mass index (BMI) [Percentile] Per age and sex 2021-04-27 16:13:00 75.64 % [facility] Height 2021-03-19 15:40:00 165.1 CM Weight 2021-03-19 [...] 165.1 CM Weight 2019-04-24 16:41:00 58.4 KG Heart Rate 2021-10-23 13:34:16 Marc Penaann Respitory Rate 2021-10-23 13:34:16 [facility] Systolic (mm Hg) 2021-10-23 13:34:08 [facility] Diastolic (mm Hg) 2021-10-23 13:34:08 [facility] Heart Rate 2021-10-23 13:34:08 [facility] Temperature Oral (F) 2021-10-23 13:33:52 98.1 F [facility] Heart Rate 2021-10-23 04:15:00 [facility] Respitory Rate 2021-10-23 04:15:00 [facility] Systolic (mm Hg) 2021-10-23 04:15:00 [facility] Diastolic (mm Hg) 2021-10-23 04:15:00 [facility] Temperature Oral (F) 2021-10-23 04:15:00 97.8 F [facility] Temperature Oral (F) 2021-10-23 00:15:00 97.5 F [facility] Respitory Rate 2021-10-23 00:15:00 [facility] Systolic (mm Hg) 2021-10-23 00:15:00 [facility] Diastolic (mm Hg) 2021-10-23 00:15:00 [facility] Height 2021-10-20 02:55:00 165.1 cm [facility] Weight 2021-10-20 02:55:00 [facility] BMI Calculated 2021-10-20 02:55:00 [facility] Height 2021-10-20 02:52:00 165.1 cm [facility] Weight 2021-10-20 02:52:00 [facility] BMI Calculated 2021-10-20 02:52:00 [facility] Procedures Procedure Date / Time Performed Performing Clinician Source CBC WITH DIFFERENTIAL 2024-11-07 00:00:00 Kristen Combs - External LIPID PANEL 2024-11-07 00:00:00 Kristen almeida - External IRON AND TIBC 2024-11-07 00:00:00 Kristen Combs - External COMP. METABOLIC PANEL (14) 2024-11-07 00:00:00 Kristen Combs - External HEMOGLOBIN (HB) A1C 2024-11-07 00:00:00 Hanh Combs - External ECG 12-LEAD 2024-08-26 16:55:[address] [facility] COMPREHENSIVE METABOLIC PANEL 2024-08-26 16:17:[address] [facility] COMPLETE BLOOD COUNT W/DIFF AND PLATELET 2024-08-26 16:17:[address] [facility] COMPLETE BLOOD COUNT 2024-08-26 16:17:[address] [facility] AUTOMATED DIFFERENTIAL 2024-08-26 16:17:[address] [facility] ECG 12 lead 2024-08-26 00:00:00 [facility] HEMOGLOBIN AND HEMATOCRIT 2024-08-15 10:31:[address] [facility] BLOOD GAS, VENOUS, CORD 2024-08-14 18:51:[address] [facility] COMPREHENSIVE METABOLIC PANEL 2024-08-14 10:29:[address] [facility] ANTIBODY SCREEN 2024-08-14 09:47:00 [facility]LO[facility] W/DIFF AND PLATELET 2024-08-14 09:47:[address] [facility] (STAT) HEPATITIS B SURFACE ANTIGEN 2024-08-14 09:47:[address] [facility] ABORH BLOOD TYPE 2024-08-14 09:47:[address] [facility] HIV 4TH GEN WITH REFLEX 2024-08-14 09:47:[address] [facility] TREPONEMAL ANTIBODY W/REFLEXES 2024-08-14 09:47:[address] [facility] COMPLETE BLOOD COUNT 2024-08-14 09:47:[address] [facility] AUTOMATED DIFFERENTIAL 2024-08-14 09:47:[address] [facility] Bile Acids Fractionated 2024-08-14 00:00:00 [facility] DME/SUPPLY JUSTIFICATION 2024-08-08 12:36:46 Doc tor Unassigned, [place] [facility] DME/SUPPLY JUSTIFICATION 2024-07-29 14:31:25 Doc feli Unassigned, [place] [facility] DME/SUPPLY JUSTIFICATION 2024-06-27 19:57:30 Doc feli Unassigned, [place] [facility] FERRITIN 2024-05-16 22:17:00 JacquelinSteve newby [facility] HEMOGLOBINOPATHY EVALUATION 2024-05-16 22:17:00 [facility] AND DIFFERENTIAL 2024-05-16 22:17:00 Rhoda Peck [facility] IRON AND TIBC 2024-05-16 22:17:00 Dylon Peckfany [facility] GLUCOSE, 1HR PP 2024-05-16 22:17:00 Steve Peck [facility] VITAMIN B12 AND FOLATE PANEL, SERUM 2024-05-16 22:17:00 Steve Peck [facility] ECG 12-LEAD 2024-04-29 12:40:00 [facility] DME/SUPPLY JUSTIFICATION 2024-03-18 19:49:05 Doc tor Unassigned, [facility] DME/SUPPLY JUSTIFICATION 2024-03-18 19:48:28 Doc feli Unassigned, [facility] NIPT - NON-INVASIVE TEST RESULTS 2024-03-06 12:54:35 Doctor Unassigned, [facility] NIPT - NON-INVASIVE TEST RESULTS 2024-02-28 13:35:19 Doctor Unassigned, [facility] POCT URINALYSIS 2024-02-20 19:15:00 Raina Alston [facility] POCT URINALYSIS W/O SPECIFIC GRAVITY 2024-01-24 13:47:00 Raina Alston [facility] POCT TEST 2024-01-24 13:46:00 Vargas Alston [facility] POCT , URINE 2021-12-06 16:03:00 [facility] POCT TEST 2021-04-27 16:15:00 Shelley Brown [facility] POCT URINALYSIS W/O SPECIFIC GRAVITY 2021-04-27 16:15:00 Yolanda Brown [facility] ECG [facility] POCT glucose meter docked device [facility] [place] Plan of Care Planned Activity Planned Date Details Comments Source Diagnostic Test Pending 2022-10-19 00:00:00 TSH, ultra-sensitive, serum [code = TSH, ultra-sensitive, serum] [facility] Diagnostic Test Pending 2022-10-19 00:00:00 CBC w/ auto diff [code = CBC w/ auto diff] [facility] Diagnostic Test Pending 2022-10-19 00:00:00 lipid panel, serum [code = lipid panel, serum] [facility] Diagnostic Test Pending 2022-10-19 00:00:00 CMP, serum or plasma [code = CMP, serum or plasma] [facility] Diagnostic Test Pending 2022-10-19 00:00:00 urinalysis complete, reflex culture [code = urinalysis complete, reflex culture] [facility] Encounters Start Date/Time End Date/Time Encounter Type Admission Type Attending [facility] Care Facility Care Department Encounter ID Source 2022-10-20 09:40:35 Outpatient [facility] [id number] [facility] 2022-10-13 13:48:50 Outpatient [facility] [id number] [facility] 2022-05-17 14:16:33 Outpatient FREDI BACON [id number] [facility] [id number] [facility] 2022-02-24 10:20:41 Outpatient [facility] [id number] [facility] 2021-10-19 21:25:00 Inpatient LOYD PERALTA [id number] [facility] 2021-06-14 16:32:55 Outpatient LOYD PERALTA [facility] [id number] [facility] 2021-05-31 16:07:37 Outpatient LOYD PERALTA [facility] [id number] [facility] 2024-11-11 00:00:00 2024-11-11 00:00:00 Outpatient PAUL FERGUS[facility] [id number] [facility] 2024-11-07 10:15:00 2024-11-07 10:15:00 Outpatient LAB90 KRISTEN MOORE [id number] [facility] 2024-11-07 09:30:00 2024-11-07 09:30:00 Outpatient PAUL FERGUSON [id number] [facility] 2024-11-07 09:30:00 2024-11-07 09:30:00 Outpatient PAUL FERGUSON [id number] Kristen Prakashnicole 2024-07-31 00:00:00 2024-09-30 22:46:29 Results Follow-Up Steve Peck [facility] 4 1.2.840.114 350.1.13.58 9.2.7.2.686 [id number] [facility] 2024-07-12 00:00:00 2024-09-11 22:46:45 Results Follow-Up Steve Peck [facility] 4 1.2.840.114 350.1.13.58 9.2.7.2.686 [id number] [facility] 2024-07-10 00:00:00 2024-09-09 22:45:14 Results Follow-Up Steve Peck [facility] 4 1.2.840.114 350.1.13.58 9.2.7.2.686 [id number] [facility] 2024-08-27 07:08:16 2024-08-26 23:59:00 Emergency MHESW MHESW [id number] [facility] 2024-08-26 16:55:00 2024-08-26 23:59:00 Hospital Encounter Resource, Sw V Ecg Gen Ecg [facility] 1.2.840.114 350.1.13.70 8.2.7.2.686 [id number] [facility] 2024-08-26 15:51:00 2024-08-26 17:05:00 Hospital Encounter Jamal [facility] 1.2.840.114 350.1.13.70 8.2.7.2.686 [id number] Rossi desir [facility] 2024-08-26 15:51:00 2024-08-26 17:05:00 Emergency [facility] [id number] [facility] 2024-08-26 13:45:00 2024-08-26 15:31:33 Visit Steve Peck [facility] 4 1..840.114 350.1.13.58 9.2.7.2.686 [id number] [facility] 2024-08-23 14:30:00 2024-08-23 14:30:00 Outpatient STEVE PECK [facility] [id number] [facility] 2024-08-14 08:27:00 2024-08-16 17:55:00 Hospital Encounter Guerrero, [facility] 1.2.840.114 350.1.13.70 8.2.7.2.686 [id number] [facility] 2024-08-14 08:27:00 2024-08-16 17:55:00 Inpatient Elective [facility] [id number] [facility] 2024-08-09 14:00:00 2024-08-09 14:00:00 Outpatient STEVE PECK [facility] [id number] [facility] 2024-08-08 00:00:00 2024-08-09 02:04:10 Orders Only Doctor Unassigned, [place] Doctor Unassigned, [place] [facility] 1.2.840.114 350.1.13.10 4.2.7.2.686 [id number] [facility] 2024-08-05 15:00:00 2024-08-05 15:00:00 Outpatient [facility] [id number] [facility] 2024-08-02 14:00:00 2024-08-02 14:23:49 Routine Steve Peck [facility] 4 1.2.840.114 350.1.13.58 9.2.7.2.686 [id number] [facility] 2024-07-29 00:00:00 2024-07-30 02:04:50 Orders Only Doctor Unassigned, [place] Doctor Unassigned, [place] [facility] 1.2.840.114 350.1.13.10 4.2.7.2.686 [id number] [facility] 2024-07-29 15:00:00 2024-07-29 15:56:18 Outpatient [facility] [id number] [facility] 2024-07-25 15:00:00 2024-07-25 15:56:05 Routine Steve Peck [facility] 4 1.2840.114 350.1.13.58 9.2.7.2.686 [id number] [facility] 2024-05-22 00:00:00 2024-07-22 22:46:29 Results Follow-Up Steve Peck [facility] 4 1.2.840.114 350.1.13.58 9.2.7.2.686 [id number] [facility] 2024-07-22 15:00:00 2024-07-22 16:09:19 Outpatient [facility] [id number] [facility] 2024-07-15 15:00:00 2024-07-15 16:21:00 Outpatient [facility] [id number] [facility] 2024-07-10 14:45:00 2024-07-10 15:52:58 Routine Steve Peck [facility] 4 1.2.840.114 350.1.13.58 9.2.7.2.686 [id number] [facility] 2024-07-08 15:00:00 2024-07-08 15:23:00 Outpatient [facility] [id number] [facility] 2024-06-27 00:00:00 2024-06-28 02:04:54 Orders Only Doctor Unassigned, [place] Doctor Unassigned, [place] [facility] ([place]) 1.2840.114 350.1.13.10 4.2.7.2.686 [id number] [facility] 2024-06-27 15:00:00 2024-06-27 15:00:00 Outpatient JULIUSDYLONSTEVE [facility] [id number] [facility] 2024-06-17 13:05:24 2024-06-17 13:05:24 Outpatient BABITAMICHELLEADILENE RFAADARIUS [facility] [id number] [facility] 2024-06-13 15:00:00 2024-06-13 16:15:08 Routine Steve Peck [facility] 4 1.840.114 350.1.13.58 9.2.7.2.686 [id number] [facility] 2024-06-06 10:45:00 2024-06-06 12:42:11 Outpatient [facility] [id number] [facility] 2024-05-16 14:00:00 2024-05-16 15:17:36 Initial Steve Peck [facility] 4 1.2840.114 350.1.13.58 9.2.7.2.686 [id number] [facility] 2024-02-28 00:00:00 2024-05-11 06:32:06 Orders Only Doctor Unassigned, [place] Doctor Unassigned, [place] [facility] ([place]) 1.2840.114 350.1.13.10 4.2.7.2.686 [id number] [facility] 2024-03-06 00:00:00 2024-05-11 06:30:02 Orders Only Doctor Unassigned, [place] Doctor Unassigned, [place] [facility] ([place]) 1.2.840.114 350.1.13.10 4.2.7.2.686 [id number] [facility] 2024-03-18 00:00:00 2024-05-11 06:25:42 Orders Only Doctor Unassigned, [place] Doctor Unassigned, [place] [facility] ([place]) 1.2.840.114 350.1.13.10 4.2.7.2.686 [id number] [facility] 2024-03-18 00:00:00 2024-05-11 06:25:37 Orders Only Doctor Unassigned, [place] Doctor Unassigned, [place] [facility] ([place]) 1.2.840.114 350.1.13.10 4.2.7.2.686 [id number] [facility] 2024-05-09 00:00:00 2024-05-09 16:02:22 Patient Outreach [place] [id number] 1.2.840.114 350.1.13.70 8.2.7.2.686 [id number] Karissayifan karlee [facility] 2024-04-29 00:00:00 2024-04-29 21:48:33 Patient Outreach [place] [id number] 1.2.840.114 350.1.13.70 8.2.7.2.686 [id number] Rossi desir [facility] 2024-04-29 12:41:00 2024-04-29 15:45:00 Emergency Emergency FLORECITAADIAGENTRY MICHELLE [facility] General Medicine [id number] [facility] 2024-06-11 07:44:21 2024-04-29 12:40:[address] [facility] [id number] [facility] 2024-04-29 12:40:00 2024-04-29 12:40:00 Hospital Encounter Emergency, Pl Ecg [facility] 1..840.114 350.1.13.70 8.2.7.2.686 [id number] Rossi desir [facility] 2024-04-02 10:30:00 2024-04-02 10:30:00 Outpatient R RAINA ALSTON [facility] [id number] [facility] 2024-03-18 10:30:00 2024-03-18 10:30:00 Outpatient R RAINA ALSTON [facility] [id number] [facility] 2024-03-15 11:12:00 2024-03-15 12:23:00 Emergency EM Jeanne Basurto [facility] [id number] [facility] 2024-03-07 08:00:00 2024-03-07 08:00:00 Outpatient P [facility] [id number] [facility] 2024-02-26 00:00:00 2024-02-26 14:55:35 Telephone Raina Alston [facility]ILD [facility] 1..840.114 350.1.13.10 4.2.7.2.686 [id number] [facility] 2024-02-20 13:15:00 2024-02-20 13:58:46 Outpatient R RAINA ALSTON [facility] [id number] [facility] 2024-02-20 13:15:00 2024-02-20 13:58:46 Routine Visit Raina Alston [facility] 1..840.114 350.1.13.10 4.2.7.2.686 [id number] [facility] 2024-01-30 00:00:00 2024-01-31 08:45:44 Telephone Raina Alston [facility] 1.2.840.114 350.1.13.10 4.2.7.2.686 [id number] [facility] 2024-01-24 07:45:00 2024-01-24 09:41:53 Initial Visit Raina Alston [facility] 1.2.840.114 350.1.13.10 4.2.7.2.686 [id number] [facility] 2024-01-24 07:15:00 2024-01-24 08:44:27 Outpatient R GREGORIAVARGAS BEJARANONDA [facility] [id number] [facility] 2024-01-23 13:00:00 2024-01-23 13:00:00 Outpatient R XIN MORRIS [facility] [id number] [facility] 2024-01-22 08:00:00 2024-01-22 08:00:00 Outpatient R XIN MORRIS [facility] [id number] [facility] 2023-04-30 00:00:00 2023-04-30 00:00:00 Outpatient [facility] [id number] Kristen Combs 2023-02-24 11:45:00 2023-02-24 11:45:00 Outpatient LAB90 KRISTEN MOORE [id number] Kristen Combs 2023-02-20 16:30:00 2023-02-20 16:30:00 Outpatient [facility] [id number] Kristen Combs 2023-02-10 13:30:00 2023-02-10 13:30:00 Outpatient [facility] [id number] Kristen Combs 2022-10-20 09:30:00 2022-10-20 10:18:48 Office Visit Carol Ann Calles 1.2.840.114 350.1.13.58 9.2.7.2.686 [id number] [facility] 2022-10-19 00:00:00 2022-10-19 00:00:00 Marce Lucas PA: [address] [address] [place] [address] , Ph. [facility] [id number] [facility] 2022-07-12 15:45:00 2022-07-12 15:45:00 Outpatient LOYD PERALTA [facility] [id number] [facility] 2022-06-17 00:00:00 2022-06-17 00:00:00 FLAKITO RogerREPAIRER CYLINDER HEADSSergioC: 14763 [address] [place] [address] , Ph. [facility] [id number] [facility] 2022-05-30 00:00:00 2022-05-30 00:00:00 Maldonado Yu DO: 12283 [address] [place] [address] , Ph. [facility] [id number] [facility] 2022-05-16 10:15:00 2022-05-16 11:03:08 Office Visit Loyd Peralta [facility] 1.2.840.114 350.1.13.58 9.2.7.2.686 [id number] 1 [id number] [facility] 2022-05-16 14:17:00 2022-05-16 00:00:00 Outpatient FREDI WALTER [id number] [facility] [id number] [facility] 2022-02-03 08:35:00 2022-02-03 10:40:00 Outpatient VAL VIRK [facility] [id number] [facility] 2022-01-20 15:15:00 2022-01-20 15:15:00 Outpatient LOYD PERALTA [facility] [id number] [facility] 2022-01-06 15:45:00 2022-01-06 16:13:52 Office Visit Loyd Peralta 1.2.840.114 350.1.13.58 9.2.7.2.686 [id number] 1 [id number] [facility] 2022-01-03 14:30:00 2022-01-03 14:30:00 Outpatient LOYD PERALTA [facility] [id number] [facility] 2021-12-09 19:45:00 2021-12-09 19:45:00 Ambulatory Pre-Reg nullFlavo r [facility] Cardiology Dougherty [id number] Rossi Naidu 2021-12-06 09:45:00 2021-12-06 11:04:41 Office Visit Loyd Peralta 1.2.840.114 350.1.13.58 9.2.7.2.686 [id number] [facility] 2021-11-25 14:30:00 2021-11-25 14:30:00 Outpatient LOYD PERALTA [facility] [id number] [facility] 2021-11-22 10:15:00 2021-11-22 14:05:14 Visit Loyd Peralta 1.2.840.114 350.1.13.58 9.2.7.2.686 [id number] 1 [id number] [facility] 2021-10-20 02:25:00 2021-10-23 20:51:00 Inpatient nullFlavo r [facility] [id number] Rossi Naidu 2021-10-19 14:00:00 2021-10-19 14:00:00 Outpatient LOYD PERALTA [facility] [id number] [facility] 2021-10-18 00:00:00 2021-10-18 00:00:00 Telephone Jairon, Layne Jairon, Layne UTP DORA 1.2.840.114 350.1.13.58 9.2.7.2.686 [id number] 1 [id number] [facility] 2021-10-14 14:00:00 2021-10-14 14:37:00 Routine Loyd Peralta UTP DORA 1.2.840.114 350.1.13.58 9.2.7.2.686 [id number] 1 [id number] [facility] 2021-10-11 00:00:00 2021-10-11 00:00:00 Telephone Layne De La O Meagen UTP DORA 1.2.840.114 350.1.13.58 9.2.7.2.686 [id number] 1 [id number] [facility] 2021-10-08 14:30:00 2021-10-08 14:50:11 Routine Loyd Peralta UTP DORA 1.2.840.114 350.1.13.58 9.2.7.2.686 [id number] 1 [id number] [facility] 2021-10-08 00:00:00 2021-10-08 00:00:00 Telephone Layne De La O Meagen UTP DORA 1.2.840.114 350.1.13.58 9.2.7.2.686 [id number] 1 [id number] [facility] 2021-09-02 16:14:00 2021-10-02 04:59:00 Recurring Mario palomino [facility] [id number] Rossi desir Lostine 2021-09-02 11:14:00 2021-10-01 23:59:00 Outpatient THAIS LOYD FB MHFB [id number] FB 2021-09-30 15:00:00 2021-09-30 16:17:31 Routine Marli Carol Ann Snow UTP DORA 1.2.840.114 350.1.13.58 9.2.7.2.686 [id number] 1 [id number] [facility] 2021-09-22 00:00:00 2021-09-22 00:00:00 Telephone Layne De La O Meagen UTP DORA 1.2.840.114 350.1.13.58 9.2.7.2.686 [id number] 1 [id number] [facility] 2021-09-17 15:45:00 2021-09-17 16:57:35 Routine JimLoyd rao UTP DORA 1.2.840.114 350.1.13.58 9.2.7.2.686 [id number] 1 [id number] [facility] 2021-09-10 14:30:00 2021-09-10 15:24:14 Routine Vesely, Carol Ann Saalirezar Snow UTP DORA 1.2.840.114 350.1.13.58 9.2.7.2.686 [id number] 1 [id number] [facility] 2021-08-27 13:30:00 2021-08-27 13:55:24 Routine Vesely, Carol Ann Saalirezar Snow UTP DORA 1.2.840.114 350.1.13.58 9.2.7.2.686 [id number] 1 [id number] [facility] 2021-08-12 16:00:00 2021-08-12 16:07:26 Routine Vesely, Carol Ann Saalirezar Snow UTP DORA 1.2.840.114 350.1.13.58 9.2.7.2.686 [id number] 1 [id number] [facility] 2021-08-04 00:00:00 2021-08-04 00:00:00 Telephone Layne De La O Meagen UTP DORA 1.2.840.114 350.1.13.58 9.2.7.2.686 [id number] 1 [id number] [facility] 2021-07-30 10:30:00 2021-07-30 10:37:56 Routine Vesely, Carol Ann Saugar Snow UTP DORA 1.2.840.114 350.1.13.58 9.2.7.2.686 [id number] 1 [id number] [facility] 2021-07-30 00:00:00 2021-07-30 00:00:00 Telephone Layne De La O Meagen UTP DORA 1.2.840.114 350.1.13.58 9.2.7.2.686 [id number] 1 [id number] [facility] 2021-07-19 10:00:00 2021-07-19 10:17:18 Routine Carol Ann Calles UTP DORA 1.2.840.114 350.1.13.58 9.2.7.2.686 [id number] 1 [id number] [facility] 2021-07-05 13:45:00 2021-07-05 13:45:00 Outpatient YOLANDA DUBON [facility] [id number] [facility] 2021-06-15 15:45:00 2021-06-15 15:45:00 Outpatient YOLANDA DUBON [facility] [id number] [facility] 2021-06-14 15:30:00 2021-06-14 16:35:03 Initial Loyd Peralta UTP DORA 1.2.840.114 350.1.13.58 9.2.7.2.686 [id number] 1 [id number] [facility] 2021-06-02 11:00:00 2021-06-02 11:00:00 Outpatient P [facility] [id number] [facility] 2021-05-25 10:15:00 2021-05-25 10:15:00 Outpatient YOLANDA DUBON [facility] [id number] [facility] 2021-05-25 10:15:00 2021-05-25 10:15:00 Outpatient YOLANDA DUBON [facility] [id number] [facility] 2021-04-28 00:00:00 2021-04-28 00:00:00 Case Management Yolanda Brown [facility]3] 1.2.840.114 350.1.13.10 4.2.7.2.686 [id number] [facility] 2021-04-28 00:00:00 2021-04-28 00:00:00 Patient Secure Yolanda Souza [facility] CHILD [facility] 1.2.840.114 350.1.13.10 4.2.7.2.686 [id number] [facility] 2021-04-27 09:45:00 2021-04-27 11:34:15 Outpatient R YOLANDA BROWN [facility] [id number] [facility] 2021-04-27 09:45:00 2021-04-27 11:34:15 Initial Visit Yolanda Brown Carlos [facility]ILD [facility] 1.2.840.114 350.1.13.10 4.2.7.2.686 [id number] [facility] 2021-04-27 00:00:00 2021-04-27 00:00:00 Patient Secure Yolanda Souza [facility] 1.2.840.114 350.1.13.10 4.2.7.2.686 [id number] [facility] 2021-03-19 15:30:00 2021-03-19 16:50:00 Outpatient JEROME ABRAMS [facility] [id number] [facility] 2021-02-27 20:11:00 2021-02-27 20:45:00 Outpatient E JEROME GOULD [facility] [id number] [facility] 2021-01-11 18:31:00 2021-01-11 19:38:00 Outpatient JEROME ABRAMS [facility] [id number] [facility] 2020-12-05 11:30:00 2020-12-05 12:30:00 Outpatient E CESAR BACON [facility] [id number] [facility] 2020-10-22 09:37:00 2020-10-22 10:35:00 Outpatient E CHANDRA BACON [facility] [id number] [facility] 2020-05-30 19:46:02 2020-05-30 19:46:02 Inpatient HCAWU H[facility] [id number] [facility] 2019-06-29 21:10:00 2019-06-29 21:57:00 Outpatient E LOGAN LOWRY [facility] [id number] [facility] 2019-05-15 15:08:00 2019-05-15 23:59:00 Outpatient MALDONADO CLAROS [facility] [id number] [facility] 2019-05-15 15:41:00 2019-05-15 16:35:00 Outpatient E LOGAN LOWRY [facility] [id number] [facility] 2019-05-14 08:30:00 2019-05-14 23:59:00 Outpatient MALDONADO CLAROS [facility] [id number] [facility] 2019-04-30 19:08:00 2019-04-30 22:20:00 Outpatient E BREWERNALDO Moody [facility] [id number] [facility] 2019-04-24 16:30:00 2019-04-24 17:30:00 Outpatient E NEGRITO DOWLING [facility] [id number] [facility] 2018-11-21 09:54:00 2018-11-21 23:59:00 Outpatient MALDONADO CLAROS [facility] [id number] [facility] 2012-07-09 13:56:00 2012-07-09 15:18:00 Emergency E ANNITA NEFF [facility] [id number] [facility] Results Test Description Test Time Test Comments Results Resul t Comments Source DME/SUPPLY JUSTIFICATION 2024-07-25 5 12:36:46 Ordered by an unspecified provider. [facility] DME/SUPPLY JUSTIFICATION 5 14:31:25 Ordered by an unspecified provider. [facility] DME/SUPPLY JUSTIFICATION 3 19:57:30 Ordered by an unspecified provider. [facility] HealthVITAMIN B12 AND FOLATE PANEL, [id number] 12:10:51* Test Item Value Reference Range Interpretation Comme nts VITAMIN B12 (test code = 2132-9) 486 PG/ML 200-950 Folate (Folic Acid), Serum (test code = 2284-8) 6.6 SEE BELOW UG/L ?INTERPRETIVE RANGES ?DEFICIENCY . . . . . . . . . . . . . . . ?UG/L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 hematuria, pelvic pain, urgency, vaginal bleeding, vaginal discharge and vaginal pain. Musculoskeletal: Negative for arthralgias, back pain, joint swelling, myalgias and neck pain. Tail bone pain Skin: Negative for rash. Allergic/Immunologic: Negative for immunocompromised state. Neurological: Negative for dizziness, weakness, light-headedness and headaches. Hematological: Does not bruise/bleed easily. Psychiatric/Behavioral: Negative for confusion and dysphoric mood. The patient is not nervous/anxious. Physical Exam BP 109/76 (Side: Left Arm, Position: SITTING, Cuff Size: Medium Adult) | Pulse73 | Resp 16 | Ht 5' 5" (1.651 m) | Wt 152 lb (68.9 kg) | LMP 10/13/2024 (Exact Date) | SpO2 100% | BMI 25.29 kg/m? Physical ExamVitals and nursing note reviewed. Constitutional: General: She is not in acute distress. Appearance: Normal appearance. She is not toxic-appearing. HENT: Head: Normocephalic and atraumatic. Right Ear: Tympanic membrane and ear canal normal. There is no impacted cerumen. Left Ear: Ear canal normal. There is no impacted cerumen. Nose: Nose normal. No congestion or rhinorrhea. Mouth/Throat: Pharynx: Oropharynx is clear. No oropharyngeal exudate or posterior oropharyngeal erythema. Eyes: General: Right eye: No discharge. Left eye: No discharge. Extraocular Movements: Extraocular movements intact. Conjunctiva/sclera: Conjunctivae normal. Pupils: Pupils are equal, round, and reactive to light. Cardiovascular: Rate and Rhythm: Normal rate and regular rhythm. Pulses: Normal pulses. Heart sounds: Normal heart sounds. No murmur heard. No gallop. Pulmonary: Effort: Pulmonary effort is normal. No respiratory distress. Breath sounds: Normal breath sounds. No wheezing or rales. Abdominal: General: Bowel sounds are normal. There is no distension. Tenderness: There is no abdominal tenderness. There is no guarding. Genitourinary: Comments: deferred Musculoskeletal: General: No swelling. Normal range of motion. Cervical back: Normal range of motion. No rigidity. Right lower leg: No edema. Left lower leg: No edema. Lymphadenopathy: Cervical: No cervical adenopathy. Skin: General: Skin is warm and dry. Coloration: Skin is not jaundiced. Findings: No erythema. Neurological: Mental Status: She is alert. Motor: No weakness. Psychiatric: Mood and Affect: Mood normal. Behavior: Behavior normal. Thought Content: Thought content normal. Judgment: Judgment normal. Recent Labs No visits with results within 4 Week(s) from this visit.Latest known visit with results is: No results found for any previous visit. Assessment and Plan Federico was seen today for physical. Diagnoses and all orders for this visit: Well adult exam- CBC WITH DIFFERENTIAL; Future - LIPID PANEL; Future - IRON AND TIBC; Future - COMP. METABOLIC PANEL (14); Future - HEMOGLOBIN (HB) A1C; Future Iron deficiency anemia secondary to inadequate dietary iron intake- CBC WITH DIFFERENTIAL; Future - IRON AND TIBC; Future - Based on lab work, then will recommend supplements. Coccygeal pain- Recommend using a donut cushion and as needed Tylenol or ibuprofen for pain. Can make follow-up appointment if pain is worsening and uncontrolled. Return in about 1 year (around 11/07/2025) for physical, as needed for illness. BRADLEY Benitez-CSP: DO Kristen FongGarret Sutherland This document was completed using voice recognition software. This can produce yard engineer errors that can at times significantly distort words and phrases. Please interpret any aspect of the note that is nonsensical in light of this fact. [1]No current outpatient medications on file. No current facility-administered medications for this visit.[2] Past Medical History: Diagnosis Date Current moderate episode of major depressive disorder without prior episode ([facility]) 02/20/2023 Depression ALVAREZ (iron deficiency anemia) [3] Family History Problem Relation Name Age of Onset Seizure Disorder Maternal Grandmother Diabetes Mellitus Maternal Grandfather No Known Problems Paternal Grandmother No Known Problems Paternal Grandfather [4] Social History Tobacco Use Smoking status: Never Vaping Use Vaping status: Never Used Substance Use Topics Alcohol use: Never Drug use: Never T [facility]2025-08-14 09:49:59Upcoming Encounters Scheduled Orders Name Type Priority Associated Diagnoses Orde r Schedule CBC WITH DIFFERENTIAL Lab Routine Well adult exam Iron deficiency anemia secondary to inadequate dietary iron intake Expected: 11/07/2024 (Approximate), Expires: 01/06/2025 LIPID PANEL Lab Routine Well adult exam Expected : 11/07/2024 (Approximate), Expires: 02/05/2025 IRON AND TIBC Lab Routine Well adult exam Iron deficiency anemia secondary to inadequate dietary iron intake Expected: 11/07/2024 (Approximate), Expires: 02/05/2025 COMP. METABOLIC PANEL (14) Lab Routine Well adul t exam Expected: 11/07/2024, Expires: 01/06/2025 HEMOGLOBIN (HB) A1C Lab Routine Well adult exam Expected: 11/07/2024, Expires: 02/05/2025 Health Maintenance Due Date Last Done Comments Lipid Panel 2022 PAP SMEAR 21-30 10/04/2023 COVID-19 Vaccine ( season) 2023 05/10/2022 Influenza Vaccines (#1) 2024 Physical Exam 11/07/2026 11/07/2024, 10/25, 11/07/2024, Additional history exists Tdap Vaccines 06/13/2034 06/13/2024, 05/2021, 08/01/2014 RSV Vaccines (1 - 1-dose 75+ series) 2077 Pneumococcal Vaccine: Pediatrics (0 to 5 Years) and At-Risk Patients (6 to 64 Years) Aged Out 05/06/2004, 04/17/2003, 03/03/2003, Additional history exists No longer eligible based on patient's age to complete this topic HPV Vaccines Completed 11/25/2015, 08/01/2014 Meningococcal ACWY Vaccines Completed 06/2022, 07/19/2021, 10/17/2018, Additional history exists [facility]2025-08-14 09:49:59 Diagnosis Well adult exam - Primary Routine general medical examination at a health care facility Iron deficiency anemia secon nabila to inadequate dietary iron intake Coccygeal pain Other disorder of coccyx [facility]2025-08-14 09:49:59 [id number]:39[facility]56 [id number] 00:39:56* Calculated C-SSRS Risk Score (Lifetime/Recent) Answer Date of Assessment Author No Risk Indicated 08/26/2024 4:15 PM Jennie Malave RN * [place] Suicide Severity Rating Scale (Screener/Recent Self-Report) Question Answer Date of Assessment Author 1. Wish to be (Past 1 Month) No 025 4:15 PM Jennie Malave RN 2. Non-Specific Active Suici christine Thoughts (Past 1 Month) No 08/26/2024 4:15 PM HILLARYT Yoel Rodriguez RN 6. Suicidal Behavior (Lifetime) No 4:15 PM Jennie Malave RN [id number] 00:39:56 [facility] [id number] 00:39:56 [facility] [id number] 17:05:38* [id number] 17:05:38 [id number] 17:05:38* Calculated C-SSRS Risk Score (Lifetime/Recent) Answer Date of Assessment Author No Risk Indicated 08/26/2024 4:15 PM CDT Jennie Rodriguez RN * [place] Suicide Severity Rating Scale (Screener/Recent Self-Report) Question Answer Date of Assessment Author 1. Wish to be (Past 1 Month) No 025 4:15 PM HILLARYT Jennie Rodriguez, RONNY 2. Non-Specific Active Suici christine Thoughts (Past 1 Month) No 08/26/2024 4:15 PM CDT Yoel Rodriguez RN 6. Suicidal Behavior (Lifetime) No 5 4:15 PM CDT Jennie Rodriguez RN [id number] 17:05:38Scheduled Orders Health Maintenance Due Date Last Done Comments Lipid Panel 2002 Annual Physical 02/21/2024 02/20/2023 Influenza Vaccine (Season Ended) 2024 DTaP/Tdap/Td Vaccines (9 - Td or Tdap) 06/13/2034 06/13/2024, 08/27/2021, 08/01/2014, Additional history exists Respiratory Syncytial Virus (RSV) Adult Series (1 - 1-dose 75+ series) 2077 Hepatitis B Vaccines Completed 04/17/2003, 2002, 2002 HIB Vaccines Completed 05/06/2004, 03/28, 03/03/2003, Additional history exists Pneumococcal Vaccine: Pediatrics (0 to 5 Years) and At-Risk Patients (6 to 64 Years) Aged Out 05/06/2004, 04/17/2003, 03/03/2003, Additional history exists No longer eligible based on patient's age to complete this topic Hepatitis A Vaccines Completed 11/22/2007, 12/30/2005, 12/13/2004 IPV Vaccines Completed 11/22/2007, 04/27, 03/03/2003, Additional history exists Varicella Vaccines Completed 11/22/2007, 05/06/2004 HPV Vaccines Completed 11/25/2015, 08/01/2014 Meningococcal Vaccine Completed 01/28/2023 , 07/19/2021, 10/17/2018, Additional history exists Rotavirus Vaccines Aged Out No longer eligible based on patient's age to complete this topic [facility] [id number] 17:05:38 Diagnosis Preeclampsia in p eriod - Primary [place] [id number] 17:05:38 [place] [id number] 18:38:48* * Auth/Cert (Routine) Specialty Diagnoses / Procedures Referred By Contbraxton t Referred To Contact Diagnoses Encounter for vaginal delivery vaginal delivery Procedures Olaf Guerrero MD [address] [address] Phone: tel: fax: [facility] ( - [phone] [address] [place] [address] Phone: tel: Referral ID Status Reason Start Date Expiration Date Visits Re quested Visits Authorized [id number] 1 1 [id number] 18:38:48 [place] [id number] 18:38:48* Drug Abuse Screening Test (DAST-10) Question Answer Date of Assessment Author DAST-10 Score 0 08/14/2024 10:02 PM CDT Eduarda España res, RN * Audit-C Score Answer Date of Assessment Author 0 08/14/2024 9:22 AM CDT Melody Carvalho RN * * Calculated C-SSRS Risk Score (Lifetime/Recent) Answer Date of Assessment Author No Risk Indicated 08/14/2024 9:25 AM HILLARYT Melody Carvalho RN * [place] Suicide Severity Rating Scale (Screener/Recent Self-Report) Question Answer Date of Assessment Author 1. Wish to be (Past 1 Month) No 025 9:25 AM Melody Chavez RN 2. Non-Specific Active Suici christine Thoughts (Past 1 Month) No 08/14/2024 9:25 AM HILLARYT Carvalho, Gia a, RN 6. Suicidal Behavior (Lifetime) No 9:25 AM CDT Melody Carvalho RN [facility] [id number] 18:38:48* Yolanda Brown, NICOLAS - 08/16/2024 10:10 AM CDT Discharge Diagnosis Encounter for vaginal delivery Hospital Course Patient was admitted for IOL and augmented to decrease latent phase. She underwent vaginal delivery uncomplicated, and delivered a live . Vaginal lacerations: None All milestones met. At time of discharge she was ambulating, tolerating regular diet, voiding, pain well controlled. control: Denies Will follow up in 2wks and 6wks Information Provided to Patient/Family I discussed with the patient/family details of the stay. See After Visit Summary which were reviewed and shared with patient/family. Operative Procedures Performed Procedures Vaginal delivery Pertinent Physical Exam At Time of Discharge Physical Exam: Vitals and nursing note reviewed. Exam conducted with a printing press operator present. Constitutional: Appearance: Normal appearance. She is well-developed. HENT: Head: Normocephalic and atraumatic. Right Ear: External ear normal. Left Ear: External ear normal. Nose: Nose normal. Eyes: Extraocular Movements: Extraocular movements intact. Conjunctiva/sclera: Conjunctivae normal. Pupils: Pupils are equal, round, and reactive to light. Neck: Comments: No obvious masses or lesions Cardiovascular: Rate and Rhythm: Normal rate and regular rhythm. Pulmonary: Effort: Pulmonary effort is normal. Breath sounds: Normal breath sounds. Comments: Normal work of breathing, no obvious distress Abdominal: Comments: Fundus at umbilicus Musculoskeletal: Comments: No obvious deformities or injuries Skin: General: Skin is warm and dry. Comments: No obvious lesions, rashes or masses Neurological: Mental Status: She is alert and oriented to person, place, and time. Comments: oriented Psychiatric: Mood and Affect: Mood normal. Behavior: Behavior normal. Behavior is cooperative. Body mass index is 27.48 kg/m?. Patient Condition at Discharge Stable Disposition Home [1] Discharge Medications New acetaminophen (Tylenol) 500 MG tablet - 1,000 mg Every 6 hours ibuprofen 600 MG tablet - 600 mg Every 6 hours Stopped ferrous sulfate 27 MG tablet - 27 mg Once hydrocortisone 1 % ointment - 1 Application 2 times daily ursodiol (Actigall) 250 MG tablet - 250 mg 2 times daily Continued VIT-DSS-FE FUM-FA PO - 1 tablet Once Test Results Pending At Discharge Pending Labs Order Current Status Bile Acids Fractionated In process Issues Requiring Follow-Up2wks and 6wks exam Outpatient Follow-UpNo future appointments. Yolanda Brown, ASHUTOSH, SYSTEMS QA ANALYST, AIR QUALITY CONSULTANT-C Cosigned by Judy Figueredo MD at 08/16/2024 3:55 PM CDT [facility] [id number] 18:38:48* Yolanda Brown NP - 08/16/2024 6:45 AM CDT Progress note Patient is PPD 2 from a vaginal delivery that was uncomplicated. She is currently meeting all milestones. She is tolerating PO intake, ambulating without difficulty, voiding freely and without difficulty and reports -BM and +Flatus. Lochia is within normal limits. Patient reports pain is well controlled by current regimen. Vitals: 08/15/24 2337 BP: Pulse: 58 Resp: 18 Temp: SpO2: 95% Physical Exam: Vitals reviewed. Constitutional: Appearance: Normal appearance. She is well-developed. HENT: Head: Normocephalic and atraumatic. Right Ear: External ear normal. Left Ear: External ear normal. Nose: Nose normal. Eyes: Extraocular Movements: Extraocular movements intact. Conjunctiva/sclera: Conjunctivae normal. Pupils: Pupils are equal, round, and reactive to light. Neck: Comments: No obvious masses or lesions Cardiovascular: Rate and Rhythm: Normal rate and regular rhythm. Pulmonary: Effort: Pulmonary effort is normal. Breath sounds: Normal breath sounds. Comments: Normal work of breathing, no obvious distress Abdominal: Comments: Fundus at umbilicus Musculoskeletal: Comments: No obvious deformities or injuries Skin: General: Skin is warm and dry. Comments: No obvious lesions, rashes or masses Neurological: Mental Status: She is alert and oriented to person, place, and time. Comments: oriented Psychiatric: Mood and Affect: Mood normal. Behavior: Behavior normal. Behavior is cooperative. Patient is PPD 2 from a vaginal delivery that was uncomplicated. PPD 2 - Meeting all milestones - AFVSS Labs: - Hgb 11.1 > EBL 100 cc, repeat Hgb 11.3 - RH - Positive - Rubella-Immune - Hep B-neg, HIV-neg, Trep-neg 2. Elevated BP, suspected gHTN vs preE w/o SF - MRBPs ~ 4 hrs apart -admit plt 129, CMP wnl - Asymptomatic - Normotensive - will cont to monitor until discharge - Patient educated on ER warnings after discharge 3. Care - BCM: Declines - EDPS: Denies any symptoms Dispo: Will continue care. Anticipate discharge: today, pending baby's discharge. Will discharge with Rx for Tylenol and Ibuprofen. Yolanda Brown, ASHUTOSH, SYSTEMS QA ANALYST, AIR QUALITY CONSULTANT-c * IQRA Smyth - 08/15/2024 7:57 AM CDT BODY HANGER Progress Note Patient Name: Federico Alex Patient Today's Date: 08/15/2024 S: Federico is doing well today. Pain well controlled on pain medications. Ambulating and voiding freely. Denies headache, scotoma, fever/chills, or lightheadedness. O: BP 113/80 | Pulse 62 | Temp 36.3 ?C (97.4 ?F) | Resp 19 | Ht 1.651 m (5' 5") | Wt 74.9 kg (165 lb 2 oz) | SpO2 97% | Yes | BMI 27.48 kg/m? Vitals: 08/15/24 0024 08/15/24 0712 08/15/24 0712 08/15/24 0712 BP: 113/80 BP Location: Pulse: 62 Resp: 18 19 Temp: 36.3 ?C (97.4 ?F) TempSrc: Oral Oral SpO2: 97% Weight: Height: Physical Exam: General: No acute distress. Respiratory: Non-labored breathing. Abdomen: Soft, non-distended. Appropriately tender. Uterus firm. : Lochia wnl. Extremities: Trace TIM. Intake/output summary: Intake/Output Summary (Last 24 hours) at 08/15/2024 0803 Last data filed at 08/15/2024 0130 Gross per 24 hour Intake 1711.17 ml Output 800 ml Net 911.17 ml A/P: Federico Alex is a 23 y.o. s/p , doing well. 1. PPD#1 - AFVSS - Hb 11.1 > EBL 100 cc > p. No s/sx of anemia. - GI: tolerating regular diet - : voiding without difficulty - Pain: controlled with current medications 2. care - Rh pos, Rub Imm, HIV-, TPA- - - male - BCM: undecided 3. Elevated BP, suspected gHTN vs preE w/o SF - MRBPs ~ 4 hrs apart -admit plt 129, CMP wnl - asxs - normotensive - will cont to monitor Dispo: routine care To be d/w OB TEAM IQRA Smyth * Ileana Rodas MD - 08/14/2024 5:25 PM CDT OB Labor Assessment Progress Note Federico Alex is a 23 y.o., BP: (!) 113/91 Heart Rate: 68 Temp: 36.7 ?C (98 ?F) Resp: 16 Weight: 74.9 kg (165 lb 2 oz) BMI (Calculated): 27.48 Labs: Lab Results Component Value Date ABO Grouping O 08/14/2024 Rh Type Positive 08/14/2024 Hgb 11.1 08/14/2024 HIV Ag/Ab 4th Gen Negative 08/14/2024 Hepatitis B Surface Ag Negative 08/14/2024 Dilation/Effacement/Station Dilation: 5 Effacement (%): 50 Station: -2 Heart Rate (A) Monitor Mode (A): External monitor EFM Monitoring Type: Continuous Baseline FHR (bpm) Fetus A: 120 bpm Variability: Moderate (6-25 BPM) Accelerations (Fetus A): Present Deceleration (Fetus A): None FHR Category: Category I Multiple Births: No Assessment & Plan Encounter for vaginal delivery - s/p AROMc - Will start pit 2x2 Ileana Rodas MD, PGY1 Department of Obstetrics, Gynecology and Reproductive Sciences [facility]2025-05-23 18:38:48Pending Results Scheduled Orders Name Type Priority Associated Diagnoses Order Schedule Bile Acids Fractionated Lab Routine Once (Lab) for 1 Occurrences starting 08/14/2024 until 08/14/2024 POCT glucose meter docked device Point of Care Testing - Docked Device Routine As needed (Lab) until discontinued starting 08/14/2024 Health Maintenance Due Date Last Done Comments Annual Physical 02/21/2024 02/20/2023 Influenza Vaccine (Season Ended) 2024 DTaP/Tdap/Td Vaccines (9 - Td or Tdap) 06/13/2034 06/13/2024, 08/27/2021, 08/01/2014, Additional history exists Respiratory Syncytial Virus (RSV) Adult Series (1 - 1-dose 75+ series) 2077 Hepatitis B Vaccines Completed 04/17/2003, 2002, 2002 HIB Vaccines Completed 05/06/2004, 03/28, 03/03/2003, Additional history exists Pneumococcal Vaccine: Pediatrics (0 to 5 Years) and At-Risk Patients (6 to 64 Years) Aged Out 05/06/2004, 04/17/2003, 03/03/2003, Additional history exists No longer eligible based on patient's age to complete this topic Hepatitis A Vaccines Completed 11/22/2007, 12/30/2005, 12/13/2004 IPV Vaccines Completed 11/22/2007, 04/27, 03/03/2003, Additional history exists Varicella Vaccines Completed 11/22/2007, 05/06/2004 HPV Vaccines Completed 11/25/2015, 08/01/2014 Meningococcal Vaccine Completed 01/28/2023 , 07/19/2021, 10/17/2018, Additional history exists Rotavirus Vaccines Aged Out No longer eligible based on patient's age to complete this topic [id number] 18:38:48 Diagnosis Encounter for vaginal delive ry - Primary Encounter for vaginal delive ry Encounter for care or examin ation of mother immediately after delivery [id number] 18:38:48 [place] [id number] 14:53:23 Discharge instructions given to patient ( attended discharge class). Discussed: , breast care, diet, medications, pain control, Rx to be picked up from the pharmacy, daily showers, kaur care, handwashing, signs of infection. Post warning signs, when to call 911, when to call the doctor for problems, follow up appointment, caring for the baby, help at home, activities, exercise. All other concerns addressed. Patient in stable codnition. Verbalized understanding. [id number] 07:04:35 Problem: Goal: Experiences normal course 08/16/2024703 by Yoli Mendoza RN Outcome: Adequate for Discharge 08/16/2024703 by Yoli Mendoza RN Outcome: Progressing Goal: Appropriate maternal - bonding 08/16/2024703 by Yoli Mendoza RN Outcome: Adequate for Discharge 08/16/2024703 by Yoli Mendoza RN Outcome: Progressing Goal: Establishment of infant feeding pattern 08/16/2024703 by Yoli Mendoza RN Outcome: Adequate for Discharge 08/16/2024703 by Yoli Mendoza RN Outcome: Progressing Goal: Incisions, wounds, or drain sites healing without S/S of infection 08/16/2024703 by Yoli Mendoza RN Outcome: Adequate for Discharge 08/16/2024703 by Yoli Mendoza RN Outcome: Progressing Problem: Pain - Adult Goal: Verbalizes/displays adequate comfort level or baseline comfort level 08/16/2024703 by Yoli Mendoza RN Outcome: Adequate for Discharge 08/16/2024703 by Yoli Mendoza RN Outcome: Progressing Problem: Infection - Adult Goal: Absence of infection at discharge 08/16/2024703 by Yoli Mendoza RN Outcome: Adequate for Discharge 08/16/2024703 by Yoli Mendoza RN Outcome: Progressing Goal: Absence of infection during hospitalization 08/16/2024703 by Yoli Mendoza RN Outcome: Adequate for Discharge 08/16/2024703 by Yoli Mendoza RN Outcome: Progressing Goal: Absence of fever/infection during anticipated neutropenic period 08/16/2024703 by Yoli Mendoza RN Outcome: Adequate for Discharge 08/16/2024703 by Yoli Mendoza RN Outcome: Progressing Problem: Safety - Adult Goal: Free from fall injury 08/16/2024703 by Yoli Mendoza RN Outcome: Adequate for Discharge 08/16/2024703 by Yoli Mendoza RN Outcome: Progressing Problem: Discharge Planning Goal: Discharge to home or other facility with appropriate resources 08/16/2024703 by Yoli Mendoza RN Outcome: Adequate for Discharge 08/16/2024703 by Yoli Mendoza RN Outcome: Progressing Problem: Chronic Conditions and Co-morbidities Goal: Patient's chronic conditions and co-morbidity symptoms are monitored and maintained or improved 08/16/2024703 by Yoli Mendoza RN Outcome: Adequate for Discharge 08/16/2024703 by Yoli Mendoza RN Outcome: Progressing The patient is Moderately Stable - Low risk of patient condition declining or worsening The patient's goals for the shift include pain control, , discharge [facility]2025-05-22 20:30:00 The patient is Moderately Stable - Low risk of patient condition declining or worsening The patient's goals for the shift include pain management, comfort care, nunez with , and safety. The clinical goals for the shift include continuation of care per MD. Problem: Goal: Experiences normal course Recent Flowsheet Documentation Taken 08/15/20242029 by Eduarda Wilson RN Experiences normal course: Monitor maternal vital signs Assess uterine involution Goal: Appropriate maternal - bonding Recent Flowsheet Documentation Taken 08/15/20242029 by Eduarda Wilson RN Appropriate maternal- bonding: Identify family support Referral to marriage and family social worker or window caser as needed Goal: Establishment of infant feeding pattern Recent Flowsheet Documentation Taken 08/15/20242029 by Eduarda Wilson RN Establishment of feeding pattern: Assess breast/bottle feeding Refer to as needed Goal: Incisions, wounds, or drain sites healing without S/S of infection Recent Flowsheet Documentation Taken 08/15/20242029 by Eduarda Wilson RN Incisions, wounds, or drain sites healing without sign and symptoms of infection: TWICE DAILY: Assess and document skin integrity Problem: Pain - Adult Goal: Verbalizes/displays adequate comfort level or baseline comfort level Recent Flowsheet Documentation Taken 08/15/20242029 by Eduarda Wilson RN Verbalizes/displays adequate comfort level or baseline comfort level: Encourage patient to monitor pain and request assistance Assess pain using appropriate pain scale Implement non-pharmacological measures as appropriate and evaluate response Consider cultural and social influences on pain and pain management Problem: Infection - Adult Goal: Absence of infection at discharge Recent Flowsheet Documentation Taken 08/15/20242029 by Eduarda Wilson RN Absence of infection at discharge: Assess and monitor for signs and symptoms of infection Monitor lab/diagnostic results Monitor all insertion sites i.e., indwelling lines, tubes and drains Administer medications as ordered Instruct and encourage patient and family to use good hand hygiene technique Goal: Absence of infection during hospitalization Recent Flowsheet Documentation Taken 08/15/20242029 by Eduarda Wilson RN Absence of infection during hospitalization: Assess and monitor for signs and symptoms of infection Monitor lab/diagnostic results Monitor all insertion sites i.e., indwelling lines, tubes and drains Administer medications as ordered Instruct and encourage patient and family to use good hand hygiene technique Goal: Absence of fever/infection during anticipated neutropenic period Recent Flowsheet Documentation Taken 08/15/20242029 by Eduarda Wilson RN Absence of fever/infection during anticipated neutropenic period: Monitor white blood cell count Administer growth factors as ordered Problem: Safety - Adult Goal: Free from fall injury Recent Flowsheet Documentation Taken 08/15/20242029 by Eduarda Wilson RN Free from fall injury: Instruct family/caregiver on patient safety Based on caregiver fall risk screen, instruct family/caregiver to ask for assistance with transferring if caregiver noted to have fall risk factors Problem: Discharge Planning Goal: Discharge to home or other facility with appropriate resources Recent Flowsheet Documentation Taken 08/15/20242029 by Eduarda Wilson RN Discharge to home or other facility with appropriate resources: Identify barriers to discharge with patient and caregiver Arrange for needed discharge resources and transportation as appropriate Arrange for interpreters to assist at discharge as needed [facility] [id number] 10:40:00 This note was copied from a baby's chart. Assisted with sustained. robert [facility] [id number] 09:24:30 Problem: Goal: Experiences normal course 08/15/2024923 by Yoli Mendoza RN Outcome: Progressing 08/15/2024923 by Yoli Mendoza RN Outcome: Progressing Goal: Appropriate maternal - bonding 08/15/2024923 by Yoli Mendoza RN Outcome: Progressing 08/15/2024923 by Yoli Mendoza RN Outcome: Progressing Goal: Establishment of feeding pattern 08/15/2024923 by Yoli Mendoza RN Outcome: Progressing 08/15/2024923 by Yoli Mendoza RN Outcome: Progressing Goal: Incisions, wounds, or drain sites healing without S/S of infection 08/15/2024923 by Yoli Mendoza RN Outcome: Progressing 08/15/2024923 by Yoli Mendoza RN Outcome: Progressing Problem: Pain - Adult Goal: Verbalizes/displays adequate comfort level or baseline comfort level 08/15/2024923 by Yoli Mendoza RN Outcome: Progressing 08/15/2024923 by Yoli Mendoza RN Outcome: Progressing Problem: Infection - Adult Goal: Absence of infection at discharge 08/15/2024923 by Yoli Mendoza RN Outcome: Progressing 08/15/2024923 by Yoli Menodza RN Outcome: Progressing Goal: Absence of infection during hospitalization 08/15/2024923 by Yoli Mendoza RN Outcome: Progressing 08/15/2024923 by Yoli Mendoza RN Outcome: Progressing Goal: Absence of fever/infection during anticipated neutropenic period 08/15/2024923 by Yoli Mendoza RN Outcome: Progressing 08/15/2024923 by Yoli Mendoza RN Outcome: Progressing Problem: Safety - Adult Goal: Free from fall injury 08/15/2024923 by Yoli Mendoza RN Outcome: Progressing 08/15/2024923 by Yoli Mendoza RN Outcome: Progressing Problem: Discharge Planning Goal: Discharge to home or other facility with appropriate resources 08/15/2024923 by Yoli Mendoza RN Outcome: Progressing 08/15/2024923 by Yoli Mendoza RN Outcome: Progressing Problem: Chronic Conditions and Co-morbidities Goal: Patient's chronic conditions and co-morbidity symptoms are monitored and maintained or improved 08/15/2024923 by Yoli Mendoza RN Outcome: Progressing 08/15/2024923 by Yoli Mendoza RN Outcome: Progressing The patient is Moderately Stable - Low risk of patient condition declining or worsening The patient's goals for the shift include , pain control, ambulation ARYT Luba [id number] 07:27:16 Images from the original note were not included. 11 Maternal Discharge Education The following are general suggestions on how to care for yourself at home. Your doctor may have additional instructions for you. You many call your physician/clinic for questions or concerns. ACTIVITY ? Rest is important, rest during the day when your baby sleeps. Limit visitors. Ask family members and/or friends to help you as needed. ? Exercise - Walking is the best exercise for you. Strenuous activity should be avoided until after your six weeks checkup. Overexertion may cause bleeding. ? Avoid lifting anything heavier than your baby for the first two weeks or as directed by your physician. Stair climbing should be limited. Check with your physician for specific instructions. ? Driving a car should be delayed until approved by your physician. Short trips as a passenger may be permitted during the first two weeks or as instructed by your physician. ? Restrict java groovy developer to light tasks. Enlist the aid of family and/or friends for housekeeping duties like vacuuming, sweeping and laundry. ? Returning to work will be discussed at your post-delivery checkup. NUTRITION ? Eat a healthy, well-balanced diet, including fresh fruits and vegetables every day. Drink to thirst or a minimum of 6 to 8 glasses of fluids each day. ? Eat a healthy, well-balanced diet, including fresh fruits and vegetables every day. Drink to thirst or a minimum of 6 to 8 glasses of fluids each day. ? Continue taking your vitamins as directed by your physician. ? Consult your physician prior to taking any other mibv-hvq-kietmpa or prescription medications. HYGIENE ? Continue kaur care with warm water after going to the bathroom. Change your peripads with each trip to the bathroom. ? Sitz baths may be taken 3 to 4 times daily if stitches or hemorrhoids are painful. The stitches will absorb in 10 to 12 days and do not need to be removed. ? Do not douche or use tampons for six weeks after delivery. ? Kegal exercises will help to promote healing and improve muscle tone. These exercises are done by squeezing the vaginal muscles together - as if you are trying to stop the flow of urine. ? Avoid sexual activity until after your post-delivery checkup. You can become before the return of your normal period. ? Shower daily; avoid tub bathing. ? If your baby, wash your breasts once daily with your shower. ? For delivery, carefully cleanse your incision with soap and water during the shower, pat dry gently. If clips or mihaela are used, they will be removed before you go home or at your first doctor's office visit. ELIMINATION ? Avoid constipation. You may accomplish this by maintaining adequate fluid intake and by increasing fiber in your diet. ? Consult your physician before using any bure-giy-ugtrahh stool softeners or laxatives. BREAST CARE ? Nipple tenderness is common during the first week of ; purified lanolin cream may be applied after nursing for nipple tenderness. If your nipples are cracked, blistered, bruised or bleeding contact your healthcare provider or counselor/data management consultant. ? Fullness is normal; however, if the breasts become painful or hard, you may be helped by frequent nursing/pumping, warm showers or heat applied to the breast before nursing and ice packs after . Consult your doctor or counselor if pain and firmness persist. Bottle-feeding ? Wear a good supportive bra. ? Avoid stimulating the breasts. ? Ice packs may be used to relieve swelling. ? Discuss additional measures with your healthcare provider. EMOTIONS: ? Normal feelings after delivery may include avni, excitement, fatigue, worry and/or nervousness. ? Baby blues are common and include mood swings, sadness, crying, irritability, frustration and sensitivity. Support from family and friends may help and these feelings should go away in two weeks. If these feelings do not go away or get worse, call your healthcare provider. You could be experiencing depression. CALL YOUR DOCTOR/CLINIC: If you should have any of the following: ? Fever - 100.4 orally or greater. ? Burning on urination or inability to urinate. ? Excessive bleeding - more than a heavy period. ? Swelling, redness and/or tenderness in one or more areas of the breast or legs. ? Foul smelling vaginal drainage. ? Redness, swelling and/or drainage from your abdominal incision or episiotomy stitches. ? Excessive pain. ? Headache, blurry vision, epigastric pain, or swelling of hands or feet. Call your doctor of an appointment for your post-delivery checkup. ADDITIONAL INSTRUCTIONS: is not a reliable method of control. Discuss your control options with your healthcare provider. Call [phone] for [facility] programs. Lisa Naidu2025-05-22 07:27:15 Images from the original note were not included. [id number] Understanding Depression It?s common to feel tired and brush after having a baby. But if you have very strong feelings of sadness or anger or have trouble doing your daily tasks, you may have a serious mood disorder called depression. It can be treated with counseling and medicines. Left untreated, it may stop you from bonding with your baby. It?s important to see your health care provider right away and get help. What is depression? depression is a serious mood disorder that can happen after giving . About 3 out of 20 new moms have it. Symptoms can include feeling very intense sadness, tiredness, and anxiety. These feelings can become so strong that it?s hard to do your daily tasks. You may find it hard to take care of yourself and your baby. Symptoms may start about 1 to 3 weeks after your baby is born. But they can also appear up to a year later. If you or the people around you think you may have depression, or if you have symptoms for more than 2 weeks, contact your health care provider right away. Treatment is available. Is it depression or the baby blues? depression is different from the ?baby blues? ( blues). The baby blues are common soon after giving . You may feel sad, brush, or anxious. But these feelings go away in about 2 weeks. If you still have these feelings after 2 weeks, or if you start to feel worse at any time, contact your health care provider. They will see if you have depression. It?s important to get treated right away. What causes depression? It's likely caused by a mix of physical and emotional factors. These include: ? Changing hormone levels. Right after you have a baby, your levels of estrogen and progesterone drop. This sudden change may set off depression. Your thyroid hormone levels may also drop at the same time. ? Depression. You may be at greater risk if you have a history of depression or if you are currently being treated for it. ? Extreme tiredness (fatigue). It can take a few weeks to recover from giving . And you may not get the rest or sleep you need. ? Lifestyle issues. Other things may also play a role. These can include money, health, or relationship problems. Or, you may not be getting support from friends or family. Symptoms of depression Symptoms may vary. But they are very intense and may include: ? Feeling very tired, with no energy (fatigue). ? Crying often or for no reason. ? Feeling very sad, anxious, or overwhelmed. ? Being brush. ? Feeling that you can?t take care of your baby. ? Sleeping too much, or not sleeping. ? Having trouble eating. ? Having trouble making decisions and focusing. ? Not being able to do your daily tasks. ? Not being interested in your baby. ? Not wanting to be around family or friends. ? Wanting to hurt yourself or your baby. Diagnosing depression Early diagnosis and treatment are important. Only a health care provider can diagnose you. Contact your provider if you have symptoms of depression. Also contact them if you have trouble doing your daily activities for longer than 2 weeks. Your provider will talk with you and ask for a health history. You may be asked to fill out a form that helps find depression. You may also have some blood tests done. These are used to find out if your symptoms may be caused by thyroid or other health problems. If not treated, depression can be serious for you and your baby. Those who aren't treated: ? Are less likely to breastfeed their baby. ? May not nunez with their baby. ? Are less likely to take good care of their baby. ? Are more likely to have problems with their partner. ? May have thoughts of harming themselves. ? May have thoughts of harming their baby. Are you at risk for depression? You are more at risk if you have: ? A history of depression (including depression in a past ). ? A family member with depression. ? A history of alcohol or drug abuse. ? Had a problem in childbirth, such as a premature . ? A baby with health problems or special needs. ? No emotional support from your partner, family, or friends. ? Other stresses in your life, such as money or relationship problems. ? Mixed feelings about this , such as with an unplanned . Treatment for depression Treatment is available. Your health care provider can help you decide on the best treatment for you. They may advise: ? Medicine. Antidepressants are the main type of medicine for depression. These medicines affect the brain chemicals that help control moods. Let your provider know if you are . Most antidepressants are considered safe to use when . ? Talk therapy (counseling or psychotherapy). This involves talking with a mental health provider about your feelings and issues that might add to the depression. Therapy may be done in private sessions with just you and the provider. Or it may be done in group sessions with other new parents. You and your mental health provider may talk about: o Your new role and changing relationships with others. o Balancing your well-being while caring for your baby. Medicine and talk therapy can be used alone or together. Joining a support group may also help you cope. Check online for support groups in your area, or ask your provider for suggestions. Managing depression Along with seeing your health care provider and getting treatment, it?s important to take care of yourself. Tell your family and friends how you are feeling and what kind of help or support you need. Make sure to also: ? Get enough sleep. ? Eat healthy foods. ? Rest when your baby takes a nap. ? Get some light exercise. ? Ask for and accept any help with meals, shopping, taking care of the baby, and laundry. Call 988 in a crisis If you have thoughts of harming yourself or others, call or text 988 now. You will be connected to trained crisis counselors at the National Suicide Prevention Lifeline. An online chat option is also available at https://Roobiqline.org. Lifeline is free and available 17/10. To learn more Find more information at: ? [employer] at www..net ? Office on Women's Health at www.womenshealth.gov Last Reviewed Date: 2024 00:00:00 ? 8745-5765 The [employer], [employer]. All rights reserved. This information is not intended as a substitute for professional medical care. Always follow your healthcare professional's instructions. [facility] Luba NaiduLagmveh1512-88-83 07:27:12 Images from the original note were not included. [address]25 After a Vaginal After having a baby, your body may be very tired. It can take time to recover.. You may stay in the hospital from 1 to 4 days. In some cases, you may be able to go home the same day. Right after the delivery Your temperature and blood pressure will be checked until they are stable. A nurse or other healthcare provider will watch you as you rest. You may have afterbirth pains. These are cramps caused by the uterus shrinking. Sanitary pads are used to soak up the discharge of the uterine lining. To make sure that you aren?t bleeding too much, the pad will be checked. And the firmness of your uterus will be checked. To do this, a nurse will gently push down on your stomach. If you had anesthesia, you?ll be watched closely until you can feel and move your toes. If you have pain between your vagina and anus (perineal pain), an ice pack can help. Crane care While still in the hospital or center, you?ll learn how to hold and feed your baby. You will also be given directions on how to care for your baby. This includes bathing and feeding. Getting ready to go home You may be anxious to go home as soon as possible. Before you and your baby go home, a healthcare provider will check to be sure you are healthy enough to take care of your baby and yourself. You?re ready to go home when: ? You can walk to and use the bathroom without help. ? You can eat solid food and swallow pills (if needed). ? You have no sign of infection or other health problems, including fever. ? You have pain control. ? Your vaginal bleeding isn't heavy. ? You are able to care for your and are emotionally stable. Before going home, you?ll be given written directions for home self-care after vaginal delivery. Follow these directions carefully. If you have questions or concerns, talk about them now. If you have stitches You may have get stitches in the skin near your vagina. The stitches might have closed an incision that enlarged the opening of your vagina (episiotomy). Or you may have needed stitches to repair torn skin. Either way, your stitches should dissolve in weeks. Until then, it's important to keep the stitches clean. You can help reduce mild pain, aid healing, and reduce your risk of infection. These tips can help: ? Gently wipe from front to back after you urinate or have a bowel movement. ? After wiping, spray warm water on the area. Or you can have a sitz bath. This means sitting in a tub with a few inches of water in it. Then pat the area dry or use a hairdryer on a cool setting. ? Follow your healthcare team's specific cleansing instructions about using soap or medicines on the area. ? You can take a shower unless told not to. ? Change sanitary pads at least every 2 to [address] ? [address] cold or heat packs on the area as directed by your healthcare providers or nurses. Keep a thin towel between the pack and your skin. ? Sit on firm seats so the stitches pull less. follow-up Schedule a follow-up exam with your healthcare provider for about 6 weeks after delivery. During this exam, your uterus and vaginal area will be checked. Contact your provider if you think you or your baby are having any problems. When to call your healthcare provider Call your healthcare provider right away if any of the following occur: ? A fever of 100.4? F ( 38.0?C) or higher, or as directed by your provider ? Bleeding that needs a new sanitary pad after an hour, or large blood clots. hemorrhage is more bleeding than normal after the of a baby. It most often happens after the placenta is delivered. But it can also happen later. ? Pain in your vagina that gets worse and isn't eased with medicine ? Swelling, discharge, or more pain from vaginal tear or episiotomy ? Burning, pain, red streaks, or lumpy areas in your breasts that may occur with flu-like symptoms ? Cracks, blisters, or blood on your nipples ? Burning or pain when you urinate ? Nausea or vomiting ? Dizziness or fainting ? Feelings of extreme sadness or anxiety, or a feeling that you don?t want to be with your baby ? Belly pain that isn?t eased with medicine ? Vaginal discharge that has a bad odor ? No bowel movement for 5 days ? Painful urination, or inability to control urination ? Redness, warmth, or pain in the lower leg ? Chest pain Last Reviewed Date: 2022 00:00:00 ? 7712-4656 The [employer]. All rights reserved. This information is not intended as a substitute for professional medical care. Always follow your healthcare professional's instructions. [facility]uj[facility] RN arrived at delivery at: 1840 Patient received Delayed Cord Clamping for 30 seconds Initial appearance: Good Tone[x] Poor Tone[] Breathing/Crying[x] Other[]If other, please explain: Initial Heart Rate: >100[x] 60-100[] <60[] Interventions: RN provided: Drying/Stimulation[x] Suction[] Warmed[x] Oxygen[] Abel or BRICK LAYER called at: No Patient: remained in L&D[x] transferred to NICU[] [facility]2025-05-21 21:30:00 The patient is Moderately Stable - Low risk of patient condition declining or worsening The patient's goals for the shift include pain management, safety, comfort care, nunez with . The clinical goals for the shift include continuation of care per MD. Problem: Goal: Experiences normal course Recent Flowsheet Documentation Taken 08/14/20242108 by Eduarda Wilson RN Experiences normal course: Monitor maternal vital signs Assess uterine involution Goal: Appropriate maternal - bonding Recent Flowsheet Documentation Taken 08/14/20242108 by Eduarda Wilson RN Appropriate maternal- bonding: Identify family support Referral to marriage and family social worker or window caser as needed Goal: Establishment of infant feeding pattern Recent Flowsheet Documentation Taken 08/14/20242108 by Eduarda Wilson RN Establishment of infant feeding pattern: Assess breast/bottle feeding Refer to as needed Goal: Incisions, wounds, or drain sites healing without S/S of infection Recent Flowsheet Documentation Taken 08/14/20242108 by Eduarda Wilson RN Incisions, wounds, or drain sites healing without sign and symptoms of infection: ADMISSION and DAILY: Assess and document risk factors for pressure ulcer development Problem: Pain - Adult Goal: Verbalizes/displays adequate comfort level or baseline comfort level Recent Flowsheet Documentation Taken 08/14/20242108 by Eduarda Wilson RN Verbalizes/displays adequate comfort level or baseline comfort level: Encourage patient to monitor pain and request assistance Assess pain using appropriate pain scale Implement non-pharmacological measures as appropriate and evaluate response Consider cultural and social influences on pain and pain management Problem: Infection - Adult Goal: Absence of infection at discharge Recent Flowsheet Documentation Taken 08/14/20242108 by Eduarda Wilson RN Absence of infection at discharge: Assess and monitor for signs and symptoms of infection Monitor lab/diagnostic results Monitor all insertion sites i.e., indwelling lines, tubes and drains Administer medications as ordered Instruct and encourage patient and family to use good hand hygiene technique Goal: Absence of infection during hospitalization Recent Flowsheet Documentation Taken 08/14/20242108 by Eduarda Wilson RN Absence of infection during hospitalization: Assess and monitor for signs and symptoms of infection Monitor lab/diagnostic results Monitor all insertion sites i.e., indwelling lines, tubes and drains Administer medications as ordered Instruct and encourage patient and family to use good hand hygiene technique Identify and instruct in appropriate isolation precautions for identified infection/condition Problem: Safety - Adult Goal: Free from fall injury Recent Flowsheet Documentation Taken 08/14/20242108 by Eduarda Wilson RN Free from fall injury: Instruct family/caregiver on patient safety Based on caregiver fall risk screen, instruct family/caregiver to ask for assistance with transferring if caregiver noted to have fall risk factors Problem: Discharge Planning Goal: Discharge to home or other facility with appropriate resources Recent Flowsheet Documentation Taken 08/14/20242108 by Eduarda Wilson RN Discharge to home or other facility with appropriate resources: Identify barriers to discharge with patient and caregiver Arrange for needed discharge resources and transportation as appropriate Problem: Chronic Conditions and Co-morbidities Goal: Patient's chronic conditions and co-morbidity symptoms are monitored and maintained or improved Recent Flowsheet Documentation Taken 08/14/20242108 by Eduarda Wilson RN Care Plan - Patient's Chronic Conditions and Co-Morbidity Symptoms are Monitored and Maintained or Improved: Monitor and assess patient's chronic conditions and comorbid symptoms for stability, deterioration, or improvement [facility] [id number] 21:09:00 Patient and arrived into unit accompanied by L&D nurse. Assessment and fundal tone verified. Oriented patient to room and provided her with admission instructions and paperwork. Education provided on warning signs. [facility] The patient is Moderately Stable - Low risk of patient condition declining or worsening The patient's goals for the shift include pain management The clinical goals for the shift include pain management [facility] Radha Wise RNRiyolandeB[facility] HospitalAuwypii1041-43-71 09:31:37 The patient is Moderately Stable - Low risk of patient condition declining or worsening Problem: Antepartum Goal: Maintain as long as maternal and/or condition is stable Outcome: Progressing Problem: Vaginal or Section Goal: and maternal status remain reassuring during the process Outcome: Progressing Problem: Pain - Adult Goal: Verbalizes/displays adequate comfort level or baseline comfort level Outcome: Progressing Problem: Infection - Adult Goal: Absence of infection at discharge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
[2024-11-13 17:02] LABS: Influenza A Ag Negative; Influenza B Ag Negative; SARS-CoV-2 Antigen Rapid Res Negative (Negative)
--- NOTE | 2024-11-13 17:05 | ER ---
Nurse's Notes [facility] Name: Federico Conway Age: 24 yrs Sex: Female : 2000 Arrival Date: 11/13/2024 Time: 16:08 Bed 10 Private MD: Diagnosis: Headache Presentation: 11/13 16:17 Chief complaint: Patient states: Chills and headache onset this morning. Coronavirus cm10 screen: Client denies travel out of the [place] in the last 14 days. Ebola Screen: Patient denies travel to an Ebola-affected area in the 21 days before illness onset. Initial Sepsis Screen: Does the patient meet any 2 criteria? No. Patient's initial sepsis screen is negative. Does the patient have a suspected source of infection? No. Patient's initial sepsis screen is negative. Risk Assessment: Do you want to hurt yourself or someone else? Patient reports no desire to harm self or others. Onset of symptoms was November 13, 2024. 16:17 Method Of Arrival: Ambulatory cm10 16:17 Acuity: BRINDA 4 cm10 Triage Assessment: 16:18 Headache History: Denies prior headaches. General: Appears in no apparent distress. cm10 comfortable, Behavior is calm, cooperative, appropriate for age. Neuro: No deficits noted. Level of Consciousness is awake, alert, obeys commands, Oriented to person, place, time, situation, Appropriate for age. Neuro: Reports headache. Respiratory: No deficits noted. Airway is patent Respiratory effort is even, unlabored, Respiratory pattern is regular, symmetrical. Historical: - Allergies: 16:18 No Known Allergies; cm10 - PMHx: 16:18 Anemia; cm10 - PSHx: 16:18 None; cm10 - Immunization history:: Adult Immunizations up to date. - Infectious Disease History:: Denies. - Social history:: Smoking status: Patient denies any tobacco usage or history of. Screenin:06 [facility] ED Fall Risk Assessment (Adult) History of falling in the last 3 months, dd2 including since admission No falls in past 3 months (0 pts) Confusion or Disorientation No (0 pts) Intoxicated or Sedated No (0 pts) Impaired Gait No (0 pts) Mobility Assist Device Used No (0 pt) Altered Elimination No (0 pt) Score/Fall Risk Level 0 - 2 = Low Risk Oriented to surroundings, Maintained a safe environment, Educated pt \T\ family on fall prevention, incl call for assistance when getting out of bed, Assessed \T\ reinforced patient's understanding of fall precautions, Hourly rounding (assess needs \T\ fall precautionary measures) done. Abuse screen: Denies threats or abuse. Denies injuries from another. Nutritional screening: No deficits noted. Tuberculosis screening: No symptoms or risk factors identified. Assessment: 17:06 General: Appears in no apparent distress. uncomfortable, Behavior is calm, cooperative, dd2 appropriate for age. Pain: Complains of pain in head Pain currently is 7 out of 10 on a pain scale. Neuro: Reports headache. Cardiovascular: No deficits noted. Respiratory: No deficits noted. GI: No deficits noted. No signs and/or symptoms were reported involving the gastrointestinal system. : No deficits noted. No signs and/or symptoms were reported regarding the genitourinary system. EENT: No deficits noted. No signs and/or symptoms were reported regarding the EENT system. Derm: No deficits noted. No signs and/or symptoms reported regarding the dermatologic system. Musculoskeletal: No deficits noted. No signs and/or symptoms reported regarding the musculoskeletal system. Vital Signs: 16:17 BP 109 / 72; Pulse 86; Resp 18; Temp 97.2(TE); Pulse Ox 99% ; Weight 68.95 kg; Height 5 cm10 ft. 5 in. ; Pain 6/10; 17:16 BP 113 / 76; Pulse 88; Resp 16; Temp 97.8; Pulse Ox 100% on R/A; dd2 16:17 Body Mass Index 25.29 (68.95 kg, 165.1 cm) cm10 16:17 Pain Scale: Adult cm10 [place] Coma Score: 17:04 Eye Response: spontaneous(4). Motor Response: obeys commands(6). Verbal Response: kb oriented(5). Total: 15. 17:06 Eye Response: spontaneous(4). Motor Response: obeys commands(6). Verbal Response: dd2 oriented(5). Total: 15. ED Course: 16:12 Patient arrived in ED. im 16:12 Kiley Marques [facility]-C [facility]. kb 16:12 Morgan Mcgregor MD is Attending Physician. kb 16:18 Triage completed. cm10 16:18 Arm band placed on right wrist. Patient placed in waiting room. cm10 16:23 COVID-19 Ag + Flu A+B Ag Sent. cm10 17:06 Patient has correct armband on for positive identification. Bed in low position. Call dd2 light in reach. Client placed on continuous cardiac and pulse oximetry monitoring. NIBP monitoring applied. Door closed. Noise minimized. Verbal reassurance given. 17:06 No provider procedures requiring assistance completed. Patient did not have IV access dd2 during this emergency room visit. Patient maintains SpO2 saturation greater than 95% on room air. 17:16 Provided Education on: D/C EDUCATION. dd2 Administered Medications: 16:23 Drug: Acetaminophen PO 1000 mg PO once Route: PO; cm10 Medication: 17:06 VIS not applicable for this client. dd2 Outcome: 17:05 Discharge ordered by . kb 17:16 Discharged to home ambulatory, dd2 17:16 Condition: stable 17:16 Discharge instructions given to patient, Instructed on discharge instructions, follow up and referral plans. Demonstrated understanding of instructions, follow-up care, 17:21 Patient left the ED. dd2 Signatures: Kiley Marques, GAS [employer]ATION ATTENDANT-C GAS STATION ATTENDANT-Kusum Varghese Clarissa, RN RN cm10 ANA BOSCH RN RN dd2
--- NOTE | 2024-11-13 17:05 | EDPHYS ---
Physician Documentation [facility] Name: Federico Conway Age: 24 yrs Sex: Female : 2000 Arrival Date: 11/13/2024 Time: 16:08 Bed 10 Private MD: ED Physician Morgan Mcgregor HPI: 11/13 16:19 This 24 yrs old Black Female presents to ER via Ambulatory with complaints of Headache, kb Chills. 16:19 Pt is a 24 year old female who presents for headache and chills that started this kb morning. states she took some ibuprofen and the chills went away, but the headache persisted. States her boyfriend has had fever, but she doesn't know about herself. Denies cough, congestion, sore throat, n/v/d. . Historical: - Allergies: 16:18 No Known Allergies; cm10 - PMHx: 16:18 Anemia; cm10 - PSHx: 16:18 None; cm10 - Immunization history:: Adult Immunizations up to date. - Infectious Disease History:: Denies. - Social history:: Smoking status: Patient denies any tobacco usage or history of. ROS: 16:19 Constitutional: As per HPI kb Exam: 16:19 Constitutional: This is a well developed, well nourished patient who is awake, alert, kb and in no acute distress. Head/Face: Normocephalic, atraumatic. ENT: Moist Mucous membranes Cardiovascular: Regular rate Respiratory: Respirations even and unlabored. No increased work of breathing. Talking in full sentences Skin: Warm, dry with normal turgor. Normal color. MS/ Extremity: Pulses equal, no cyanosis. Neurovascular intact. Full, normal range of motion. Neuro: Awake and alert, GCS 15, oriented to person, place, time, and situation. Vital Signs: 16:17 BP 109 / 72; Pulse 86; Resp 18; Temp 97.2(TE); Pulse Ox 99% ; Weight 68.95 kg; Height 5 cm10 ft. 5 in. ; Pain 6/10; 17:16 BP 113 / 76; Pulse 88; Resp 16; Temp 97.8; Pulse Ox 100% on R/A; dd2 16:17 Body Mass Index 25.29 (68.95 kg, 165.1 cm) cm10 16:17 Pain Scale: Adult cm10 [place] Coma Score: 17:04 Eye Response: spontaneous(4). Motor Response: obeys commands(6). Verbal Response: kb oriented(5). Total: 15. 17:06 Eye Response: spontaneous(4). Motor Response: obeys commands(6). Verbal Response: dd2 oriented(5). Total: 15. MDM: 16:12 Medical Screening Exam initiated kb 17:04 Data reviewed: vital signs, nurses notes. kb 17:04 Differential diagnosis: migraine, viral illness, tension headache. Counseling: I had a kb detailed discussion with the patient and/or guardian regarding the historical points, exam findings, and any diagnostic results supporting the discharge/admit diagnosis, lab results, the need for outpatient follow up, a family practitioner, to return to the emergency department if symptoms worsen or persist or if there are any questions or concerns that arise at home. 11/13 16:17 Order name: COVID-19 Ag + Flu A+B Ag; Complete Time: 17:04 cm10 Administered Medications: 16:23 Drug: Acetaminophen PO 1000 mg PO once Route: PO; cm10 Disposition: 11/14 13:51 Co-signature as Attending Physician, Morgan Mcgregor MD I agree with the assessment and hermes plan of care. Disposition Summary: 11/13/24 17:05 Discharge Ordered Notes: Location: Home kb Condition: Stable kb Diagnosis - Headache kb Followup: kb - With: Emergency Department - When: As needed - Reason: Worsening of condition Followup: kb - With: Private Physician - When: 2 - 3 days - Reason: Recheck today's complaints, Continuance of care, Re-evaluation by your physician Discharge Instructions: - Discharge Summary Sheet kb - General Headache Without Cause, [id number] kb Forms: - Work release form kb - Medication Reconciliation Form kb - Antibiotic Education kb - Prescription Opioid Use kb - Patient Portal Instructions kb - Leadership Thank You Letter kb Signatures: Dispatcher [employer] Kiley Hines, BRADLEY-Bon HUERTA-Morgan Welch MD MD cha Martinez, Clarissa, RN RN cm10 Corrections: (The following items were deleted from the chart) 11/13 16:17 16:17 COVID-19 Ag + Flu A+B Ag+I.LAB.BRZ ordered. EDMS EDMS 16:19 16:19 COVID-19 Ag + Flu A+B Ag+I.LAB.BRZ ordered. EDMS EDMS
[2024-11-14 00:36] VITALS: BP 113/76; TEMP 97.8; O2SAT 100
== END 2024-11-13 17:21 | disposition home or self-care (01) ==
LOC: ER 16:08
DX: R51.9 Headache, unspecified (principal); Z11.52 Encounter for screening for COVID-19
CPT/HCPCS: 36415; 87428